=== PATIENT | male | born 1960 | race Caucasian/White ===

== ENCOUNTER → 2016-09-09 | Outpatient (REF) | payer MEDICARE ==
[~2016-09-09] MED LIST: /BISO10TA; /PANT40TA; /THIA10TA; /WARF5TA; ACET65TA; ACETYLCYSTEINE 10%; ALLE25CA; ALOP5TAB; AVAP300T; BISA10SU2; BISA5TA; COLA100C2; COUMADIN; FOLI1TAB; GLUC500T; HYDR25TA6; HYDROCODONE/ACETAMIN; INSULIN; LACT10SO8; MAALSUS; NEUR300C; OXYC20TA15; PERC5TAB8; PERC7.5T8; PROP40TA; THERGRAN; ZITH250T; ZOCO40TA
[2016-09-09 11:43] LABS: ALBUMIN 3.9 GM/DL (3.2-5.2); ANION GAP 10 MEQ/L (8-16); BLOOD UREA NITROGEN 11 MG/DL (7-18); CALCIUM LEVEL 9.1 MG/DL (8.5-10.1); CARBON DIOXIDE LEVEL 27 MEQ/L (21-32); CHLORIDE LEVEL 101 MEQ/L (98-107); CHOLESTEROL LEVEL 94 MG/DL (<200); CREATININE FOR GFR 1.06 MG/DL (0.70-1.30); GLOMERULAR FILTRATION RATE > 60.0 (>56); GLUCOSE, FASTING 220 MG/DL (70-105); PHOSPHORUS LEVEL 3.2 MG/DL (2.5-4.9); POTASSIUM SERUM 4.2 MEQ/L (3.5-5.1); SODIUM LEVEL 138 MEQ/L (136-145); TRIGLYCERIDES LEVEL 212 MG/DL (<150)
[2016-09-09 12:48] LABS: ANISOCYTOSIS 1+; BANDS 1 % (< 11); EOSINOPHILS 2 % (0-5); HYPOCHROMASIA 2+
[2016-09-09 15:32] LABS: MEAN CORPUSCULAR HGB CONC 28.9 g/dl (32.0-36.5); MEAN CORPUSCULAR VOLUME 79.5 fl (80.0-96.0); WHITE BLOOD COUNT 5.8 K/mm3 (4.0-10.0)
== END ==
LOC: M SFHCLERA 08:47
PROVIDERS: ATTEND Family Medicine
DX: D64.9 Anemia, unspecified (principal); E11.21 Type 2 diabetes mellitus with diabetic nephropathy; Z51.81 Encounter for therapeutic drug level monitoring

== ENCOUNTER → 2016-10-14 | Outpatient (CLI) | payer MEDICARE ==
--- NOTE | 2016-10-14 16:39 | REP ---
CHEST, TWO VIEWS: HISTORY: Cough. COMPARISON: 06/19/2014 An ill-defined parenchymal density approximately 2 cm in size is present in the right lower lobe. The left lung is clear. There is blunting of the right costophrenic angle due to a small pleural effusion. The heart is normal in size. The pulmonary vasculature is normal in appearance. Degenerative change is present in the thoracic spine. IMPRESSION: 1. There is a 2 cm ill-defined parenchymal density in the right lower lobe. CT of the chest is recommended for further evaluation. 2. Small right pleural effusion. Signed by Tigre Pickens MD 10/14/2016 04:42 P
== END ==
LOC: M LRY 15:14
PROVIDERS: ATTEND Family Medicine
DX: J40 Bronchitis, not specified as acute or chronic (principal); J90 Pleural effusion, not elsewhere classified; Z72.0 Tobacco use
CPT/HCPCS: 71020; 85610; G0463

== ENCOUNTER → 2016-10-20 | Outpatient (CLI) | payer MEDICARE ==
[~2016-10-20] MED LIST changes: +ISOVUE-370 76% 100ML VIAL (Q9967) As Ordered ONE
--- NOTE | 2016-10-21 10:01 | REP ---
CT CHEST WITH CONTRAST: 10/20/2016. Clinical history: Abnormal chest x-ray. Comparison: 10/14/2016, 06/19/2014 chest x-ray. Technique: Patient received a bolus of 75 ml of Isovue 370, scanning through the chest with both coronal and sagittal reconstructions. Findings: In the right lower lobe superior segment there is a pleural-based mass 2.7 x 2.6 x 2.2 cm. It has [id number] and there are multiple tiny nodular parenchymal densities adjacent to it. There is a small right pleural effusion. I do not see nodular infiltrate in the right middle lobe or upper lobe. There is some curvilinear fibroatelectatic change in the right lower lobe in the deep sulcus. The left lung shows no nodule, infiltrate, effusion, atelectasis or mass. There is no pleural thickening or calcified pleural plaque on the left or right side. Heart not enlarged. There is no pericardial thickening or effusion. The aorta is without aneurysm or dissection. It has a few calcifications in the arch and descending portion. There are subcentimeter nodes in the subcarinal, precarinal, right paratracheal and right hilar region. None of these are considered pathologic by CT size criteria. The main right and left pulmonary arteries are without filling defects. The bone windows show the sternum, manubrium, medial clavicles, humeral head portions visible, scapula, ribs and the spine without destructive lesion or evidence of metastatic disease. There are marginal osteophytes lower thoracic spine. The upper abdomen shows some splenomegaly with the transverse diameter of the spleen 17 cm. The left lobe of the liver is enlarged and the liver has lobulated margins throughout consistent with chronic liver disease. There may be hepatomegaly, but only a portion of the liver is included. No ascites. Adrenal glands without focal lesion. That visible small portion of upper poles of kidneys is intact. There is no hiatal hernia. That portion of the pancreas included was unremarkable. Upper abdominal aorta intact. Impression: 1. There is 2.7 x 2.6 x 2.2 cm pleural-based mass posteriorly in the superior segment of the right lower lobe with multiple tiny satellite nodules subcentimeter size adjacent and a small right effusion. I do not see other lung findings. There is no pathologic sized mediastinal or right hilar adenopathy. There is suspicious for a lung malignancy with possibility of a peripheral lung infarct felt somewhat less likely. 2. No acute or significant bone finding. 3. There is splenomegaly and evidence for chronic liver disease with enlarged left hepatic lobe with lobulated liver margins diffusely. 4. Suggest CT/PET evaluation and pulmonary consultation. Ultimately, biopsy of this lesion which is most suitable for transthoracic needle biopsy, is likely to be necessary. Signed by Willard Whipple MD 10/21/2016 02:56 P
== END ==
LOC: M RAD 16:58
PROVIDERS: ATTEND Family Medicine
DX: R91.8 Other nonspecific abnormal finding of lung field (principal); R16.1 Splenomegaly, not elsewhere classified
CPT/HCPCS: 71260; Q9967

== ENCOUNTER → 2016-11-17 | Outpatient (CLI) | payer MEDICARE ==
[~2016-11-17] MED LIST changes: -ISOVUE-370 76% 100ML VIAL (Q9967) As Ordered ONE; +LIDOCAINE 1% MDV 20ML VIAL As Ordered ONE
--- NOTE | 2016-11-17 10:23 | REP ---
LIMITED CT CHEST: Limited CT images of the chest are performed prior to a scheduled lung biopsy. Comparison made with prior study 10/20/2016. The previously noted mass like density in the left lower lobe has significantly improved. Currently measures are 15 x 9 mm, previously 2.7 x 2.6 cm. The biopsy is not performed, as presumably this represents resolving focal pneumonic consolidation. I would, however, recommend another followup CT of the chest in 1 month to ensure resolution. Signed by Cecil Gant MD 11/17/2016 04:54 P
== END ==
LOC: M RADPRO 08:48
PROVIDERS: ATTEND Internal Medicine Pulmonary Disease
DX: R91.8 Other nonspecific abnormal finding of lung field (principal); Z88.8 Allergy status to other drugs, medicaments and biological substances; Z79.84 Long term (current) use of oral hypoglycemic drugs; Z79.4 Long term (current) use of insulin; Z79.01 Long term (current) use of anticoagulants; Z79.899 Other long term (current) drug therapy; Z72.0 Tobacco use

== ENCOUNTER → 2017-02-11 | Outpatient (CLI) | payer MEDICARE, SELFPAY ==
[~2017-02-11] MED LIST changes: -LIDOCAINE 1% MDV 20ML VIAL As Ordered ONE
--- NOTE | 2017-02-11 11:21 | REP ---
CT CHEST WITHOUT CONTRAST: 02/11/2017 CLINICAL HISTORY: Followup for improving peripheral nodule superior segment right upper lobe. COMPARISON: CT chest 10/20/2016, limited images from cancelled CT guided needle biopsy 11/17/2016. TECHNIQUE: Noncontrast images through the chest were performed with coronal and sagittal reconstructions. FINDINGS: There is some minimal linear and curvilinear fibrotic change at the site of the 2.7 x 2.6 cm pleural-based lesion in the superior segment of the right lower lobe on the previous CT. This is all that remains of the original lesion with multiple tiny satellite nodules. I do not see pleural effusion in the deep sulcus of the right lower lobe. There is fibrotic change noted as well. Other minor areas of dependent atelectatic change is seen. There are no new nodules, masses, acute infiltrate or other significant findings. Cardiomediastinal silhouette and airway were unchanged. Pleural effusion. The aorta is without aneurysm and has a few calcifications in the descending portion. No pathologic sized mediastinal or hilar adenopathy, axillary and supraclavicular regions without mass or discrete finding. Bones with some degenerative changes in the spine and shoulders, but no destructive lesion or other acute finding, stable upper abdomen shows splenomegaly with a 16 cm vertical and transverse diameters of the spleen and a large left hepatic lobe with lobulated contour consistent with chronic liver disease. Liver is incompletely evaluated for size determination. That portion of gallbladder and pancreas included are intact. Adrenal glands intact. There is atrophy and scarring in the upper pole of the right kidney, the left upper pole intact. IMPRESSION: 1. Clearing of the inflammatory process in the superior segment right upper lobe with small amount of subpleural scarring now present and no residual nodules or mass. 2. Deep sulcus right lower lobe fibrotic change. No pleural effusion. No other new or acute findings. 3. Mediastinum, hilar findings are unchanged and unremarkable. 4. Chronic liver disease with enlarged left hepatic lobe and lobulated contours without discrete hepatic mass in that portion of liver included in the field of view. There is splenomegaly up to 16.7 cm diameter. No ascites. No other finding. Signed by Willard Whipple MD 02/11/2017 10:16 P
== END ==
LOC: M RAD 09:26
PROVIDERS: ATTEND Family Medicine
DX: R91.1 Solitary pulmonary nodule (principal); K76.89 Other specified diseases of liver; R16.1 Splenomegaly, not elsewhere classified

== ENCOUNTER → 2017-02-18 | Outpatient (REF) | payer MEDICARE ==
[2017-02-18 18:42] LABS: ALBUMIN 4.1 GM/DL (3.2-5.2); ALBUMIN/GLOBULIN RATIO 1.08 (1.00-1.93); ALKALINE PHOSPHATASE 49 U/L (45-117); ALT/SGPT 48 U/L (12-78); ANION GAP 10 MEQ/L (8-16); AST/SGOT 28 U/L (15-37); BILIRUBIN,TOTAL 0.5 MG/DL (0.2-1.0); BLOOD UREA NITROGEN 12 MG/DL (7-18); CALCIUM LEVEL 9.3 MG/DL (8.5-10.1); CARBON DIOXIDE LEVEL 27 MEQ/L (21-32); CHLORIDE LEVEL 101 MEQ/L (98-107); CREATININE FOR GFR 1.09 MG/DL (0.70-1.30); GLOMERULAR FILTRATION RATE > 60.0 (>56); GLUCOSE, FASTING 212 MG/DL (70-105); POTASSIUM SERUM 4.5 MEQ/L (3.5-5.1); SODIUM LEVEL 138 MEQ/L (136-145); TOTAL PROTEIN 7.9 GM/DL (6.4-8.2)
[2017-02-18 19:04] LABS: BASO % 0.4 % (0.0-1.0); EOS # 0.1 K/mm3 (0.0-0.50); EOS % 0.8 % (0.0-3.0); LARGE UNSTAINED CELL # 0.1 K/mm3 (0.0-0.4); LARGE UNSTAINED CELL % 0.9 % (0.0-4.0); LYMPH # 1.9 K/mm3 (1.5-4.5); LYMPH % 16.9 % (24.0-44.0); MEAN CORPUSCULAR HEMOGLOBIN 27.9 pg (27.0-33.0); MEAN CORPUSCULAR HGB CONC 32.2 g/dl (32.0-36.5); MEAN CORPUSCULAR VOLUME 86.5 fl (80.0-96.0); MONO # 0.5 K/mm3 (0.0-0.8); MONO % 5.1 % (0.0-5.0); NEUTROPHILS % 75.8 % (36.0-66.0); PLATELET COUNT, AUTOMATED 173 k/mm3 (150-450); RED CELL DISTRIBUTION WIDTH 15.5 % (11.5-14.5); WHITE BLOOD COUNT 10.5 K/mm3 (4.0-10.0)
== END ==
LOC: M SFHCLERA 12:25
PROVIDERS: ATTEND Dermatology
DX: L40.0 Psoriasis vulgaris (principal)

== ENCOUNTER → 2017-02-21 | Outpatient (REF) | payer MEDICARE ==
[2017-02-21 21:09] LABS: FERRITIN 9 NG/ML (26-388); PERCENT SATURATION 8.8 % (19.7-50.0); TOTAL IRON BINDING CAPACITY 532 UG/DL (250-450); TOTAL PROTEIN 7.6 GM/DL (6.4-8.2); VITAMIN B12 LEVEL 308 PG/ML (247-911)
[2017-02-21 21:51] LABS: REASON FOR REVIEW COMPREHENSIVE REVIEW
[2017-02-21 22:29] LABS: ERYTHROCYTE SEDIMENTATION RATE 11 mm/hr (0-20)
[2017-02-22 15:06] LABS: ALBUMIN % 55.3 % (55.8-66.1); GAMMA GLOBULIN % 15.5 % (11.1-18.8)
== END ==
LOC: M LAB REF 18:20
PROVIDERS: ATTEND Internal Medicine Medical Oncology
DX: D64.9 Anemia, unspecified (principal); D46.9 Myelodysplastic syndrome, unspecified; D69.6 Thrombocytopenia, unspecified

== ENCOUNTER → 2017-03-28 | Outpatient (REF) | payer MEDICARE ==
[2017-03-28 17:45] LABS: INR 1.92
== END ==
LOC: M SFHCLERA 13:31
PROVIDERS: ATTEND Family Medicine
DX: E11.21 Type 2 diabetes mellitus with diabetic nephropathy (principal); Z79.01 Long term (current) use of anticoagulants
CPT/HCPCS: 83036; 85610; G0463

== ENCOUNTER → 2017-08-04 | Outpatient (REF) | payer MEDICARE ==
[2017-08-04 17:38] LABS: INR 1.88; PROTHROMBIN TIME 22.2 SECONDS (12.4-14.5)
[2017-08-04 17:50] LABS: ESTIMATED AVERAGE GLUCOSE 197 MG/DL (60-110); HEMOGLOBIN A1c 8.5 %
== END ==
LOC: M SFHCLERA 15:05
DX: E11.21 Type 2 diabetes mellitus with diabetic nephropathy (principal); Z79.01 Long term (current) use of anticoagulants; Z23 Encounter for immunization
CPT/HCPCS: 83036

== ENCOUNTER → 2017-08-23 | Outpatient (REF) | payer MEDICARE ==
[2017-08-23 18:10] LABS: INR 2.24; PROTHROMBIN TIME 25.6 SECONDS (12.4-14.5)
== END ==
LOC: M SFHCLERA 12:03
DX: Z79.01 Long term (current) use of anticoagulants (principal)
CPT/HCPCS: 85610

== ENCOUNTER → 2017-10-17 | Outpatient (CLI) | payer MEDICARE | LOC: M SFHCLERA 15:03 | DX: J40 Bronchitis, not specified as acute or chronic (principal); Z51.81 Encounter for therapeutic drug level monitoring; Z79.01 Long term (current) use of anticoagulants | CPT/HCPCS: 71046; 85610 ==

== ENCOUNTER → 2017-11-21 | Outpatient (REF) | payer MEDICARE ==
[2017-11-21 18:07] LABS: INR 2.57; PROTHROMBIN TIME 28.6 SECONDS (12.4-14.5)
== END ==
LOC: M SFHCLERA 12:50
DX: Z51.81 Encounter for therapeutic drug level monitoring (principal); Z79.01 Long term (current) use of anticoagulants
CPT/HCPCS: 85610

== ENCOUNTER → 2018-02-13 | Outpatient (REF) | payer MEDICARE ==
[2018-02-13 17:30] LABS: INR 1.96; PROTHROMBIN TIME 22.7 SECONDS (12.1-14.4)
== END ==
LOC: M SFHCLERA 10:36
DX: Z51.81 Encounter for therapeutic drug level monitoring (principal); Z79.01 Long term (current) use of anticoagulants
CPT/HCPCS: 85610

== ENCOUNTER → 2018-02-27 | Outpatient (REF) | payer MEDICARE ==
[2018-02-27 11:52] LABS: INR 2.54; PROTHROMBIN TIME 27.9 SECONDS (12.1-14.4)
[2018-02-27 11:55] LABS: ESTIMATED AVERAGE GLUCOSE 212 MG/DL (60-110)
== END ==
LOC: M SFHCLERA 10:36
DX: Z51.81 Encounter for therapeutic drug level monitoring (principal); E11.21 Type 2 diabetes mellitus with diabetic nephropathy
CPT/HCPCS: 83036

== ENCOUNTER → 2018-06-16 | Outpatient (REF) | payer MEDICARE ==
[2018-06-16 17:05] LABS: INR 2.28; PROTHROMBIN TIME 25.6 SECONDS (12.1-14.4)
[2018-06-16 17:11] LABS: ANION GAP 11 MEQ/L (8-16); BLOOD UREA NITROGEN 11 MG/DL (7-18); CALCIUM LEVEL 8.1 MG/DL (8.5-10.1); CARBON DIOXIDE LEVEL 25 MEQ/L (21-32); CHLORIDE LEVEL 103 MEQ/L (98-107); CHOLESTEROL LEVEL 114 MG/DL (<200); CHOLESTEROL RISK RATIO 6.705 (<5); CREATININE FOR GFR 1.18 MG/DL (0.70-1.30); GLOMERULAR FILTRATION RATE > 60.0 (>56); GLUCOSE, FASTING 246 MG/DL (70-100); HDL CHOLESTEROL 17 MG/DL (>40); LDL CHOLESTEROL 39 MG/DL (<100); NON-HDL-C 97 MG/DL; POTASSIUM SERUM 4.6 MEQ/L (3.5-5.1); SODIUM LEVEL 139 MEQ/L (136-145); TRIGLYCERIDES LEVEL 290 MG/DL (<150)
[2018-06-16 18:00] LABS: MAU/CREAT RATIO 638.2 MCG/MG (0.0-30.0)
== END ==
LOC: M SFHCLERA 10:25
DX: Z51.81 Encounter for therapeutic drug level monitoring (principal); Z79.01 Long term (current) use of anticoagulants; E11.21 Type 2 diabetes mellitus with diabetic nephropathy
CPT/HCPCS: 80061

== ENCOUNTER → 2018-07-20 | Outpatient (REF) | payer MEDICARE ==
[2018-07-20 16:31] LABS: INR 2.28; PROTHROMBIN TIME 25.6 SECONDS (12.1-14.4)
[2018-07-20 16:45] LABS: HEMOGLOBIN A1c 9.2 %
== END ==
LOC: M SFHCLERA 11:54
PROVIDERS: ATTEND Family Medicine
DX: E11.21 Type 2 diabetes mellitus with diabetic nephropathy (principal); Z51.81 Encounter for therapeutic drug level monitoring
CPT/HCPCS: 83036; 85610; 93005; G0463

== ENCOUNTER → 2018-08-21 | Outpatient (CLI) | payer MEDICARE ==
--- NOTE | 2018-08-22 15:37 | PFTRPT ---
Height: 69.00 Inches Weight: 230.00 Lbs BSA: 2.19 Diagnosis: J44.9 DATE OF PROCEDURE: 08/21/2018 ORDERED BY: Dr. Ynes Romano Spirometry: Pre and post bronchodilator study of excellent technical quality. Forced vital capacity reduced. FEV1 is in proportion. Obstructive index is, therefore, normal. Flow Volume Loop: Expiratory limb of the flow volume loop suggests predominantly restrictive impairment. No significant bronchodilator response is identified. Lung Volumes: Total lung capacity reduced. Residual volume is borderline for air trapping. Diffusing Capacity: Diffusing capacity significantly reduced and does not completely correct for alveolar volume. Hemoglobin: No hemoglobin available for correction. Airway Mechanics: Airway resistance and conductance are normal. IMPRESSION: At least moderate restrictive ventilatory impairment with diffusing capacity impairment. Cannot rule out a degree of air trapping. Please correlate clinically. MTDD
== END ==
LOC: M CARPUL 10:05
PROVIDERS: ATTEND Family Medicine
DX: J44.9 Chronic obstructive pulmonary disease, unspecified (principal)

== ENCOUNTER → 2018-09-05 | Outpatient (REF) | payer MEDICARE ==
[~2018-09-05] MED LIST changes: +FENO54TA2 PO; +FERR325T3 PO; +FLON1SPR; +GABA-845 PO; +GLIM4TAB PO; +HUMU70IN SC; +LOSA100T50 PO; +METF850T4 PO; +METO200T28 PO; +NORC10TA21 PO; +OMEP20CA3 PO; +SIMV40TA2 PO; +WARF-23 PO
[2018-09-05 11:56] LABS: APPEARANCE, URINE CLEAR (CLEAR); BACTERIA, URINE AUTO NEGATIVE (NEGATIVE); BILIRUBIN, URINE AUTO NEGATIVE (NEGATIVE); BLOOD, URINE BLOOD NEGATIVE (NEGATIVE); COLOR, URINE STRAW (YELLOW); GLUCOSE, URINE (UA) AUTO 1+ mg/dL (NEGATIVE); KETONE, URINE AUTO NEGATIVE (NEGATIVE); LEUKOCYTE ESTERASE, URINE AUTO NEGATIVE (NEGATIVE); NITRITE, URINE AUTO NEGATIVE (NEGATIVE); PROTEIN, URINE AUTO 1+ mg/dL (NEGATIVE); RBC, URINE AUTO 0 /HPF (0-3); SPECIFIC GRAVITY URINE AUTO 1.009 (1.002-1.035); SQUAMOUS EPITHELIAL CELL UR AU 0 /HPF (0-6); UROBILINOGEN, URINE AUTO 0.2 mg/dL (0.0-2.0); WBC, URINE AUTO 3 /HPF (0-3)
[2018-09-06 19:36] LABS: PSA TOTAL 0.1 ng/mL (0.0-4.0)
== END ==
LOC: M SFHCLERA 09:24
PROVIDERS: ATTEND Family Medicine
DX: R35.1 Nocturia (principal)
CPT/HCPCS: 81001; 84154; 87086; G0463

== ENCOUNTER → 2018-09-05 | Outpatient (CLI) | payer OTHER ==
[~2018-09-05] MED LIST changes: -FERR325T3 PO
--- NOTE | 2018-09-05 10:18 | REP ---
LUMBAR SPINE, FIVE VIEWS: HISTORY: Chronic back pain. There is no acute fracture. The lumbar intervertebral discs are decreased in height consistent with disc degeneration. Osteophytes are present on L2-5. There is narrowing of the right L5-S1 facet joint. There are 5 mm of grade 1 spondylolisthesis of L5 on S1. IMPRESSION: Degenerative change as described above. Electronically Signed by Tigre Pickens MD 09/05/2018 10:20 A
== END ==
LOC: M LRY 09:39
PROVIDERS: ATTEND Physician Assistant Medical
DX: M51.36 Other intervertebral disc degeneration, lumbar region (principal)

== ENCOUNTER 2018-09-14 18:51 | Observation (INO) | payer MEDICARE ==
[~2018-09-14] VITALS: Ht 175.3 cm; Wt 111.4 kg
[2018-09-14] MEDS: HumuLIN (NovoLIN)70/30 INSULIN INJ PER UNIT SC SCH (00:35)
[~2018-09-14 18:51] MED LIST changes: -FENO54TA2 PO; -FLON1SPR; -GABA-845 PO; -GLIM4TAB PO; -HUMU70IN SC; -LOSA100T50 PO; -METF850T4 PO; -METO200T28 PO; -NORC10TA21 PO; -OMEP20CA3 PO; -SIMV40TA2 PO; -WARF-23 PO
[2018-09-14] MEDS ORDERED: IPRATROPIUM 0.5MG/ALBUTEROL 2.5MG INH SOL UD 3ML (DUONEB)(J7620) NEB ONE (19:45)
[2018-09-14] MEDS ORDERED: WARF-23 PO (20:01)
[2018-09-14] MEDS ORDERED: FLON1SPR (20:01)
[2018-09-14] MEDS ORDERED: METF850T4 PO (20:01)
[2018-09-14] MEDS ORDERED: NORC10TA21 PO (20:01)
[2018-09-14] MEDS ORDERED: GABA-845 PO (20:01)
[2018-09-14] MEDS ORDERED: SIMV40TA2 PO (20:01)
[2018-09-14] MEDS ORDERED: LOSA100T50 PO (20:01)
[2018-09-14] MEDS ORDERED: OMEP20CA3 PO (20:01)
[2018-09-14] MEDS ORDERED: FENO54TA2 PO (20:01)
[2018-09-14] MEDS ORDERED: HUMU70IN SC (20:01)
[2018-09-14] MEDS ORDERED: GLIM4TAB PO (20:01)
[2018-09-14] MEDS ORDERED: METO200T28 PO (20:01)
[2018-09-14 20:12] LABS: INR 2.43; PROTHROMBIN TIME 26.9 SECONDS (12.1-14.4)
[2018-09-14 20:13] LABS: PARTIAL THROMBOPLASTIN TIME 40.1 SECONDS (25.4-37.6)
[2018-09-14 20:23] LABS: ALBUMIN 3.3 GM/DL (3.2-5.2); BILIRUBIN,DIRECT 0.1 MG/DL (0.0-0.2); BILIRUBIN,TOTAL 0.4 MG/DL (0.2-1.0); TOTAL PROTEIN 6.7 GM/DL (6.4-8.2)
[2018-09-14] MEDS ORDERED: NORCO, ANEXSIA 5/325MG TABLET (HYDROcodone/ACETAMINOPHEN) PO ONE (21:00)
[2018-09-14] MEDS ORDERED: FLUTICASONE PROP 0.05% NASAL SPRAY 16 GM (FLONASE) PRN (21:00)
[2018-09-14 21:23] LABS: PERCENT SATURATION 2.6 % (19.7-50.0)
[2018-09-14 21:32] LABS: FOLATE 8.6 NG/ML (>5.4)
--- NOTE | 2018-09-14 21:36 | HPE ---
DATE OF ADMISSION: 09/14/2018 PRIMARY CARE PROVIDER: Dr. Tavera ATTENDING PHYSICIAN: Dr. Gina Chen CHIEF COMPLAINT: Generalized weakness and abnormal blood test. HISTORY OF PRESENT ILLNESS: The patient is a 58-year-old white male with several chronic medical conditions listed below who came to the emergency room (ER) for evaluation of above complaints. History is provided by himself. Per the patient, he had a history of stroke as well as possible deep venous thrombosis (DVT) and he was on Coumadin. Also he has chronic very severe pain in his left lower extremity and for that he is on chronic narcotics. He follows with a pain specialist in [place] at [facility]. He is planned for implantation of a stimulator to control his pain so he was referred to see his primary care provider (PCP) today to do a blood test pre-procedure. His PCP office called him this afternoon and asked him to come to the ER for followup evaluation due to abnormal blood tests. Otherwise, he stated he has some general weakness, but otherwise no other symptoms. In the ER, his blood test was done which demonstrated his hemoglobin and hematocrit was down to 6.1/25. He had a normal CBC done here in 2017. Since then, we do not have a blood test record in the computer system here in the hospital. Also in the ER, his stool was checked but inactive for the guaiac per ER attending. He is planned for a packed red blood cell (RBC) transfusion, meanwhile medicine service is called for admission. REVIEW OF SYSTEMS: Denies fever, no chills, no headache, blurred vision. No shortness of breath, no chest pain. No abdominal pain, no nausea, no vomiting, no hematemesis, no black stool. All other systems reviewed, but negative. PAST MEDICAL HISTORY: 1. Hypertension. 2. Type 2 diabetes. 3. Dyslipidemia. 4. History of stroke in 2001. 5. History of question of deep venous thrombosis (DVT) in 2008. 6. Psoriasis. 7. He is on chronic Coumadin treatment. PAST SURGICAL HISTORY: Left below knee amputation (BKA) in 2008, EGD and colonoscopy done by Dr. Richardson in 2016. ALLERGIES: Allergic to HEPARIN and NIACIN. MEDICATIONS: - Neurontin 400 mg five times a day - glimepiride 4 mg by mouth twice a day - insulin 70/30 65 units twice a day - losartan 100 mg by mouth daily - metformin 850 mg by mouth with meals - metoprolol 200 mg by mouth daily - omeprazole 20 mg by mouth daily - simvastatin 40 mg by mouth nightly - Coumadin 5 mg by mouth daily - [place] 10/325 twice a day as needed - fenofibrate 54 mg by mouth daily SOCIAL HISTORY: Active tobacco use, a pack a day for more than 20 years which is ongoing. No alcohol abuse. No illicit drug abuse. He is , his from esophageal cancer. He is FULL CODE. FAMILY HISTORY: Noncontributory. PHYSICAL EXAMINATION: VITAL SIGNS: Temperature 98.1, heart rate 97, respiratory rate 18, blood pressure 149/67, oxygen saturation 97% in room air. GENERAL: He is awake, alert, oriented times three. He is not in acute distress. HEENT: Atraumatic. Pupils equal, round, reactive to light. No jaundice. Extraocular muscles intact. Ears, nose, and throat normal. Mouth: Mucus moist. NECK: No jugular venous distention (JVD), no bruits. LUNGS: Clear, no wheezing, no crackles. HEART: S1, S2, regular, no murmur. ABDOMEN: Soft, bowel sounds positive, nontender. LOWER EXTREMITIES: No edema in bilateral lower extremities. Positive left BKA. SKIN: Positive rash for psoriasis. NEUROLOGIC: Nonfocal. PSYCHOLOGIC: No acute psychosis. DIAGNOSTIC AND LABORATORIES: Include the following: CBC and differential: WBC 8, hemoglobin and hematocrit 6.1/25, platelets 114. Sodium 139, potassium 4.5, chloride 107, bicarbonate 24, BUN 15, creatinine 1.06, glucose 89, INR was 2.4. IMPRESSION: 1. Symptomatic iron deficiency anemia. 2. Hypertension. 3. Type 2 diabetes. 4. Dyslipidemia. 5. History of stroke and deep venous thrombosis (DVT) on chronic Coumadin treatment. PLAN: Patient will be admitted to medical/surgical floor for observation. It seems like he has iron deficiency anemia but he had an EGD and colonoscopy done 3 years ago which was normal and the stool sent was negative for guaiac. He will get packed red blood cell (RBC) transfusion. I will check an iron profile. Will continue his home medications. Most likely he can followup with his primary care provider (PCP) and may refer to see primer powder blender wet as outpatient. I do not believe he needs an EGD or colonoscopy in this admission.
[2018-09-14] MEDS: GABAPENTIN 400 MG CAP PO SCH ×2 (22:08→22:11)
[2018-09-14] MEDS: GLIMEPIRIDE 2 MG TAB PO SCH (22:11)
[2018-09-14] MEDS: SIMVASTATIN 40 MG TAB PO SCH (22:11)
[2018-09-14] MEDS: WARFARIN SOD 5 MG TAB PO SCH (22:29)
[2018-09-14 23:20] VITALS: BP 156/76
[2018-09-15] VITALS (8 sets, daily range): BP systolic 120–168; BP diastolic 60–79
[2018-09-15 06:39] LABS: HEMATOCRIT 26.9 % (42.0-52.0); HEMOGLOBIN 7.3 g/dl (13.5-17.5); MEAN CORPUSCULAR HGB CONC 27.1 g/dl (32.0-36.5); MEAN CORPUSCULAR VOLUME 73.7 fl (80.0-96.0); RED BLOOD COUNT 3.65 10^6/uL (4.30-6.10); WHITE BLOOD COUNT 6.7 10^3/uL (4.0-10.0)
[2018-09-15 06:47] LABS: INR 2.2; PROTHROMBIN TIME 24.9 SECONDS (12.1-14.4)
[2018-09-15 06:58] LABS: PLATELET COUNT, AUTOMATED 92 10^3/uL (150-450)
[2018-09-15] MEDS: HumaLOG INSULIN (NovoLOG) PER UNIT SC SCH ×3 (07:30→17:07)
[2018-09-15] MEDS ORDERED: IRON SUCROSE 500 MG in NS 250 ML IV ONE (07:45)
[2018-09-15] MEDS ORDERED: GLUCAGON FOR INJ 1 MG VIAL (J1610) SC PRN (08:00)
[2018-09-15] MEDS ORDERED: metFORMIN 850 MG TAB PO SCH (08:00)
[2018-09-15] MEDS ORDERED: GLUCOSE 4 GM CHEW TABLET PO PRN (08:00)
[2018-09-15] MEDS ORDERED: DEXTROSE 50% 50 ML SYRINGE IV PRN (08:00)
--- NOTE | 2018-09-15 08:14 | REP ---
Portable chest, single AP upright view, 08:07 p.m.: Comparison is 10/17/2017. Lung jha are clear. Cardiac size appears enlarged although this could be artifactual from portable positioning. The faizan, mediastinum, and bony thorax are unremarkable. Impression: Cardiomegaly as described, otherwise negative portable chest. Electronically Signed by Cecil Diaz MD 09/15/2018 08:05 A
[2018-09-15] MEDS: CYANOCOBALAMIN 1,000 MCG/ML VIAL (J3420) IM SCH (09:00)
[2018-09-15] MEDS: HumuLIN (NovoLIN)70/30 INSULIN INJ PER UNIT SC SCH ×2 (09:00→20:49)
[2018-09-15] MEDS ORDERED: IRON SUCROSE 500 MG in NS 250 ML OVER 4 HRS IV ONE (09:00)
[2018-09-15] MEDS: GABAPENTIN 400 MG CAP PO SCH ×4 (11:56→20:48)
[2018-09-15] MEDS: OMEPRAZOLE 20 MG CAP PO SCH (11:56)
[2018-09-15] MEDS: METOPROLOL SUCC (TopROL XL) 100MG *XL* TAB PO SCH (11:56)
[2018-09-15] MEDS: LOSARTAN 50 MG TAB PO SCH (11:57)
[2018-09-15] MEDS: GLIMEPIRIDE 2 MG TAB PO SCH ×2 (11:57→20:48)
[2018-09-15] MEDS ORDERED: FUROSEMIDE 40 MG/4 ML VIAL (J1940) IV ONE (12:00)
[2018-09-15] MEDS: FENOFIBRATE 48 MG TAB (TRICOR) PO SCH (12:01)
[2018-09-15] MEDS: NORCO, ANEXSIA 5/325MG TABLET (HYDROcodone/ACETAMINOPHEN) PO PRN ×2 (12:02→20:50)
[2018-09-15] MEDS: NICOTINE 21MG/24HR 1 EA TRANSDERMAL TD SCH (12:20)
[2018-09-15] MEDS: ALBUTEROL SULFATE 2.5 MG/0.5 ML INH NEB SOLN NEB SCH ×2 (14:18→20:22)
[2018-09-15] MEDS: WARFARIN SOD 5 MG TAB PO SCH (17:07)
[2018-09-15] MEDS: SIMVASTATIN 40 MG TAB PO SCH (20:48)
[2018-09-15] MEDS ORDERED: HumaLOG INSULIN (NovoLOG) PER UNIT SC SCH (21:00)
[2018-09-16] MEDS: GABAPENTIN 400 MG CAP PO SCH ×2 (05:41→08:35)
[2018-09-16] MEDS: NORCO, ANEXSIA 5/325MG TABLET (HYDROcodone/ACETAMINOPHEN) PO PRN (05:42)
[2018-09-16 06:00] VITALS: BP 143/63
[2018-09-16] MEDS ORDERED: FUROSEMIDE 40 MG/4 ML VIAL (J1940) IV ONE (06:00)
[2018-09-16] MEDS: HumaLOG INSULIN (NovoLOG) PER UNIT SC SCH (07:30)
[2018-09-16] MEDS: ALBUTEROL SULFATE 2.5 MG/0.5 ML INH NEB SOLN NEB SCH (08:00)
[2018-09-16] MEDS: GLIMEPIRIDE 2 MG TAB PO SCH (08:35)
[2018-09-16] MEDS: FENOFIBRATE 48 MG TAB (TRICOR) PO SCH (08:35)
[2018-09-16] MEDS: CYANOCOBALAMIN 1,000 MCG/ML VIAL (J3420) IM SCH (08:35)
[2018-09-16] MEDS: OMEPRAZOLE 20 MG CAP PO SCH (08:35)
[2018-09-16] MEDS: LOSARTAN 50 MG TAB PO SCH (08:35)
[2018-09-16 08:36] VITALS: BP 143/63
[2018-09-16 08:36] LABS: HEMATOCRIT 33.2 % (42.0-52.0); MEAN CORPUSCULAR HEMOGLOBIN 20.8 pg (27.0-33.0); MEAN CORPUSCULAR HGB CONC 28.3 g/dl (32.0-36.5); MEAN CORPUSCULAR VOLUME 73.3 fl (80.0-96.0); RED BLOOD COUNT 4.53 10^6/uL (4.30-6.10); WHITE BLOOD COUNT 8.9 10^3/uL (4.0-10.0)
[2018-09-16] MEDS: HumuLIN (NovoLIN)70/30 INSULIN INJ PER UNIT SC SCH (08:36)
[2018-09-16] MEDS: METOPROLOL SUCC (TopROL XL) 100MG *XL* TAB PO SCH (08:36)
[2018-09-16] MEDS: NICOTINE 21MG/24HR 1 EA TRANSDERMAL TD SCH (08:36)
[2018-09-16 08:38] LABS: HEMOGLOBIN 9.4 g/dl (13.5-17.5); PLATELET COUNT, AUTOMATED 86 10^3/uL (150-450)
[2018-09-16 08:53] LABS: BLOOD UREA NITROGEN 10 MG/DL (7-18); CALCIUM LEVEL 9.1 MG/DL (8.5-10.1); CARBON DIOXIDE LEVEL 27 MEQ/L (21-32); CHLORIDE LEVEL 102 MEQ/L (98-107); GLOMERULAR FILTRATION RATE > 60.0 (>56); GLUCOSE, FASTING 105 MG/DL (70-100); POTASSIUM SERUM 3.9 MEQ/L (3.5-5.1); SODIUM LEVEL 139 MEQ/L (136-145)
[2018-09-16] MEDS ORDERED: FERR325T3 PO (09:19)
--- NOTE | 2018-09-16 10:23 | DSES ---
DATE OF ADMISSION: 09/14/2018 DATE OF DISCHARGE: 09/16/2018 (pending) PRINCIPAL DIAGNOSIS: Severe anemia secondary to iron deficiency. HISTORY: Alin Daigle was admitted for severe anemia. He had been in his primary care providers office on 09/14/2018, was found to be anemic, was referred to the emergency room. Details were sufficient for admission. HOSPITAL COURSE: Patient admitted to a medical bed. He was transfused 4 units of packed red blood cells. Unfortunately they did not have any labs ordered for this morning so I do not know what his hemoglobin is. I assume it is improved. He is having no active bleeding. Stool is negative for occult blood in the emergency room. Lab studies have confirmed severe iron deficiency with about the lowest reticulocyte hemoglobin equivalent that I have seen. TIBC is high. Ferritin is low. It is all consistent with anemia of chronic disease. He has had upper and lower endoscopy. He had EGD and colonoscopy 03/10/2016. His small bowel biopsy was negative for celiac disease. His esophageal biopsy showed mild to moderate chronic inflammation but no intestinal metaplasia/Sanchez's. He had tubular adenoma removed. His urine now is negative for blood. He has had no epistaxis. I presume this was chronic GI blood loss. SIGNIFICANT LABS: As noted, he does not have any lab work ordered for this morning. Yesterday his hemoglobin was 7.3 after getting transfusions. 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 Myelodysplasia appeared less likely. It was sent to [facility] for markers, second opinion, etc.. They did not find any evidence of myeloproliferative problem, lymphoma, etc.. DISPOSITION: Will order morning labs. If his hemoglobin is improved as expected, he would like to go home. The rest of the workup can be done as an outpatient. I suggest he has a repeat upper and lower endoscopy and possibly even capsule endoscopy. He has a history of significant thromboembolic disease and is not actively bleeding so I am not holding his warfarin. He will be discharged home on the same medicines he was taking prior to admission. - fenofibrate 54 mg daily - fluticasone - gabapentin 400 mg five times daily - glimepiride 4 mg twice daily - 70/30 insulin 65 units twice daily - Losartan 100 mg daily - metformin 850 mg three times daily with meals - Toprol XL 200 mg daily - omeprazole 20 mg daily - simvastatin 40 mg daily - warfarin 5 mg daily - [place] as needed He has a number of pending labs. They can be followed up as an outpatient including haptoglobin, methylmalonic acid, homocysteine. Repeat TTG for celiac. Activity as tolerated. Diet: Continue to be no concentrated sweets and no added salt. Followup with Dr. Tavera at the [facility] office next week. Again this is all pending results of today's labs being called to me.
[2018-09-17 00:07] LABS: HOMOCYST(E)INE SERUM 15.9 umol/L (0.0-15.0)
== END 2018-09-16 10:30 | disposition home or self-care (01) ==
LOC: M ED 18:51 → M ED INP 20:49 → M MS5PR 23:20
PROVIDERS: ADMIT Hospitalist; ATTEND Internal Medicine Nephrology
DX: D50.0 Iron deficiency anemia secondary to blood loss (chronic) (principal); E11.9 Type 2 diabetes mellitus without complications; I10 Essential (primary) hypertension; E78.5 Hyperlipidemia, unspecified; L40.8 Other psoriasis; Z79.4 Long term (current) use of insulin; Z89.512 Acquired absence of left leg below knee; F17.210 Nicotine dependence, cigarettes, uncomplicated; Z79.84 Long term (current) use of oral hypoglycemic drugs; Z79.01 Long term (current) use of anticoagulants; Z86.73 Personal history of transient ischemic attack (TIA), and cerebral infarction without residual deficits; Z86.718 Personal history of other venous thrombosis and embolism
CPT/HCPCS: 36415; 36430; 71045; 80048; 80076; 82607; 82728; 82746; 83010; 83036; 83090; 83516; 83550; 83615; 83880; 83921; 85025; 85027; 85046; 85049; 85055; 85610; 85730; 86850; 86900; 86901; 86920; 94640; 96372; 96374; 96376; 99285; G0378; G0463; J1756; J1940; J3420; P9016

== ENCOUNTER → 2018-09-14 | Outpatient (CLI) | payer MEDICARE ==
[2018-09-14 17:11] LABS: BASO % 0.5 % (0.0-1.0); EOS # 0.1 10^3/uL (0.0-0.50); EOS % 1.6 % (0.0-3.0); LYMPH # 1.3 10^3/uL (1.5-4.5); LYMPH % 15.1 % (24.0-44.0); MEAN CORPUSCULAR HEMOGLOBIN 17.8 pg (27.0-33.0); MEAN CORPUSCULAR HGB CONC 24.3 g/dl (32.0-36.5); MEAN CORPUSCULAR VOLUME 73.2 fl (80.0-96.0); MONO # 0.6 10^3/uL (0.0-0.8); MONO % 7.2 % (0.0-5.0); NEUTROPHILS # 6.2 10^3/uL (1.8-7.7); NEUTROPHILS % 74.6 % (36.0-66.0); PLATELET COUNT, AUTOMATED 114 10^3/uL (150-450); RED BLOOD COUNT 3.43 10^6/uL (4.30-6.10); WHITE BLOOD COUNT 8.3 10^3/uL (4.0-10.0)
[2018-09-14 17:28] LABS: HEMOGLOBIN 6.1 g/dl (13.5-17.5)
[2018-09-14 17:29] LABS: HEMATOCRIT 25.1 % (42.0-52.0)
[2018-09-14 17:51] LABS: BLOOD UREA NITROGEN 15 MG/DL (7-18); CALCIUM LEVEL 8.4 MG/DL (8.5-10.1); CARBON DIOXIDE LEVEL 24 MEQ/L (21-32); CHLORIDE LEVEL 107 MEQ/L (98-107); CREATININE FOR GFR 1.06 MG/DL (0.70-1.30); GLOMERULAR FILTRATION RATE > 60.0 (>56); GLUCOSE, FASTING 89 MG/DL (70-100); POTASSIUM SERUM 4.5 MEQ/L (3.5-5.1); SODIUM LEVEL 139 MEQ/L (136-145)
== END ==
LOC: M LRY 10:52
PROVIDERS: ATTEND Physical Medicine & Rehabilitation
DX: G54.6 Phantom limb syndrome with pain (principal)

== ENCOUNTER → 2018-09-14 | Outpatient (REF) | payer MEDICARE ==
[2018-09-14 17:23] LABS: ALBUMIN 3.5 GM/DL (3.2-5.2); BILIRUBIN,DIRECT 0.2 MG/DL (0.0-0.2); BILIRUBIN,TOTAL 0.4 MG/DL (0.2-1.0); TOTAL PROTEIN 7.2 GM/DL (6.4-8.2)
[2018-09-14 18:21] LABS: HEMOGLOBIN A1c 5.5 %
== END ==
LOC: M SFHCLERA 10:22
PROVIDERS: ATTEND Family Medicine
DX: E11.21 Type 2 diabetes mellitus with diabetic nephropathy (principal); R06.02 Shortness of breath

== ENCOUNTER → 2018-09-21 | Outpatient (REF) | payer MEDICARE ==
[~2018-09-21] MED LIST changes: -/BISO10TA; -/PANT40TA; -/WARF5TA; +COUM1TAB17; +FENO54TA2 PO; +FERR325T3 PO; +FLON1SPR; +GABA-845 PO; +GLIM4TAB PO; +HUMU70IN SC; +LOSA100T50 PO; +METF850T4 PO; +METO200T28 PO; +NORC10TA21 PO; +OMEP20CA3 PO; +PROT1TAB2; +SIMV40TA2 PO; +WARF-23 PO; +ZEBE1TAB
[2018-09-21 12:44] LABS: INR 2.12; PROTHROMBIN TIME 24.1 SECONDS (12.1-14.4)
== END ==
LOC: M SFHCLERA 10:10
PROVIDERS: ATTEND Family Medicine
DX: D64.9 Anemia, unspecified (principal); K76.0 Fatty (change of) liver, not elsewhere classified; Z51.81 Encounter for therapeutic drug level monitoring
CPT/HCPCS: 82105; 85610; 86256; G0463

== ENCOUNTER → 2018-10-05 | Outpatient (CLI) | payer MEDICARE ==
[~2018-10-05] MED LIST changes: +/BISO10TA; +/PANT40TA; +/WARF5TA; -COUM1TAB17; -PROT1TAB2; -ZEBE1TAB
--- NOTE | 2018-10-05 15:54 | REP ---
Clinical: Chronic cough. Technique: Axial noncontrast images from the thoracic inlet to the upper abdomen with coronal and sagittal re-formations. Comparison: 02/11/2017. Findings: Moderate chronic scattered fibroatelectatic changes and mild pleuroparenchymal changes remain essentially stable when compared to 02/11/2017. However, there appears to be a 2.1 x 1.6 cm soft tissue lesion in the medial right lower lobe (axial image 63; sagittal image 54) which represents a new lesion as compared to prior examination. Mild mediastinal and hilar lymph nodes remain essentially stable. Tracheobronchial tree is patent. Mediastinum demonstrates stable thoracic aorta, pulmonary vasculature and heart/pericardium with mild atherosclerotic changes noted. No pericardial effusion. No significant focal osseous abnormality identified. Impression: New 2.1 cm soft tissue lesion in the medial right lower lobe. Follow-up investigation may include contrast enhanced chest CT and/or PET-CT. Pulmonology consultation is recommended. Electronically Signed by Feliz Vitale MD 10/05/2018 03:46 P
== END ==
LOC: M RAD 15:18
PROVIDERS: ATTEND Family Medicine
DX: D50.9 Iron deficiency anemia, unspecified (principal); R91.8 Other nonspecific abnormal finding of lung field; R05 Cough

== ENCOUNTER → 2018-10-10 | Outpatient (REF) | payer MEDICARE ==
[~2018-10-10] MED LIST changes: -/BISO10TA; -/PANT40TA; -/WARF5TA; +COUM1TAB17; +PROT1TAB2; +ZEBE1TAB
[2018-10-16 14:52] LABS: ANCA-ATYPICAL <1:20 titer (Neg:<1:20); ANTI DOUBLE STRAND-DNA AB <1 IU/mL (0-9); ANTINUCLEAR ANTIBODIES DIRECT Negative (Negative); CYTOPLASMIC NEUTROP AB ANCA-C <1:20 titer (Neg:<1:20); PERINUCLEAR AB ANCA-P <1:20 titer (Neg:<1:20); RNP ANTIBODIES 0.4 AI (0.0-0.9); SJOGREN'S ANTI SS-A <0.2 AI (0.0-0.9); SJOGREN'S ANTI SS-B <0.2 AI (0.0-0.9); SMITH ANTIBODIES <0.2 AI (0.0-0.9)
[2018-10-17 00:06] LABS: A1A FOR PHENOTYPE 102 mg/dL (90-200); ALPHA-1-ANTITRYPSIN PHENOTYPE MZ (.); ASPERGILLUS FLAVUS ABY Negative (Neg:<1:1); ASPERGILLUS FUMIGATUS ABY Negative (Neg:<1:1); ASPERGILLUS NIGER ABY Negative (Neg:<1:1); BLASTOMYCES ANTIBODY LEVEL Negative (Neg:<1:1); CRYPTOCOCCUS ANTIGEN SER Negative (Negative); HISTOPLASMOSIS ANTIBODY Negative (Neg:<1:1)
== END ==
LOC: M LAB REF 15:23
PROVIDERS: ATTEND Internal Medicine Pulmonary Disease
DX: G47.33 Obstructive sleep apnea (adult) (pediatric) (principal); R91.8 Other nonspecific abnormal finding of lung field

== ENCOUNTER → 2018-10-12 | Outpatient (REF) | payer MEDICARE ==
[~2018-10-12] MED LIST changes: -NORC10TA21 PO; +NORC1TAB5 PO
[2018-10-12 17:24] LABS: BASO % 0.5 % (0.0-1.0); EOS # 0.1 10^3/uL (0.0-0.50); EOS % 1.5 % (0.0-3.0); HEMATOCRIT 39.4 % (42.0-52.0); HEMOGLOBIN 11.7 g/dl (13.5-17.5); LYMPH # 1.2 10^3/uL (1.5-4.5); LYMPH % 16.1 % (24.0-44.0); MEAN CORPUSCULAR HGB CONC 29.7 g/dl (32.0-36.5); MEAN CORPUSCULAR VOLUME 84.2 fl (80.0-96.0); MONO # 0.5 10^3/uL (0.0-0.8); MONO % 6.8 % (0.0-5.0); NEUTROPHILS # 5.5 10^3/uL (1.8-7.7); NEUTROPHILS % 74.8 % (36.0-66.0); PLATELET COUNT, AUTOMATED 133 10^3/uL (150-450); RED BLOOD COUNT 4.68 10^6/uL (4.30-6.10); WHITE BLOOD COUNT 7.4 10^3/uL (4.0-10.0)
== END ==
LOC: M SFHCLERA 11:29
PROVIDERS: ATTEND Family Medicine
DX: D64.9 Anemia, unspecified (principal)
CPT/HCPCS: 85025; G0463

== ENCOUNTER → 2018-11-21 | Outpatient (REF) | payer MEDICARE ==
[2018-11-21 17:59] LABS: ALBUMIN 3.9 GM/DL (3.2-5.2); ALT/SGPT 55 U/L (12-78); BILIRUBIN,TOTAL 0.4 MG/DL (0.2-1.0); BLOOD UREA NITROGEN 14 MG/DL (7-18); CALCIUM LEVEL 9.2 MG/DL (8.5-10.1); CARBON DIOXIDE LEVEL 29 MEQ/L (21-32); CHLORIDE LEVEL 103 MEQ/L (98-107); CREATININE FOR GFR 1.12 MG/DL (0.70-1.30); GLOMERULAR FILTRATION RATE > 60.0 (>56); GLUCOSE, FASTING 155 MG/DL (70-100); POTASSIUM SERUM 4.4 MEQ/L (3.5-5.1); SODIUM LEVEL 138 MEQ/L (136-145)
[2018-11-21 18:44] LABS: HEMOGLOBIN A1c 8.1 %
== END ==
LOC: M SFHCLERA 13:23
PROVIDERS: ATTEND Family Medicine
DX: E11.21 Type 2 diabetes mellitus with diabetic nephropathy (principal)

== ENCOUNTER → 2018-12-07 | Outpatient (REF) | payer MEDICARE ==
[2018-12-07 17:31] LABS: INR 3.37; PROTHROMBIN TIME 34.9 SECONDS (12.1-14.4)
[2018-12-07 17:54] LABS: ALBUMIN 3.9 GM/DL (3.2-5.2); ALT/SGPT 62 U/L (12-78); BILIRUBIN,TOTAL 0.5 MG/DL (0.2-1.0); BLOOD UREA NITROGEN 12 MG/DL (7-18); CALCIUM LEVEL 9.2 MG/DL (8.5-10.1); CARBON DIOXIDE LEVEL 23 MEQ/L (21-32); CHLORIDE LEVEL 99 MEQ/L (98-107); CREATININE FOR GFR 1.27 MG/DL (0.70-1.30); GLOMERULAR FILTRATION RATE > 60.0 (>56); GLUCOSE, FASTING 415 MG/DL (70-100); POTASSIUM SERUM 4.5 MEQ/L (3.5-5.1); SODIUM LEVEL 135 MEQ/L (136-145); TOTAL PROTEIN 7.8 GM/DL (6.4-8.2)
== END ==
LOC: M SFHCLERA 10:57
PROVIDERS: ATTEND Family Medicine
DX: R91.1 Solitary pulmonary nodule (principal); E11.21 Type 2 diabetes mellitus with diabetic nephropathy; Z79.01 Long term (current) use of anticoagulants
CPT/HCPCS: 80053; 85610; 86140; 86200; G0463

== ENCOUNTER → 2019-02-01 | Outpatient (REF) | payer MEDICARE ==
[~2019-02-01] MED LIST changes: -GLIM4TAB PO; +GLIM4TAB5 PO; +OMEP1CAP73 PO; -OMEP20CA3 PO; +OTEZ1TAB3 PO; -SIMV40TA2 PO; +SIMV40TA20 PO
[2019-02-01 18:19] LABS: INR 3.31; PROTHROMBIN TIME 33.6 SECONDS (11.8-14.0)
[2019-02-01 18:28] LABS: FREE T4 0.83 NG/DL (0.76-1.46); THYROID STIMULATING HORMONE 1.21 uIU/ML (0.358-3.740)
== END ==
LOC: M SFHCLERA 11:15
PROVIDERS: ATTEND Family Medicine
DX: R53.82 Chronic fatigue, unspecified (principal); Z51.81 Encounter for therapeutic drug level monitoring; Z79.01 Long term (current) use of anticoagulants
CPT/HCPCS: 84439; 84443; 85610; G0463

== ENCOUNTER → 2019-02-13 | Outpatient (CLI) | payer MEDICARE ==
[~2019-02-13] MED LIST changes: +GLIM4TAB PO; -GLIM4TAB5 PO; -OMEP1CAP73 PO; +OMEP20CA4 PO; +SIMV40TA2 PO; -SIMV40TA20 PO
--- NOTE | 2019-02-15 15:10 | REP ---
HISTORY: Lung nodule. COMPARISON: Prior CT 10/05/2018 showed a 2.1 cm sized nodule in the right lower lobe. The prior CT was reviewed. After the intravenous administration of 9.75 mCi of FDG-18 triplane whole body PET/CT was performed from the skull base to the mid thigh. There is no abnormal hypermetabolic activity seen in the neck, chest, abdomen, or pelvis. IMPRESSION: The nodule seen in the right lung is not hypermetabolic. Negative CT/PET. Electronically Signed by Harjit Porter DO 02/15/2019 05:01 P
== END ==
LOC: M PLARAD 14:23
PROVIDERS: ATTEND Family Medicine
DX: R91.1 Solitary pulmonary nodule (principal)
CPT/HCPCS: 78815; A9552

== ENCOUNTER → 2019-03-14 | Outpatient (REF) | payer MEDICARE ==
[2019-03-14 17:05] LABS: INR 2.59; PROTHROMBIN TIME 27.6 SECONDS (11.8-14.0)
== END ==
LOC: M SFHCLERA 11:51
PROVIDERS: ATTEND Family Medicine
DX: Z51.81 Encounter for therapeutic drug level monitoring (principal); Z79.899 Other long term (current) drug therapy

== ENCOUNTER → 2019-05-01 | Outpatient (REF) | payer MEDICARE ==
[~2019-05-01] MED LIST changes: -GLIM4TAB PO; +GLIM4TAB3 PO
[2019-05-01 12:39] LABS: BASO % 0.6 % (0.0-1.0); EOS # 0.1 10^3/uL (0.0-0.5); EOS % 2.2 % (0.0-3.0); HEMATOCRIT 41.3 % (42.0-52.0); LYMPH # 0.9 10^3/uL (1.5-5.0); LYMPH % 18.5 % (24.0-44.0); MEAN CORPUSCULAR HEMOGLOBIN 29.1 pg (27.0-33.0); MEAN CORPUSCULAR HGB CONC 31.5 g/dl (32.0-36.5); MEAN CORPUSCULAR VOLUME 92.4 fl (80.0-96.0); MONO # 0.3 10^3/uL (0.0-0.8); MONO % 6.4 % (0.0-5.0); NEUTROPHILS # 3.6 10^3/uL (1.5-8.5); NEUTROPHILS % 71.7 % (36.0-66.0); RED BLOOD COUNT 4.47 10^6/uL (4.30-6.10)
[2019-05-01 12:46] LABS: PERCENT SATURATION 17.6 % (19.7-50.0)
[2019-05-01 13:02] LABS: PLATELET COUNT, AUTOMATED 93 10^3/uL (150-450)
== END ==
LOC: M LAB REF 12:03
PROVIDERS: ATTEND Internal Medicine Medical Oncology
DX: D50.9 Iron deficiency anemia, unspecified (principal)

== ENCOUNTER → 2019-05-01 | Outpatient (REF) | payer MEDICARE ==
[2019-05-01 11:41] LABS: CHOLESTEROL RISK RATIO 4.291 (<5)
[2019-05-01 11:50] LABS: FOLATE 6.2 NG/ML
[2019-05-01 11:57] LABS: HEMOGLOBIN A1c 9.4 %
== END ==
LOC: M SFHCLERA 09:29
PROVIDERS: ATTEND Family Medicine
DX: E11.21 Type 2 diabetes mellitus with diabetic nephropathy (principal); D50.9 Iron deficiency anemia, unspecified
CPT/HCPCS: 80061; 82607; 82728; 82746; 83036; 83550; 85025; 85049; 85055; G0463

== ENCOUNTER → 2019-06-18 | Outpatient (CLI) | payer MEDICARE ==
[~2019-06-18] MED LIST changes: +OMEP-172 PO; -OMEP20CA4 PO; -SIMV40TA2 PO; +SIMV40TA20 PO
[2019-06-18 16:33] LABS: HEMOGLOBIN A1c 8.3 %
== END ==
LOC: M CARPUL 11:38
PROVIDERS: ATTEND Family Medicine
DX: R91.1 Solitary pulmonary nodule (principal); G90.512 Complex regional pain syndrome I of left upper limb; D50.9 Iron deficiency anemia, unspecified

== ENCOUNTER → 2019-06-22 | Outpatient (REF) | payer MEDICARE ==
[2019-06-22 16:37] LABS: INR 2.77; PROTHROMBIN TIME 29.1 SECONDS (11.8-14.0)
== END ==
LOC: M SFHCLERA 11:15
PROVIDERS: ATTEND Family Medicine
DX: Z79.01 Long term (current) use of anticoagulants (principal)
CPT/HCPCS: 85610; G0463

== ENCOUNTER → 2019-06-29 | Outpatient (CLI) | payer MEDICARE ==
--- NOTE | 2019-06-29 12:34 | REP ---
CHEST, TWO VIEWS: Two views of the chest are performed and compared to several prior studies dating back to 10/17/2017. There is mild bibasilar interstitial prominence which is stable. No new infiltrate is seen. Heart is not significantly enlarged. Mediastinal silhouette is unchanged. There are mild degenerative changes of the spine. IMPRESSION: No acute infiltrate. Electronically Signed by Cecil Gant MD 06/29/2019 04:52 P
== END ==
LOC: M LRY 11:55
PROVIDERS: ATTEND Family Medicine
DX: R05 Cough (principal)
CPT/HCPCS: 71046; 94640; G0463

== ENCOUNTER → 2019-07-20 | Outpatient (CLI) | payer MEDICARE ==
[~2019-07-20] MED LIST changes: -GLIM4TAB3 PO; +GLIM4TAB5 PO; -OMEP-172 PO; +OMEP1CAP73 PO
== END ==
LOC: M LRY 11:52
PROVIDERS: ATTEND Nurse Practitioner Family
DX: L40.0 Psoriasis vulgaris (principal); Z51.81 Encounter for therapeutic drug level monitoring; Z79.899 Other long term (current) drug therapy
CPT/HCPCS: 36415; 86480; G0463

== ENCOUNTER → 2019-08-09 | Outpatient (REF) | payer MEDICARE ==
[2019-08-09 12:32] LABS: BLOOD UREA NITROGEN 14 MG/DL (7-18); CALCIUM LEVEL 9.3 MG/DL (8.5-10.1); CARBON DIOXIDE LEVEL 26 MEQ/L (21-32); CHLORIDE LEVEL 101 MEQ/L (98-107); CREATININE FOR GFR 1.15 MG/DL (0.70-1.30); GLOMERULAR FILTRATION RATE > 60.0 (>56); GLUCOSE, FASTING 367 MG/DL (70-100); POTASSIUM SERUM 4.5 MEQ/L (3.5-5.1); SODIUM LEVEL 135 MEQ/L (136-145)
== END ==
LOC: M SFHCLERA 09:41
PROVIDERS: ATTEND Family Medicine
DX: I10 Essential (primary) hypertension (principal)

== ENCOUNTER → 2019-08-24 | Outpatient (REF) | payer MEDICARE ==
[2019-08-24 18:02] LABS: INR 2.7; PROTHROMBIN TIME 28.6 SECONDS (11.8-14.0)
== END ==
LOC: M SFHCLERA 16:05
PROVIDERS: ATTEND Family Medicine
DX: Z79.01 Long term (current) use of anticoagulants (principal)

== ENCOUNTER → 2019-09-10 | Outpatient (REF) | payer MEDICARE ==
[2019-09-10 13:34] LABS: HEMOGLOBIN A1c 8.7 %
== END ==
LOC: M SFHCLERA 08:19
PROVIDERS: ATTEND Family Medicine
DX: E11.21 Type 2 diabetes mellitus with diabetic nephropathy (principal)

== ENCOUNTER → 2019-10-16 | Outpatient (REF) | payer MEDICARE ==
[2019-10-16 11:22] LABS: BASO % 0.5 % (0.0-1.0); EOS # 0.1 10^3/uL (0.0-0.5); EOS % 2.2 % (0.0-3.0); HEMATOCRIT 41.7 % (42.0-52.0); HEMOGLOBIN 13.4 g/dl (13.5-17.5); LYMPH # 1.2 10^3/uL (1.5-5.0); LYMPH % 28.1 % (24.0-44.0); MEAN CORPUSCULAR HEMOGLOBIN 29.1 pg (27.0-33.0); MEAN CORPUSCULAR HGB CONC 32.1 g/dl (32.0-36.5); MEAN CORPUSCULAR VOLUME 90.7 fl (80.0-96.0); MONO # 0.3 10^3/uL (0.0-0.8); MONO % 7.3 % (0.0-5.0); NEUTROPHILS # 2.6 10^3/uL (1.5-8.5); NEUTROPHILS % 61.7 % (36.0-66.0); WHITE BLOOD COUNT 4.1 10^3/uL (4.0-10.0)
[2019-10-16 11:24] LABS: PLATELET COUNT, AUTOMATED 89 10^3/uL (150-450)
[2019-10-16 11:32] LABS: INR 3.53; PROTHROMBIN TIME 35.4 SECONDS (11.8-14.0)
== END ==
LOC: M SFHCLERA 10:07
PROVIDERS: ATTEND Family Medicine
DX: E11.21 Type 2 diabetes mellitus with diabetic nephropathy (principal); Z51.81 Encounter for therapeutic drug level monitoring; Z79.01 Long term (current) use of anticoagulants
CPT/HCPCS: 83036; 85025; 85049; 85055; 85610; G0463

== ENCOUNTER → 2019-11-29 | Outpatient (REF) | payer MEDICARE ==
[~2019-11-29] MED LIST changes: +ARTIDRO OP; +PRED20TA PO; +VALT1TAB PO
[2019-11-29 12:28] LABS: INR 3.09; PROTHROMBIN TIME 31.8 SECONDS (11.8-14.0)
== END ==
LOC: M PLALAB 11:19
PROVIDERS: ATTEND Family Medicine
DX: Z51.81 Encounter for therapeutic drug level monitoring (principal)

== ENCOUNTER 2019-12-04 12:28 | Emergency (ER) | payer MEDICARE ==
[~2019-12-04] VITALS: Ht 175.3 cm; Wt 116.4 kg
[~2019-12-04 12:28] MED LIST changes: -ARTIDRO OP; -PRED20TA PO; -VALT1TAB PO
[2019-12-04] MEDS ORDERED: FERR325T3 PO (12:55)
[2019-12-04 13:24] LABS: BASO % 0.4 % (0.0-1.0); EOS # 0.1 10^3/uL (0.0-0.5); EOS % 1.7 % (0.0-3.0); HEMATOCRIT 39.7 % (42.0-52.0); HEMOGLOBIN 12.7 g/dl (13.5-17.5); LYMPH # 1.1 10^3/uL (1.5-5.0); LYMPH % 20.9 % (24.0-44.0); MEAN CORPUSCULAR HEMOGLOBIN 29.4 pg (27.0-33.0); MEAN CORPUSCULAR VOLUME 91.9 fl (80.0-96.0); MONO # 0.4 10^3/uL (0.0-0.8); MONO % 7.4 % (0.0-5.0); NEUTROPHILS # 3.6 10^3/uL (1.5-8.5); NEUTROPHILS % 69.4 % (36.0-66.0); PLATELET COUNT, AUTOMATED 100 10^3/uL (150-450); RED BLOOD COUNT 4.32 10^6/uL (4.30-6.10); WHITE BLOOD COUNT 5.2 10^3/uL (4.0-10.0)
[2019-12-04 13:37] LABS: INR 2.52; PARTIAL THROMBOPLASTIN TIME 37.3 SECONDS (25.0-38.4)
[2019-12-04 13:57] LABS: CK-MB VALUE MASS < 1.0 NG/ML (<3.6); CPK CREATINE PHOSPHOKINASE 101 U/L (39-308); MB/CK RELATIVE INDEX 0.99 (< OR =4); TROPONIN I < 0.02 NG/ML (< 0.10)
--- NOTE | 2019-12-04 16:25 | REP ---
CT BRAIN WITHOUT CONTRAST: HISTORY: Rule out stroke. No comparison brain CT. CT FINDINGS: There is an old encephalomalacia pattern in the right anterior inferior temporal lobe consistent with an old infarction. There is an old infarct pattern in the basal ganglia on the right. There is old encephalomalacia in the right parietal lobe consistent with a prior infarction. There is no evidence of intracranial hemorrhage or acute infarction. Diffuse atrophy is seen. Vascular calcification is noted. Visualized paranasal sinuses are clear. No intraorbital abnormality is seen. IMPRESSION: Vascular calcification diffuse atrophy. Old infarcts in the distribution of the right middle cerebral artery territory involving right temporal lobe, right basal ganglia, and right parietal lobe. No acute infarct or hemorrhage seen. Electronically Signed by Max Montes De Oca MD 12/04/2019 06:00 P
[2019-12-04] MEDS ORDERED: VALT1TAB PO (16:41)
[2019-12-04] MEDS ORDERED: ARTIDRO OP (16:42)
[2019-12-04] MEDS ORDERED: PRED20TA PO (16:42)
--- NOTE | 2019-12-04 16:53 | REP ---
PORTABLE CHEST X-RAY: SINGLE VIEW. HISTORY: CVA. FINDINGS: Comparison study June 29, 2019. Today's exam demonstrates EKG electrodes. The lungs are well inflated and clear. The pleural angles are sharp. Heart is not enlarged. Pulmonary vasculature is not increased. IMPRESSION: No active disease. Electronically Signed by Max Montes De Oca MD 12/04/2019 06:01 P
[2019-12-04] MEDS: valACYclovir HCL 500 MG TAB PO ONE (17:35)
[2019-12-04] MEDS: predniSONE 20 MG TAB PO ONE (17:35)
[2019-12-04 17:42] VITALS: BP 132/62
--- NOTE | 2019-12-04 18:54 | ECGEPIP ---
[facility] - ED Test Date: 2019-12-04 Pat Name: EMELY RIVERA Department: Room: - Gender: Male Neonatal Intensive Care Nurse: GIANNI : 1960 Requested By: Kylah Smith Order Number: [id number] Reading MD: Reji Shelley Measurements Intervals [place] Rate: 73 P: 19 MD: 190 QRS: 45 QRSD: 94 T: 24 QT: 376 QTc: 417 Interpretive Statements SINUS RHYTHM NSTTW ABNORMALITIES NO PRIORS FOR COMPARISON Electronically Signed on 12-04-2019 18:54:39 EDT by Reji Shelley
--- NOTE | 2019-12-05 00:32 | REP ---
MRI BRAIN WITHOUT CONTRAST: HISTORY: Left facial palsy. Comparison head CT study is from earlier this date. TECHNIQUE: Axial and sagittal imaging planes are utilized for T1- and T2-weighted scans. Sequences include spin-echo, fast spin echo, FLAIR, and diffusion-weighted sequences. MRI FINDINGS: No bony calvarial lesion is seen. Craniocervical junction and upper cervical cord are normal in appearance. There is no MR evidence of paranasal sinus disease. No intraorbital abnormality is seen. There is generalized volume loss. There are areas of encephalomalacia in the right temporal lobe, the right parietal lobe, and in the region of the external capsule, basal ganglia on the right. These are consistent with old areas of infarction. There is a lacunar infarct, which also appears old, in the head of the caudate nucleus on the right. Mild small vessel changes are seen. Diffusion-weighted sequence shows no evidence of restricted diffusion to suggest an acute infarction. There is no evidence of intracranial hemorrhage. IMPRESSION: Several areas of old infarction in the right middle cerebral artery territory. Diffuse atrophy. No acute infarct is seen. No evidence of mass or hemorrhage. Electronically Signed by Max Montes De Oca MD 12/05/2019 08:18 A
[2019-12-05 17:06] LABS: Lyme Disease IgG/IgM Antibodie <0.91 ISR (0.00-0.90); Lyme Disease IgM Ab Quantitati <0.80 index (0.00-0.79)
== END 2019-12-04 17:44 | disposition home or self-care (01) ==
LOC: M ED 12:28
DX: G51.0 Bell's palsy (principal); E11.65 Type 2 diabetes mellitus with hyperglycemia; E78.9 Disorder of lipoprotein metabolism, unspecified; I10 Essential (primary) hypertension; L40.9 Psoriasis, unspecified; G47.33 Obstructive sleep apnea (adult) (pediatric); Z86.73 Personal history of transient ischemic attack (TIA), and cerebral infarction without residual deficits; Z88.8 Allergy status to other drugs, medicaments and biological substances; Z79.899 Other long term (current) drug therapy; Z79.4 Long term (current) use of insulin; Z79.01 Long term (current) use of anticoagulants

== ENCOUNTER → 2020-01-01 | Outpatient (REF) | payer MEDICARE ==
[~2020-01-01] MED LIST changes: +ARTIDRO OP; +PRED20TA PO; +VALT1TAB PO
[2020-01-01 16:46] LABS: INR 3.25; PROTHROMBIN TIME 33.1 SECONDS (11.8-14.0)
== END ==
LOC: M SFHCLERA 11:25
PROVIDERS: ATTEND Family Medicine
DX: Z79.01 Long term (current) use of anticoagulants (principal)

== ENCOUNTER → 2020-02-07 | Outpatient (REF) | payer MEDICARE ==
[2020-03-04 22:47] LABS: BASO % 0.4 % (0.0-1.0); EOS # 0.1 10^3/uL (0.0-0.5); EOS % 2.6 % (0.0-3.0); HEMATOCRIT 40.5 % (42.0-52.0); HEMOGLOBIN 12.8 g/dl (13.5-17.5); INR 3.16; LYMPH # 0.9 10^3/uL (1.5-5.0); LYMPH % 20.2 % (24.0-44.0); MEAN CORPUSCULAR HEMOGLOBIN 29.8 pg (27.0-33.0); MEAN CORPUSCULAR HGB CONC 31.6 g/dl (32.0-36.5); MEAN CORPUSCULAR VOLUME 94.2 fl (80.0-96.0); MONO # 0.4 10^3/uL (0.0-0.8); MONO % 9.6 % (0.0-5.0); NEUTROPHILS % 66.8 % (36.0-66.0); PLATELET COUNT, AUTOMATED 108 10^3/uL (150-450); PROTHROMBIN TIME 33.2 SECONDS (11.8-14.0); WHITE BLOOD COUNT 4.6 10^3/uL (4.0-10.0)
[2020-03-16 08:13] LABS: ALBUMIN 3.9 GM/DL (3.2-5.2); ALT/SGPT 77 U/L (12-78); BILIRUBIN,TOTAL 0.9 MG/DL (0.2-1.0); BLOOD UREA NITROGEN 16 MG/DL (7-18); CALCIUM LEVEL 8.8 MG/DL (8.5-10.1); CARBON DIOXIDE LEVEL 27 MEQ/L (21-32); CHLORIDE LEVEL 103 MEQ/L (98-107); CREATININE FOR GFR 1.22 MG/DL (0.70-1.30); GLOMERULAR FILTRATION RATE > 60.0 (>56); GLUCOSE, FASTING 253 MG/DL (70-100); POTASSIUM SERUM 4.2 MEQ/L (3.5-5.1); SODIUM LEVEL 136 MEQ/L (136-145); TOTAL PROTEIN 7.5 GM/DL (6.4-8.2)
== END ==
LOC: M SFHCLERA 10:14
PROVIDERS: ATTEND Family Medicine
DX: Z79.01 Long term (current) use of anticoagulants (principal); R21 Rash and other nonspecific skin eruption

== ENCOUNTER → 2020-02-25 | Outpatient (CLI) | payer MEDICARE | LOC: M LABSMTC 12:00 | PROVIDERS: ATTEND Family Medicine | DX: Z20.828 Contact with and (suspected) exposure to other viral communicable diseases (principal) | CPT/HCPCS: C9803; U0003 ==

== ENCOUNTER → 2020-02-29 | Outpatient (REF) | payer MEDICARE ==
[2020-02-29 19:26] LABS: INR 2.47; PROTHROMBIN TIME 27.3 SECONDS (11.8-14.0)
== END ==
LOC: M SFHCLERA 17:25
PROVIDERS: ATTEND Family Medicine
DX: Z79.01 Long term (current) use of anticoagulants (principal)

== ENCOUNTER → 2020-02-29 | Outpatient (REF) | payer MEDICARE ==
[2020-02-29 19:16] LABS: HEMATOCRIT 43.1 % (42.0-52.0); HEMOGLOBIN 13.7 g/dl (13.5-17.5); MEAN CORPUSCULAR HEMOGLOBIN 29.5 pg (27.0-33.0); MEAN CORPUSCULAR HGB CONC 31.8 g/dl (32.0-36.5); MEAN CORPUSCULAR VOLUME 92.9 fl (80.0-96.0); PLATELET COUNT, AUTOMATED 111 10^3/uL (150-450); RED BLOOD COUNT 4.64 10^6/uL (4.30-6.10); WHITE BLOOD COUNT 4.6 10^3/uL (4.0-10.0)
[2020-02-29 19:24] LABS: ALBUMIN 4.1 GM/DL (3.2-5.2); ALT/SGPT 70 U/L (12-78); BILIRUBIN,TOTAL 0.8 MG/DL (0.2-1.0); BLOOD UREA NITROGEN 17 MG/DL (7-18); CARBON DIOXIDE LEVEL 25 MEQ/L (21-32); CHLORIDE LEVEL 103 MEQ/L (98-107); CREATININE FOR GFR 1.17 MG/DL (0.70-1.30); GLOMERULAR FILTRATION RATE > 60.0 (>56); GLUCOSE, FASTING 192 MG/DL (70-100); POTASSIUM SERUM 4.3 MEQ/L (3.5-5.1); SODIUM LEVEL 137 MEQ/L (136-145); TOTAL PROTEIN 7.9 GM/DL (6.4-8.2)
== END ==
LOC: M LAB REF 17:27
PROVIDERS: ATTEND Nurse Practitioner
DX: L40.0 Psoriasis vulgaris (principal); Z51.81 Encounter for therapeutic drug level monitoring; Z79.899 Other long term (current) drug therapy

== ENCOUNTER → 2020-04-15 | Outpatient (CLI) | payer MEDICARE ==
[2020-04-15 14:03] LABS: CREATININE, URINE 14.3 MG/DL; MALB URINE SIEMENS 89.7 MG/L; MAU/CREAT RATIO 627.2 MCG/MG (0.0-30.0)
[2020-04-15 14:16] LABS: CHOLESTEROL RISK RATIO 4.206 (<5)
[2020-04-15 14:22] LABS: HEMOGLOBIN A1c 7.4 %
== END ==
LOC: M LAB 08:37
PROVIDERS: ATTEND Family Medicine
DX: E11.21 Type 2 diabetes mellitus with diabetic nephropathy (principal)

== ENCOUNTER → 2020-06-10 | Outpatient (CLI) | payer MEDICARE ==
[2020-06-10 10:35] LABS: INR 2.81; PROTHROMBIN TIME 30.2 SECONDS (12.5-14.3)
== END ==
LOC: M LAB 09:37
PROVIDERS: ATTEND Family Medicine
DX: Z79.899 Other long term (current) drug therapy (principal); Z79.01 Long term (current) use of anticoagulants

== ENCOUNTER → 2020-07-29 | Outpatient (REF) | payer MEDICARE | LOC: M SFHCLERA 11:10 | PROVIDERS: ATTEND Family Medicine | DX: R39.15 Urgency of urination (principal) | CPT/HCPCS: 81002; 87088; 87186; G0463 ==

== ENCOUNTER → 2020-07-31 | Outpatient (CLI) | payer MEDICARE ==
[2020-07-31 16:35] LABS: INR 4.58; PROTHROMBIN TIME 44.4 SECONDS (12.5-14.3)
[2020-07-31 16:50] LABS: BLOOD UREA NITROGEN 13 MG/DL (7-18); CALCIUM LEVEL 9.6 MG/DL (8.5-10.1); CARBON DIOXIDE LEVEL 28 MEQ/L (21-32); CHLORIDE LEVEL 104 MEQ/L (98-107); CREATININE FOR GFR 1.24 MG/DL (0.70-1.30); GLOMERULAR FILTRATION RATE > 60.0 (>56); GLUCOSE, FASTING 133 MG/DL (70-100); POTASSIUM SERUM 4.2 MEQ/L (3.5-5.1); SODIUM LEVEL 140 MEQ/L (136-145)
== END ==
LOC: M WUC 11:12
PROVIDERS: ATTEND Family Medicine
DX: R39.15 Urgency of urination (principal); Z79.01 Long term (current) use of anticoagulants
CPT/HCPCS: 36415; 80048; 85610; G0103

== ENCOUNTER → 2020-08-25 | Outpatient (REF) | payer OTHER ==
[2020-08-25 18:36] LABS: BLOOD UREA NITROGEN 11 MG/DL (7-18); CALCIUM LEVEL 9.3 MG/DL (8.5-10.1); CARBON DIOXIDE LEVEL 25 MEQ/L (21-32); CHLORIDE LEVEL 106 MEQ/L (98-107); CREATININE FOR GFR 0.95 MG/DL (0.70-1.30); GLOMERULAR FILTRATION RATE > 60.0 (>56); GLUCOSE, FASTING 82 MG/DL (70-100); POTASSIUM SERUM 4.2 MEQ/L (3.5-5.1); SODIUM LEVEL 140 MEQ/L (136-145)
[2020-08-25 18:45] LABS: BASO % 0.5 % (0.0-1.0); EOS # 0.1 10^3/uL (0.0-0.5); EOS % 2.2 % (0.0-3.0); HEMATOCRIT 45.4 % (42.0-52.0); LYMPH # 1.1 10^3/uL (1.5-5.0); LYMPH % 17.9 % (24.0-44.0); MEAN CORPUSCULAR HEMOGLOBIN 27.7 pg (27.0-33.0); MEAN CORPUSCULAR HGB CONC 30.8 g/dl (32.0-36.5); MEAN CORPUSCULAR VOLUME 89.9 fl (80.0-96.0); MONO # 0.5 10^3/uL (0.0-0.8); MONO % 8.2 % (0.0-8.0); NEUTROPHILS # 4.5 10^3/uL (1.5-8.5); NEUTROPHILS % 70.7 % (36.0-66.0); PLATELET COUNT, AUTOMATED 137 10^3/uL (150-450); RED BLOOD COUNT 5.05 10^6/uL (4.30-6.10); WHITE BLOOD COUNT 6.3 10^3/uL (4.0-10.0)
== END ==
LOC: M LABWUC 15:50
PROVIDERS: ATTEND Neurological Surgery
DX: Z01.818 Encounter for other preprocedural examination (principal); G90.512 Complex regional pain syndrome I of left upper limb

== ENCOUNTER → 2020-08-27 | Outpatient (CLI) | payer OTHER | LOC: M LABSMTC 10:51 | PROVIDERS: ATTEND Neurological Surgery | DX: Z20.822 Contact with and (suspected) exposure to COVID-19 (principal) ==

== ENCOUNTER → 2020-09-03 | Outpatient (CLI) | payer OTHER | LOC: M LABSMTC 12:03 | PROVIDERS: ATTEND Neurological Surgery | DX: Z01.818 Encounter for other preprocedural examination (principal); M79.606 Pain in leg, unspecified ==

== ENCOUNTER → 2020-09-09 | Outpatient (CLI) | payer OTHER | LOC: M LABSMTC 11:49 | PROVIDERS: ATTEND Neurological Surgery | DX: Z11.52 Encounter for screening for COVID-19 (principal) ==

== ENCOUNTER → 2020-10-09 | Outpatient (CLI) | payer MEDICARE ==
[2020-10-09 13:42] LABS: INR 3.32; PROTHROMBIN TIME 34.5 SECONDS (12.5-14.3)
== END ==
LOC: M WUC 10:45
PROVIDERS: ATTEND Family Medicine
DX: Z79.01 Long term (current) use of anticoagulants (principal)

== ENCOUNTER → 2020-10-09 | Outpatient (CLI) | payer MEDICARE ==
[2020-10-09 14:43] LABS: HEPATITIS B SURFACE ANTIBODY NEGATIVE (POSITIVE); HEPATITIS B SURFACE ANTIGEN NEGATIVE (NEGATIVE); HIV 1&2 SCREEN CENTAUR NEGATIVE (NEGATIVE)
[2020-10-16 00:06] LABS: HEPATITIS B CORE ANTIBODY IGG Negative (Negative)
== END ==
LOC: M WUC 10:41
PROVIDERS: ATTEND Dermatology
DX: L40.9 Psoriasis, unspecified (principal); Z79.01 Long term (current) use of anticoagulants

== ENCOUNTER → 2020-10-20 | Outpatient (CLI) | payer MEDICARE ==
[2020-10-20 19:57] LABS: INR 3.01; PROTHROMBIN TIME 31.9 SECONDS (12.5-14.3)
== END ==
LOC: M WUC 15:28
PROVIDERS: ATTEND Family Medicine
DX: Z51.81 Encounter for therapeutic drug level monitoring (principal); Z79.01 Long term (current) use of anticoagulants

== ENCOUNTER → 2020-10-30 | Outpatient (CLI) | payer MEDICARE ==
[2020-10-30 16:44] LABS: INR 2.73; PROTHROMBIN TIME 29.6 SECONDS (12.5-14.3)
== END ==
LOC: M WUC 13:15
PROVIDERS: ATTEND Family Medicine
DX: Z51.81 Encounter for therapeutic drug level monitoring (principal); Z79.01 Long term (current) use of anticoagulants

== ENCOUNTER → 2020-12-02 | Outpatient (CLI) | payer MEDICARE ==
[~2020-12-02] MED LIST changes: +GABA-283 PO; -GABA-845 PO
[2020-12-02 16:46] LABS: BASO % 0.4 % (0.0-1.0); EOS # 0.1 10^3/uL (0.0-0.5); EOS % 1.2 % (0.0-3.0); HEMATOCRIT 44.2 % (42.0-52.0); HEMOGLOBIN 14.2 g/dl (13.5-17.5); LYMPH # 1.1 10^3/uL (1.5-5.0); LYMPH % 15.4 % (24.0-44.0); MEAN CORPUSCULAR HEMOGLOBIN 28.6 pg (27.0-33.0); MEAN CORPUSCULAR HGB CONC 32.1 g/dl (32.0-36.5); MEAN CORPUSCULAR VOLUME 89.1 fl (80.0-96.0); MONO # 0.6 10^3/uL (0.0-0.8); MONO % 7.8 % (2.0-8.0); NEUTROPHILS # 5.5 10^3/uL (1.5-8.5); NEUTROPHILS % 74.8 % (36.0-66.0); PLATELET COUNT, AUTOMATED 131 10^3/uL (150-450); RED BLOOD COUNT 4.96 10^6/uL (4.30-6.10); WHITE BLOOD COUNT 7.3 10^3/uL (4.0-10.0)
[2020-12-02 16:55] LABS: INR 3.56; PROTHROMBIN TIME 36.4 SECONDS (12.5-14.3)
[2020-12-02 17:17] LABS: ALBUMIN 3.8 GM/DL (3.2-5.2); ALT/SGPT 41 U/L (12-78); BILIRUBIN,TOTAL 0.8 MG/DL (0.2-1.0); BLOOD UREA NITROGEN 10 MG/DL (7-18); CALCIUM LEVEL 9.7 MG/DL (8.5-10.1); CARBON DIOXIDE LEVEL 26 MEQ/L (21-32); CHLORIDE LEVEL 107 MEQ/L (98-107); CREATININE FOR GFR 1.15 MG/DL (0.70-1.30); GLOMERULAR FILTRATION RATE > 60.0 (>56); GLUCOSE, FASTING 142 MG/DL (70-100); POTASSIUM SERUM 4.4 MEQ/L (3.5-5.1); SODIUM LEVEL 141 MEQ/L (136-145); TOTAL PROTEIN 7.6 GM/DL (6.4-8.2)
[2020-12-02 17:46] LABS: HEMOGLOBIN A1c 5.6 %
== END ==
LOC: M WUC 13:45
PROVIDERS: ATTEND Family Medicine
DX: E11.21 Type 2 diabetes mellitus with diabetic nephropathy (principal); Z79.01 Long term (current) use of anticoagulants

== ENCOUNTER → 2020-12-24 | Outpatient (CLI) | payer MEDICARE ==
[2020-12-24 19:33] LABS: INR 1.36; PROTHROMBIN TIME 17.1 SECONDS (12.5-14.3)
== END ==
LOC: M LAB 18:46
PROVIDERS: ATTEND Family Medicine
DX: Z51.81 Encounter for therapeutic drug level monitoring (principal); Z79.01 Long term (current) use of anticoagulants

== ENCOUNTER → 2021-02-02 | Outpatient (REF) | payer MEDICARE ==
[2021-02-02 16:37] LABS: INR 2.79; PROTHROMBIN TIME 30.1 SECONDS (12.5-14.3)
== END ==
LOC: M LAB REF 15:40
PROVIDERS: ATTEND Dermatology
DX: Z79.01 Long term (current) use of anticoagulants (principal)

== ENCOUNTER → 2021-02-23 | Outpatient (CLI) | payer MEDICARE ==
[2021-02-23 16:51] LABS: INR 2.35; PROTHROMBIN TIME 26.1 SECONDS (12.7-14.5)
== END ==
LOC: M WUC 12:10
PROVIDERS: ATTEND Student in an Organized Health Care Education/Training Program
DX: Z51.81 Encounter for therapeutic drug level monitoring (principal); Z79.01 Long term (current) use of anticoagulants

== ENCOUNTER → 2021-02-24 | Outpatient (REF) | payer MEDICARE | LOC: M LAB REF 20:07 | PROVIDERS: ATTEND Student in an Organized Health Care Education/Training Program | DX: J06.9 Acute upper respiratory infection, unspecified (principal) | CPT/HCPCS: 87426; G0463; U0003 ==

== ENCOUNTER → 2021-04-15 | Outpatient (CLI) | payer MEDICARE ==
[2021-04-15 12:58] LABS: INR 3.14; PROTHROMBIN TIME 32.6 SECONDS (12.7-14.5)
== END ==
LOC: M WUC 09:29
PROVIDERS: ATTEND Student in an Organized Health Care Education/Training Program
DX: Z51.81 Encounter for therapeutic drug level monitoring (principal)

== ENCOUNTER → 2021-05-01 | Outpatient (CLI) | payer MEDICARE ==
[2021-05-01 12:34] LABS: INR 3.55; PROTHROMBIN TIME 35.8 SECONDS (12.7-14.5)
== END ==
LOC: M WUC 10:56
PROVIDERS: ATTEND Student in an Organized Health Care Education/Training Program
DX: Z51.81 Encounter for therapeutic drug level monitoring (principal); Z79.01 Long term (current) use of anticoagulants

== ENCOUNTER → 2021-05-21 | Outpatient (CLI) | payer MEDICARE ==
[2021-05-21 13:13] LABS: INR 1.75; PROTHROMBIN TIME 20.9 SECONDS (12.7-14.5)
== END ==
LOC: M WUC 10:12
PROVIDERS: ATTEND Student in an Organized Health Care Education/Training Program
DX: Z51.81 Encounter for therapeutic drug level monitoring (principal); Z79.01 Long term (current) use of anticoagulants

== ENCOUNTER → 2021-05-27 | Outpatient (CLI) | payer MEDICARE ==
[2021-05-27 16:29] LABS: INR 2.24; PROTHROMBIN TIME 25.2 SECONDS (12.7-14.5)
== END ==
LOC: M WUC 11:00
PROVIDERS: ATTEND Student in an Organized Health Care Education/Training Program
DX: Z51.81 Encounter for therapeutic drug level monitoring (principal); Z79.01 Long term (current) use of anticoagulants

== ENCOUNTER → 2021-06-12 | Outpatient (CLI) | payer MEDICARE ==
[2021-06-12 16:09] LABS: INR 2.72; PROTHROMBIN TIME 29.2 SECONDS (12.7-14.5)
== END ==
LOC: M WUC 11:28
PROVIDERS: ATTEND Student in an Organized Health Care Education/Training Program
DX: Z51.81 Encounter for therapeutic drug level monitoring (principal); Z79.01 Long term (current) use of anticoagulants

== ENCOUNTER → 2021-07-08 | Outpatient (CLI) | payer MEDICARE ==
[2021-07-08 15:36] LABS: INR 2.48; PROTHROMBIN TIME 27.2 SECONDS (12.7-14.5)
== END ==
LOC: M WUC 13:07
PROVIDERS: ATTEND Student in an Organized Health Care Education/Training Program
DX: Z79.01 Long term (current) use of anticoagulants (principal)

== ENCOUNTER → 2021-09-07 | Outpatient (CLI) | payer MEDICARE ==
[~2021-09-07] MED LIST changes: +LOSA100T45 PO; -LOSA100T50 PO
[2021-09-07 17:40] LABS: INR 2.4; PROTHROMBIN TIME 26.5 SECONDS (12.7-14.5)
== END ==
LOC: M WUC 13:16
PROVIDERS: ATTEND Student in an Organized Health Care Education/Training Program
DX: Z51.81 Encounter for therapeutic drug level monitoring (principal); Z79.01 Long term (current) use of anticoagulants

== ENCOUNTER → 2021-10-02 | Outpatient (CLI) | payer MEDICARE ==
[2021-10-02 20:19] LABS: BASO % 0.4 % (0.0-1.0); EOS # 0.1 10^3/uL (0.0-0.5); EOS % 1.5 % (0.0-3.0); HEMATOCRIT 44.5 % (42.0-52.0); HEMOGLOBIN 14.1 g/dl (13.5-17.5); LYMPH # 1.1 10^3/uL (1.5-5.0); LYMPH % 15.5 % (24.0-44.0); MEAN CORPUSCULAR HGB CONC 31.7 g/dl (32.0-36.5); MEAN CORPUSCULAR VOLUME 91.4 fl (80.0-96.0); MONO # 0.6 10^3/uL (0.0-0.8); MONO % 8.3 % (2.0-8.0); NEUTROPHILS % 73.9 % (36.0-66.0); PLATELET COUNT, AUTOMATED 109 10^3/uL (150-450); RED BLOOD COUNT 4.87 10^6/uL (4.30-6.10); WHITE BLOOD COUNT 6.8 10^3/uL (4.0-10.0)
[2021-10-02 20:29] LABS: INR 1.76; PROTHROMBIN TIME 20.9 SECONDS (12.7-14.5)
[2021-10-02 20:42] LABS: ALBUMIN 4.2 GM/DL (3.2-5.2); ALT/SGPT 42 U/L (12-78); BILIRUBIN,TOTAL 0.8 MG/DL (0.2-1.0); BLOOD UREA NITROGEN 11 MG/DL (7-18); CALCIUM LEVEL 9.8 MG/DL (8.8-10.2); CARBON DIOXIDE LEVEL 28 MEQ/L (21-32); CHLORIDE LEVEL 106 MEQ/L (98-107); GLOMERULAR FILTRATION RATE > 60.0 (>49); GLUCOSE, FASTING 221 MG/DL (70-100); POTASSIUM SERUM 4.5 MEQ/L (3.5-5.1); SODIUM LEVEL 138 MEQ/L (136-145); TOTAL PROTEIN 7.9 GM/DL (6.4-8.2)
== END ==
LOC: M WUC 15:34
PROVIDERS: ATTEND Family Medicine
DX: Z79.01 Long term (current) use of anticoagulants (principal); K52.9 Noninfective gastroenteritis and colitis, unspecified

== ENCOUNTER 2021-10-16 11:42 | Inpatient (IN) | payer MEDICARE ==
[2021-10-16] VITALS (8 sets, daily range): BP systolic 137–184; BP diastolic 59–85
[~2021-10-16] VITALS: Ht 175.3 cm; Wt 114.6 kg
[2021-10-16] MEDS ORDERED: dexameTHASONE 4 MG/ML 1ML VIAL (J1100 PER 1MG) IV ONE (12:20)
[2021-10-16 12:34] LABS: BASO % 0.2 % (0.0-1.0); HEMATOCRIT 39.9 % (42.0-52.0); HEMOGLOBIN 13.3 g/dl (13.5-17.5); LYMPH # 0.6 10^3/uL (1.5-5.0); LYMPH % 6.9 % (24.0-44.0); MEAN CORPUSCULAR HEMOGLOBIN 29.9 pg (27.0-33.0); MEAN CORPUSCULAR HGB CONC 33.3 g/dl (32.0-36.5); MEAN CORPUSCULAR VOLUME 89.7 fl (80.0-96.0); MONO # 0.6 10^3/uL (0.0-0.8); MONO % 6.1 % (2.0-8.0); NEUTROPHILS # 7.9 10^3/uL (1.5-8.5); NEUTROPHILS % 86.1 % (36.0-66.0); RED BLOOD COUNT 4.45 10^6/uL (4.30-6.10); WHITE BLOOD COUNT 9.2 10^3/uL (4.0-10.0)
[2021-10-16 12:38] LABS: ABG BASE EXCESS -2.9 (-2.0-2.0); ABG O2 SATURATION 98.4 % (95.0-99.0); ABG PARTIAL PRESSURE CO2 50.4 mmHg (35.0-45.0); ABG STANDARD HCO3 22.1 MEQ/L (22.0-26.0); ABG TOTAL CO2 25.6 MEQ/L (23.0-31.0); ABG pH (ARTERIAL) 7.296 UNITS (7.350-7.450)
[2021-10-16 12:43] LABS: INR 2.54; PROTHROMBIN TIME 27.7 SECONDS (12.7-14.5)
[2021-10-16 13:01] LABS: PLATELET COUNT, AUTOMATED 91 10^3/uL (150-450)
[2021-10-16] MEDS ORDERED: LevoFLOXacin IV 750 MG in IV 1 EA IV ONE (13:05)
[2021-10-16] MEDS ORDERED: NS 3,410 ML in IV 1 EA IV ONE (13:10)
[2021-10-16 13:14] LABS: ALBUMIN 3.4 GM/DL (3.2-5.2); ALT/SGPT 69 U/L (12-78); BILIRUBIN,DIRECT 0.3 MG/DL (0.0-0.2); BILIRUBIN,TOTAL 0.7 MG/DL (0.2-1.0); BLOOD UREA NITROGEN 26 MG/DL (7-18); CALCIUM LEVEL 8.6 MG/DL (8.8-10.2); CARBON DIOXIDE LEVEL 24 MEQ/L (21-32); CHLORIDE LEVEL 94 MEQ/L (98-107); CREATININE FOR GFR 1.14 MG/DL (0.70-1.30); GLOMERULAR FILTRATION RATE > 60.0 (>49); GLUCOSE, FASTING 188 MG/DL (70-100); NT-PRO BNP 3820 PG/ML (<125); POTASSIUM SERUM 4.2 MEQ/L (3.5-5.1); SODIUM LEVEL 130 MEQ/L (136-145); THYROID STIMULATING HORMONE 0.561 uIU/ML (0.358-3.740); TOTAL PROTEIN 7.3 GM/DL (6.4-8.2)
[2021-10-16] MEDS ORDERED: DEXTROSE 50% 50 ML SYRINGE IV PRN (16:00)
[2021-10-16] MEDS ORDERED: GLUCOSE 4GM CHEW TABLET PO PRN (16:00)
[2021-10-16] MEDS ORDERED: GLUCAGON INJ 1MG VIAL SC PRN (16:00)
[2021-10-16] MEDS ORDERED: LEVALBUTEROL 1.25 MG/0.5 ML CONCENTRATE NEB INH PRN (16:00)
[2021-10-16 16:25] LABS: ABG BASE EXCESS 0.2 (-2.0-2.0); ABG HCO3 26.2 MEQ/L (22.0-26.0); ABG PARTIAL PRESSURE CO2 47.8 mmHg (35.0-45.0); ABG PARTIAL PRESSURE O2 110.3 mmHg (75.0-100.0); ABG STANDARD HCO3 24.7 MEQ/L (22.0-26.0); ABG TOTAL CO2 27.7 MEQ/L (23.0-31.0); ABG pH (ARTERIAL) 7.357 UNITS (7.350-7.450)
[2021-10-16] MEDS: NS 1,000 ML IV SCH (17:24)
[2021-10-16] MEDS: methylPREDNISolone 125MG 2ML VIAL IV SCH (17:24)
[2021-10-16] MEDS: HumaLOG INSULIN (NovoLOG) PER UNIT SC SCH ×2 (17:24→20:26)
[2021-10-16] MEDS ORDERED: WARF4TAB52 PO (17:41)
[2021-10-16] MEDS ORDERED: SPIR-10 PO (17:41)
[2021-10-16] MEDS ORDERED: AMLO1TAB24 PO (17:41)
[2021-10-16] MEDS ORDERED: WARF-20 PO (17:41)
[2021-10-16] MEDS ORDERED: HYDR-4517 PO (17:41)
[2021-10-16] MEDS ORDERED: DIFI200T PO (17:41)
[2021-10-16 17:42] LABS: CK-MB VALUE MASS 7.8 NG/ML (<3.6); MB/CK RELATIVE INDEX 1.01 (< OR =4)
[2021-10-16] MEDS ORDERED: TOUJ300I2 SC (17:42)
[2021-10-16] MEDS ORDERED: HOME MED LIST COMPLETE! XX SCH (17:45)
[2021-10-16] MEDS ORDERED: OSELTAMIVIR PHOSPHATE 75 MG CAP (TAMIFLU) PO ONE (18:00)
[2021-10-16] MEDS: LEVALBUTEROL 1.25 MG/0.5 ML CONCENTRATE NEB INH SCH (19:58)
[2021-10-16] MEDS: GABAPENTIN 400MG CAP PO SCH (20:44)
[2021-10-16] MEDS: SIMVASTATIN 40 MG TAB PO SCH (20:44)
[2021-10-16] MEDS: NORCO, ANEXSIA 5/325MG TABLET (HYDROcodone/ACETAMINOPHEN) PO PRN (20:45)
[2021-10-16] MEDS: cefTRIAXone SOD 1 GM in D5W MINI-BAG PLUS 50 ML IV SCH (20:45)
[2021-10-16] MEDS: WARFARIN SOD 4MG TAB PO SCH (21:04)
[2021-10-16] MEDS: AZITHROMYCIN INJ 500 MG, VIAL MATE ADAPTER 1 EACH in NS 250 ML IV SCH (21:46)
[2021-10-17] VITALS (12 sets, daily range): BP systolic 126–190; BP diastolic 61–86
[2021-10-17] MEDS: methylPREDNISolone 125MG 2ML VIAL IV SCH ×3 (00:07→16:18)
[2021-10-17] MEDS: LEVALBUTEROL 1.25 MG/0.5 ML CONCENTRATE NEB INH SCH ×4 (01:13→19:54)
[2021-10-17] MEDS: NS 1,000 ML IV SCH (02:25)
[2021-10-17 05:34] LABS: HEMATOCRIT 36.9 % (42.0-52.0); MEAN CORPUSCULAR HGB CONC 32.5 g/dl (32.0-36.5); MEAN CORPUSCULAR VOLUME 89.1 fl (80.0-96.0); RED BLOOD COUNT 4.14 10^6/uL (4.30-6.10); WHITE BLOOD COUNT 5.5 10^3/uL (4.0-10.0)
[2021-10-17 05:39] LABS: PLATELET COUNT, AUTOMATED 75 10^3/uL (150-450)
[2021-10-17 05:48] LABS: INR 2.7
[2021-10-17 05:49] LABS: PARTIAL THROMBOPLASTIN TIME 59.4 SECONDS (25.9-37.0)
[2021-10-17 05:53] LABS: ALBUMIN 2.9 GM/DL (3.2-5.2); ALT/SGPT 66 U/L (12-78); BILIRUBIN,TOTAL 0.6 MG/DL (0.2-1.0); BLOOD UREA NITROGEN 25 MG/DL (7-18); CALCIUM LEVEL 8.2 MG/DL (8.8-10.2); CARBON DIOXIDE LEVEL 30 MEQ/L (21-32); CHLORIDE LEVEL 98 MEQ/L (98-107); CREATININE FOR GFR 0.86 MG/DL (0.70-1.30); GLOMERULAR FILTRATION RATE > 60.0 (>49); GLUCOSE, FASTING 239 MG/DL (70-100); POTASSIUM SERUM 4.8 MEQ/L (3.5-5.1); SODIUM LEVEL 133 MEQ/L (136-145); TOTAL PROTEIN 7.1 GM/DL (6.4-8.2)
[2021-10-17] MEDS: NORCO, ANEXSIA 5/325MG TABLET (HYDROcodone/ACETAMINOPHEN) PO PRN (06:41)
[2021-10-17] MEDS: HumaLOG INSULIN (NovoLOG) PER UNIT SC SCH ×4 (07:55→21:00)
[2021-10-17] MEDS: OMEPRAZOLE 20MG CAP PO SCH (08:16)
[2021-10-17] MEDS: GABAPENTIN 400MG CAP PO SCH ×3 (08:16→21:45)
[2021-10-17] MEDS: LOSARTAN 50MG TABLET PO SCH (08:17)
[2021-10-17] MEDS: SPIRONOLACTONE 25 MG TAB PO SCH (08:17)
[2021-10-17] MEDS: amLODIPine 5 MG TAB PO SCH (08:18)
[2021-10-17] MEDS: METOPROLOL SUCC (TopROL XL) 100MG *XL* TAB PO SCH (08:18)
[2021-10-17] MEDS: OSELTAMIVIR PHOSPHATE 75 MG CAP (TAMIFLU) PO SCH ×2 (08:18→21:45)
[2021-10-17] MEDS: FERROUS SULFATE 325MG TAB PO SCH (08:18)
[2021-10-17] MEDS: FIDAXOMICIN 200 MG TAB (DIFICID) PO SCH ×2 (08:22→21:46)
[2021-10-17] MEDS ORDERED: LEVEMIR (INSULIN DETEMIR) 1 UNITS/0.01ML SC SCH (09:00)
[2021-10-17] MEDS: FUROSEMIDE 40MG/4ML VIAL (J1940) IV SCH ×2 (12:26→17:33)
[2021-10-17] MEDS: WARFARIN SOD 4MG TAB PO SCH (16:18)
[2021-10-17] MEDS: cefTRIAXone SOD 1 GM in D5W MINI-BAG PLUS 50 ML IV SCH (21:42)
[2021-10-17] MEDS: LEVEMIR (INSULIN DETEMIR) 1 UNITS/0.01ML SC SCH (21:44)
[2021-10-17] MEDS: AZITHROMYCIN INJ 500 MG, VIAL MATE ADAPTER 1 EACH in NS 250 ML IV SCH (21:44)
[2021-10-17] MEDS: guaiFENesin ER 600 MG TAB PO SCH (21:45)
[2021-10-17] MEDS: SIMVASTATIN 40 MG TAB PO SCH (21:45)
[2021-10-18] VITALS (23 sets, daily range): BP systolic 139–186; BP diastolic 62–84; O2SAT 96
[2021-10-18] MEDS: methylPREDNISolone 125MG 2ML VIAL IV SCH ×3 (00:24→16:55)
[2021-10-18] MEDS: LEVALBUTEROL 1.25 MG/0.5 ML CONCENTRATE NEB INH SCH ×4 (01:02→20:02)
[2021-10-18 05:03] LABS: HEMATOCRIT 38.1 % (42.0-52.0); HEMOGLOBIN 12.3 g/dl (13.5-17.5); MEAN CORPUSCULAR HEMOGLOBIN 28.7 pg (27.0-33.0); MEAN CORPUSCULAR HGB CONC 32.3 g/dl (32.0-36.5); RED BLOOD COUNT 4.28 10^6/uL (4.30-6.10); WHITE BLOOD COUNT 5.9 10^3/uL (4.0-10.0)
[2021-10-18 05:05] LABS: PLATELET COUNT, AUTOMATED 95 10^3/uL (150-450)
[2021-10-18 05:13] LABS: INR 3.58
[2021-10-18 05:14] LABS: PARTIAL THROMBOPLASTIN TIME 54.7 SECONDS (25.9-37.0)
[2021-10-18 05:24] LABS: ALT/SGPT 63 U/L (12-78); BILIRUBIN,TOTAL 0.7 MG/DL (0.2-1.0); BLOOD UREA NITROGEN 33 MG/DL (7-18); CALCIUM LEVEL 8.4 MG/DL (8.8-10.2); CARBON DIOXIDE LEVEL 33 MEQ/L (21-32); CHLORIDE LEVEL 98 MEQ/L (98-107); GLOMERULAR FILTRATION RATE > 60.0 (>49); GLUCOSE, FASTING 179 MG/DL (70-100); POTASSIUM SERUM 4.3 MEQ/L (3.5-5.1); SODIUM LEVEL 137 MEQ/L (136-145); TOTAL PROTEIN 7.4 GM/DL (6.4-8.2)
[2021-10-18] MEDS: FUROSEMIDE 40MG/4ML VIAL (J1940) IV SCH ×3 (05:55→20:26)
[2021-10-18] MEDS ORDERED: hydrALAZINE 20MG/ML 1ML VIAL (J0360 PER 20MG) IV PRN (07:40)
[2021-10-18] MEDS: HumaLOG INSULIN (NovoLOG) PER UNIT SC SCH ×4 (08:14→21:18)
[2021-10-18] MEDS: OMEPRAZOLE 20MG CAP PO SCH (08:15)
[2021-10-18] MEDS: LOSARTAN 50MG TABLET PO SCH (08:15)
[2021-10-18] MEDS: LEVEMIR (INSULIN DETEMIR) 1 UNITS/0.01ML SC SCH ×2 (08:15→20:28)
[2021-10-18] MEDS: OSELTAMIVIR PHOSPHATE 75 MG CAP (TAMIFLU) PO SCH ×2 (08:15→20:27)
[2021-10-18] MEDS: FERROUS SULFATE 325MG TAB PO SCH (08:16)
[2021-10-18] MEDS: amLODIPine 5 MG TAB PO SCH (08:16)
[2021-10-18] MEDS: guaiFENesin ER 600 MG TAB PO SCH ×2 (08:16→20:27)
[2021-10-18] MEDS: GABAPENTIN 400MG CAP PO SCH ×3 (08:16→20:27)
[2021-10-18] MEDS: FIDAXOMICIN 200 MG TAB (DIFICID) PO SCH ×2 (08:17→20:25)
[2021-10-18] MEDS: SPIRONOLACTONE 25 MG TAB PO SCH (08:17)
[2021-10-18] MEDS: METOPROLOL SUCC (TopROL XL) 100MG *XL* TAB PO SCH (08:17)
[2021-10-18] MEDS: LACTOBACILLUS ACIDOPHILUS CAP (BACID) PO SCH ×3 (11:12→18:04)
[2021-10-18] MEDS ORDERED: WARFARIN SOD 1MG TAB PO SCH (17:00)
[2021-10-18 18:01] LABS: INR 2.72; PROTHROMBIN TIME 29.2 SECONDS (12.7-14.5)
[2021-10-18] MEDS: SIMVASTATIN 40 MG TAB PO SCH (20:27)
[2021-10-18] MEDS: cefTRIAXone SOD 1 GM in D5W MINI-BAG PLUS 50 ML IV SCH (20:28)
[2021-10-18] MEDS: AZITHROMYCIN INJ 500 MG, VIAL MATE ADAPTER 1 EACH in NS 250 ML IV SCH (21:18)
[2021-10-19] VITALS (7 sets, daily range): BP systolic 121–148; BP diastolic 60–69
[2021-10-19] MEDS: methylPREDNISolone 125MG 2ML VIAL IV SCH ×3 (00:24→16:19)
[2021-10-19] MEDS: LEVALBUTEROL 1.25 MG/0.5 ML CONCENTRATE NEB INH SCH ×4 (01:39→20:25)
[2021-10-19] MEDS: FUROSEMIDE 40MG/4ML VIAL (J1940) IV SCH ×3 (04:34→21:37)
[2021-10-19 05:26] LABS: HEMATOCRIT 37.8 % (42.0-52.0); HEMOGLOBIN 12.3 g/dl (13.5-17.5); MEAN CORPUSCULAR HEMOGLOBIN 28.9 pg (27.0-33.0); MEAN CORPUSCULAR HGB CONC 32.5 g/dl (32.0-36.5); MEAN CORPUSCULAR VOLUME 88.7 fl (80.0-96.0); RED BLOOD COUNT 4.26 10^6/uL (4.30-6.10); WHITE BLOOD COUNT 3.8 10^3/uL (4.0-10.0)
[2021-10-19 05:28] LABS: PLATELET COUNT, AUTOMATED 99 10^3/uL (150-450)
[2021-10-19 05:36] LABS: INR 3.08; PARTIAL THROMBOPLASTIN TIME 39.9 SECONDS (25.9-37.0); PROTHROMBIN TIME 32.1 SECONDS (12.7-14.5)
[2021-10-19 05:46] LABS: ALBUMIN 3.1 GM/DL (3.2-5.2); ALT/SGPT 68 U/L (12-78); BILIRUBIN,TOTAL 0.8 MG/DL (0.2-1.0); BLOOD UREA NITROGEN 29 MG/DL (7-18); CALCIUM LEVEL 8.6 MG/DL (8.8-10.2); CARBON DIOXIDE LEVEL 35 MEQ/L (21-32); CHLORIDE LEVEL 99 MEQ/L (98-107); CREATININE FOR GFR 1.11 MG/DL (0.70-1.30); GLOMERULAR FILTRATION RATE > 60.0 (>49); GLUCOSE, FASTING 197 MG/DL (70-100); POTASSIUM SERUM 3.5 MEQ/L (3.5-5.1); SODIUM LEVEL 140 MEQ/L (136-145); TOTAL PROTEIN 7.6 GM/DL (6.4-8.2)
[2021-10-19] MEDS ORDERED: POTASSIUM CHLORIDE 10MEQ SR TABLET PO ONE (07:45)
[2021-10-19] MEDS: HumaLOG INSULIN (NovoLOG) PER UNIT SC SCH ×4 (08:13→21:00)
[2021-10-19] MEDS: LACTOBACILLUS ACIDOPHILUS CAP (BACID) PO SCH ×2 (08:14→17:43)
[2021-10-19] MEDS: SPIRONOLACTONE 25 MG TAB PO SCH (08:14)
[2021-10-19] MEDS: LOSARTAN 50MG TABLET PO SCH (08:15)
[2021-10-19] MEDS: FERROUS SULFATE 325MG TAB PO SCH (08:16)
[2021-10-19] MEDS: FIDAXOMICIN 200 MG TAB (DIFICID) PO SCH ×2 (08:16→21:35)
[2021-10-19] MEDS: guaiFENesin ER 600 MG TAB PO SCH ×2 (08:17→21:35)
[2021-10-19] MEDS: GABAPENTIN 400MG CAP PO SCH ×3 (08:18→21:35)
[2021-10-19] MEDS: amLODIPine 5 MG TAB PO SCH (08:20)
[2021-10-19] MEDS: OMEPRAZOLE 20MG CAP PO SCH (08:20)
[2021-10-19] MEDS: OSELTAMIVIR PHOSPHATE 75 MG CAP (TAMIFLU) PO SCH ×2 (08:21→21:35)
[2021-10-19] MEDS: METOPROLOL SUCC (TopROL XL) 100MG *XL* TAB PO SCH (08:23)
[2021-10-19] MEDS: LEVEMIR (INSULIN DETEMIR) 1 UNITS/0.01ML SC SCH ×2 (08:24→21:37)
[2021-10-19] MEDS ORDERED: PHYTONADIONE 5 MG TAB PO ONE ×2 (09:05→19:55)
[2021-10-19] MEDS ORDERED: PHYTONADIONE 1.25 MG 1/4 TAB PO ONE (10:00)
[2021-10-19] MEDS ORDERED: PHYTONADIONE 2.5 MG **1/2 TAB PO ONE (11:00)
[2021-10-19 14:10] LABS: MYCOPLASMA PNEUMONIAE IgG 446 U/mL (0-99); MYCOPLASMA PNEUMONIAE IgM <770 U/mL (0-769)
[2021-10-19 16:25] LABS: INR 2.86; PROTHROMBIN TIME 30.3 SECONDS (12.7-14.5)
[2021-10-19 18:38] LABS: HEMATOCRIT 37.5 % (42.0-52.0); HEMOGLOBIN 12.3 g/dl (13.5-17.5); MEAN CORPUSCULAR HEMOGLOBIN 29.6 pg (27.0-33.0); MEAN CORPUSCULAR HGB CONC 32.8 g/dl (32.0-36.5); MEAN CORPUSCULAR VOLUME 90.4 fl (80.0-96.0); PLATELET COUNT, AUTOMATED 102 10^3/uL (150-450); RED BLOOD COUNT 4.15 10^6/uL (4.30-6.10); WHITE BLOOD COUNT 5.2 10^3/uL (4.0-10.0)
[2021-10-19] MEDS: SIMVASTATIN 40 MG TAB PO SCH (21:35)
[2021-10-19] MEDS: cefTRIAXone SOD 1 GM in D5W MINI-BAG PLUS 50 ML IV SCH (21:37)
[2021-10-19] MEDS: AZITHROMYCIN INJ 500 MG, VIAL MATE ADAPTER 1 EACH in NS 250 ML IV SCH (21:37)
[2021-10-20] VITALS (13 sets, daily range): BP systolic 118–132; BP diastolic 57–78; O2SAT 91–98
[2021-10-20] MEDS: methylPREDNISolone 125MG 2ML VIAL IV SCH ×3 (01:53→18:41)
[2021-10-20] MEDS: LEVALBUTEROL 1.25 MG/0.5 ML CONCENTRATE NEB INH SCH ×4 (02:00→19:16)
[2021-10-20] MEDS: FUROSEMIDE 40MG/4ML VIAL (J1940) IV SCH ×3 (04:45→21:35)
[2021-10-20 06:20] LABS: HEMATOCRIT 38.5 % (42.0-52.0); HEMOGLOBIN 12.7 g/dl (13.5-17.5); MEAN CORPUSCULAR HEMOGLOBIN 29.7 pg (27.0-33.0); PLATELET COUNT, AUTOMATED 105 10^3/uL (150-450); RED BLOOD COUNT 4.28 10^6/uL (4.30-6.10); WHITE BLOOD COUNT 5.1 10^3/uL (4.0-10.0)
[2021-10-20 06:29] LABS: INR 2.43; PARTIAL THROMBOPLASTIN TIME 32.6 SECONDS (25.9-37.0); PROTHROMBIN TIME 26.8 SECONDS (12.7-14.5)
[2021-10-20 06:44] LABS: ALBUMIN 3.1 GM/DL (3.2-5.2); ALT/SGPT 88 U/L (12-78); BILIRUBIN,TOTAL 0.9 MG/DL (0.2-1.0); BLOOD UREA NITROGEN 28 MG/DL (7-18); CALCIUM LEVEL 8.4 MG/DL (8.8-10.2); CARBON DIOXIDE LEVEL 37 MEQ/L (21-32); CHLORIDE LEVEL 99 MEQ/L (98-107); GLOMERULAR FILTRATION RATE > 60.0 (>49); GLUCOSE, FASTING 139 MG/DL (70-100); POTASSIUM SERUM 3.6 MEQ/L (3.5-5.1); SODIUM LEVEL 139 MEQ/L (136-145)
[2021-10-20] MEDS ORDERED: PHYTONADIONE 2.5 MG **1/2 TAB PO ONE (09:00)
[2021-10-20] MEDS: LEVEMIR (INSULIN DETEMIR) 1 UNITS/0.01ML SC SCH ×2 (10:47→21:33)
[2021-10-20] MEDS: HumaLOG INSULIN (NovoLOG) PER UNIT SC SCH ×4 (10:47→21:33)
[2021-10-20] MEDS: LOSARTAN 50MG TABLET PO SCH (10:49)
[2021-10-20] MEDS: FERROUS SULFATE 325MG TAB PO SCH (10:49)
[2021-10-20] MEDS: OMEPRAZOLE 20MG CAP PO SCH (10:49)
[2021-10-20] MEDS: guaiFENesin ER 600 MG TAB PO SCH ×2 (10:49→21:35)
[2021-10-20] MEDS: FIDAXOMICIN 200 MG TAB (DIFICID) PO SCH ×2 (10:49→21:34)
[2021-10-20] MEDS: GABAPENTIN 400MG CAP PO SCH ×3 (10:49→21:34)
[2021-10-20] MEDS: SPIRONOLACTONE 25 MG TAB PO SCH (10:49)
[2021-10-20] MEDS: amLODIPine 5 MG TAB PO SCH (10:50)
[2021-10-20] MEDS: OSELTAMIVIR PHOSPHATE 75 MG CAP (TAMIFLU) PO SCH ×2 (10:50→21:34)
[2021-10-20] MEDS: METOPROLOL SUCC (TopROL XL) 100MG *XL* TAB PO SCH (10:54)
[2021-10-20] MEDS: LACTOBACILLUS ACIDOPHILUS CAP (BACID) PO SCH ×2 (11:13→18:42)
[2021-10-20 16:08] LABS: BODY FLUID CULTURE Not indicated. (.); LEGIONELLA ANTIGEN URINE Negative (Negative); ORGANISM ID Not indicated. (.); SPECIMEN SOURCE Urine (.); URINE STREP PNEUMONIAE ANTIGEN Negative (Negative)
[2021-10-20 19:04] LABS: HEMATOCRIT 38.9 % (42.0-52.0); HEMOGLOBIN 12.6 g/dl (13.5-17.5); MEAN CORPUSCULAR HEMOGLOBIN 29.1 pg (27.0-33.0); MEAN CORPUSCULAR HGB CONC 32.4 g/dl (32.0-36.5); MEAN CORPUSCULAR VOLUME 89.8 fl (80.0-96.0); PLATELET COUNT, AUTOMATED 117 10^3/uL (150-450); RED BLOOD COUNT 4.33 10^6/uL (4.30-6.10); WHITE BLOOD COUNT 6.1 10^3/uL (4.0-10.0)
[2021-10-20] MEDS: cefTRIAXone SOD 1 GM in D5W MINI-BAG PLUS 50 ML IV SCH (21:33)
[2021-10-20] MEDS: SIMVASTATIN 40 MG TAB PO SCH (21:34)
[2021-10-20] MEDS: NORCO, ANEXSIA 5/325MG TABLET (HYDROcodone/ACETAMINOPHEN) PO PRN (21:34)
[2021-10-20] MEDS: AZITHROMYCIN INJ 500 MG, VIAL MATE ADAPTER 1 EACH in NS 250 ML IV SCH (22:57)
[2021-10-21 01:09] VITALS: BP 125/55
[2021-10-21] MEDS: methylPREDNISolone 125MG 2ML VIAL IV SCH ×2 (01:11→08:42)
[2021-10-21] MEDS: LEVALBUTEROL 1.25 MG/0.5 ML CONCENTRATE NEB INH SCH ×3 (01:39→14:00)
[2021-10-21 04:16] VITALS: BP 130/78
[2021-10-21] MEDS: FUROSEMIDE 40MG/4ML VIAL (J1940) IV SCH ×2 (05:27→13:28)
[2021-10-21 05:30] LABS: HEMATOCRIT 38.1 % (42.0-52.0); HEMOGLOBIN 12.5 g/dl (13.5-17.5); MEAN CORPUSCULAR HEMOGLOBIN 29.1 pg (27.0-33.0); MEAN CORPUSCULAR HGB CONC 32.8 g/dl (32.0-36.5); MEAN CORPUSCULAR VOLUME 88.8 fl (80.0-96.0); PLATELET COUNT, AUTOMATED 105 10^3/uL (150-450); RED BLOOD COUNT 4.29 10^6/uL (4.30-6.10); WHITE BLOOD COUNT 4.6 10^3/uL (4.0-10.0)
[2021-10-21 08:21] LABS: ALT/SGPT 110 U/L (12-78); BILIRUBIN,TOTAL 0.8 MG/DL (0.2-1.0); BLOOD UREA NITROGEN 24 MG/DL (7-18); CALCIUM LEVEL 8.3 MG/DL (8.8-10.2); CARBON DIOXIDE LEVEL 34 MEQ/L (21-32); CHLORIDE LEVEL 101 MEQ/L (98-107); GLOMERULAR FILTRATION RATE > 60.0 (>49); GLUCOSE, FASTING 193 MG/DL (70-100); MAGNESIUM LEVEL 2.4 MG/DL (1.8-2.4); POTASSIUM SERUM 3.9 MEQ/L (3.5-5.1); SODIUM LEVEL 140 MEQ/L (136-145); TOTAL PROTEIN 6.6 GM/DL (6.4-8.2)
[2021-10-21 08:24] VITALS: BP 136/62
[2021-10-21] MEDS: GABAPENTIN 400MG CAP PO SCH (08:40)
[2021-10-21] MEDS: amLODIPine 5 MG TAB PO SCH (08:40)
[2021-10-21] MEDS: FERROUS SULFATE 325MG TAB PO SCH (08:40)
[2021-10-21] MEDS: HumaLOG INSULIN (NovoLOG) PER UNIT SC SCH ×2 (08:40→13:28)
[2021-10-21] MEDS: OMEPRAZOLE 20MG CAP PO SCH (08:40)
[2021-10-21] MEDS: guaiFENesin ER 600 MG TAB PO SCH (08:41)
[2021-10-21] MEDS: LACTOBACILLUS ACIDOPHILUS CAP (BACID) PO SCH (08:41)
[2021-10-21] MEDS: FIDAXOMICIN 200 MG TAB (DIFICID) PO SCH (08:41)
[2021-10-21] MEDS: LOSARTAN 50MG TABLET PO SCH (08:41)
[2021-10-21] MEDS: LEVEMIR (INSULIN DETEMIR) 1 UNITS/0.01ML SC SCH (08:42)
[2021-10-21 10:22] LABS: INR 1.88
[2021-10-21] MEDS: SPIRONOLACTONE 25 MG TAB PO SCH (11:03)
[2021-10-21] MEDS: METOPROLOL SUCC (TopROL XL) 100MG *XL* TAB PO SCH (11:03)
[2021-10-21 12:12] VITALS: BP 128/70
[2021-10-21] MEDS ORDERED: PRED10TA2 PO (12:43)
[2021-10-21] MEDS ORDERED: WARF4TAB52 PO (12:43)
[2021-10-21] MEDS ORDERED: PROAAER10 INH (12:43)
[2021-10-21] MEDS ORDERED: TOUJ300I2 SC (12:43)
[2021-10-21] MEDS ORDERED: LASI40TA9 PO (13:09)
[2021-10-21] MEDS ORDERED: FIDA200TA PO (14:17)
[2021-10-22 15:10] LABS: CHLAMYDIA PNEUMONIAE IgM <1:10 (Neg:<1:10)
== END 2021-10-21 15:02 | disposition home or self-care (01) | DRG 871 ==
LOC: M ED 11:42 → M ED INP 15:57 → ENRESERV 17:39 → M ICU 19:06 → M 4MAIN 10-19 16:05 → M PCU 10-19 16:32
PROVIDERS: ADMIT Internal Medicine; ATTEND Family Medicine
PROC: 30233K1 Transfusion of Nonautologous Frozen Plasma into Peripheral Vein, Percutaneous Approach (ICD-10-PCS; principal; 2021-10-18)
DX: A41.9 Sepsis, unspecified organism (principal); J12.9 Viral pneumonia, unspecified; J96.02 Acute respiratory failure with hypercapnia; J96.01 Acute respiratory failure with hypoxia; J15.9 Unspecified bacterial pneumonia; I85.11 Secondary esophageal varices with bleeding; J44.1 Chronic obstructive pulmonary disease with (acute) exacerbation; R18.8 Other ascites; E87.1 Hypo-osmolality and hyponatremia; K76.6 Portal hypertension; K92.2 Gastrointestinal hemorrhage, unspecified; A04.72 Enterocolitis due to Clostridium difficile, not specified as recurrent; E87.2 Acidosis; E66.2 Morbid (severe) obesity with alveolar hypoventilation; I11.0 Hypertensive heart disease with heart failure; E11.9 Type 2 diabetes mellitus without complications; D69.6 Thrombocytopenia, unspecified; I50.9 Heart failure, unspecified; K74.60 Unspecified cirrhosis of liver; Z79.899 Other long term (current) drug therapy; Z79.4 Long term (current) use of insulin; Z88.8 Allergy status to other drugs, medicaments and biological substances; D50.9 Iron deficiency anemia, unspecified; Z86.73 Personal history of transient ischemic attack (TIA), and cerebral infarction without residual deficits; Z79.01 Long term (current) use of anticoagulants; K21.9 Gastro-esophageal reflux disease without esophagitis; E78.5 Hyperlipidemia, unspecified; L40.8 Other psoriasis; Z87.891 Personal history of nicotine dependence; Z89.612 Acquired absence of left leg above knee; I27.20 Pulmonary hypertension, unspecified; I36.0 Nonrheumatic tricuspid (valve) stenosis; Z68.36 Body mass index [BMI] 36.0-36.9, adult

== ENCOUNTER 2021-11-04 13:22 | Inpatient (IN) | payer MEDICARE ==
[~2021-11-04] VITALS: Ht 175.3 cm; Wt 119.8 kg
[~2021-11-04 13:22] MED LIST changes: +AMLO1TAB24 PO; +DIFI200T PO; +FIDA200TA PO; +HYDR-4517 PO; +LASI40TA9 PO; +PRED10TA2 PO; +PROAAER10 INH; +SPIR-10 PO; +TOUJ300I2 SC; +WARF-20 PO; +WARF4TAB52 PO
[2021-11-04] MEDS ORDERED: DEXTROSE 50% 50 ML SYRINGE IV STA ×2 (13:55→15:44)
[2021-11-04 15:19] LABS: HEMATOCRIT 38.4 % (42.0-52.0); HEMOGLOBIN 12.2 g/dl (13.5-17.5); LYMPH # 0.4 10^3/uL (1.5-5.0); LYMPH % 6.3 % (24.0-44.0); MEAN CORPUSCULAR HEMOGLOBIN 29.7 pg (27.0-33.0); MEAN CORPUSCULAR HGB CONC 31.8 g/dl (32.0-36.5); MEAN CORPUSCULAR VOLUME 93.4 fl (80.0-96.0); MONO # 0.3 10^3/uL (0.0-0.8); MONO % 5.2 % (2.0-8.0); NEUTROPHILS # 5.3 10^3/uL (1.5-8.5); NEUTROPHILS % 88.2 % (36.0-66.0); PLATELET COUNT, AUTOMATED 53 10^3/uL (150-450); RED BLOOD COUNT 4.11 10^6/uL (4.30-6.10)
[2021-11-04 15:48] LABS: OSMOLALITY SERUM 292 MOSM/KG (275-295)
[2021-11-04 15:49] LABS: MB/CK RELATIVE INDEX 3.12 (< OR =4)
[2021-11-04 15:58] LABS: ALT/SGPT 61 U/L (12-78); BILIRUBIN,DIRECT 0.3 MG/DL (0.0-0.2); BILIRUBIN,TOTAL 0.6 MG/DL (0.2-1.0); BLOOD UREA NITROGEN 22 MG/DL (7-18); CALCIUM LEVEL 8.4 MG/DL (8.8-10.2); CARBON DIOXIDE LEVEL 34 MEQ/L (21-32); CHLORIDE LEVEL 106 MEQ/L (98-107); CREATININE FOR GFR 1.07 MG/DL (0.70-1.30); ETHYL ALCOHOL (ETHANOL) < 0.003 % (0.000-0.010); GLOMERULAR FILTRATION RATE > 60.0 (>49); GLUCOSE, FASTING 40 MG/DL (70-100); POTASSIUM SERUM 4.8 MEQ/L (3.5-5.1); SODIUM LEVEL 140 MEQ/L (136-145); TOTAL PROTEIN 6.5 GM/DL (6.4-8.2)
[2021-11-04] MEDS: D10W 1,000 ML IV SCH ×2 (16:08→18:25)
[2021-11-04 16:18] LABS: VENOUS BASE EXCESS 1.2 (-2.0-2.0); VENOUS HCO3 28.4 MEQ/L (23.0-27.0); VENOUS O2 SATURATION 93.3 % (60.0-80.0); VENOUS PARTIAL PRESSURE CO2 55.7 mmHg (38.0-50.0); VENOUS PARTIAL PRESSURE O2 67.2 mmHg (30.0-50.0); VENOUS PH 7.325 UNITS (7.330-7.430); VENOUS STANDARD HCO3 25.5 MEQ/L; VENOUS TOTAL CO2 30.1 MEQ/L (24.0-28.0)
[2021-11-04 16:46] LABS: AMPHETAMINES LEVEL URINE NEGATIVE (NEGATIVE); BARBITURATES URINE NEGATIVE (NEGATIVE); BENZODIAZEPINES URINE NEGATIVE (NEGATIVE); CANNABINOIDS URINE NEGATIVE (NEGATIVE); COCAINE METABOLITE URINE NEGATIVE (NEGATIVE); METHADONE URINE NEGATIVE (NEGATIVE); OPIATES URINE POSITIVE (NEGATIVE); PHENCYCLIDINE URINE NEGATIVE (NEGATIVE)
[2021-11-04] MEDS: DEXTROSE 50% 50 ML SYRINGE IV PRN (19:50)
[2021-11-04 21:53] LABS: PROTHROMBIN TIME 51.3 SECONDS (12.7-14.5)
[2021-11-04 21:54] LABS: PARTIAL THROMBOPLASTIN TIME 59.5 SECONDS (25.9-37.0)
[2021-11-04 21:56] LABS: INR 5.69
[2021-11-04] MEDS ORDERED: PHYTONADIONE 5 MG TAB PO ONE (22:15)
[2021-11-04] MEDS ORDERED: FERR1TAB8 PO (22:48)
[2021-11-04] MEDS ORDERED: TOPR200T PO (22:48)
[2021-11-04] MEDS ORDERED: TOUJ1.2I SC (22:48)
[2021-11-04] MEDS ORDERED: WARF4TAB52 PO (22:48)
[2021-11-04] MEDS ORDERED: FURO40TA2 PO (22:48)
[2021-11-04] MEDS ORDERED: ALBU8.5H INH (22:48)
[2021-11-04 22:50] VITALS: BP 149/70
[2021-11-04] MEDS ORDERED: OMEP-173 PO (22:52)
[2021-11-04] MEDS ORDERED: TREM100I SC (22:52)
[2021-11-04] MEDS ORDERED: HOME MED LIST COMPLETE! XX SCH (22:55)
[2021-11-05] VITALS (7 sets, daily range): BP systolic 138–180; BP diastolic 60–82
[2021-11-05] MEDS: D10W 1,000 ML IV SCH ×2 (00:29→08:36)
[2021-11-05] MEDS: DEXTROSE 50% 50 ML SYRINGE IV PRN ×2 (00:43→12:23)
[2021-11-05 04:57] LABS: ABG BASE EXCESS 2.2 (-2.0-2.0); ABG HCO3 26.6 MEQ/L (22.0-26.0); ABG O2 SATURATION 94.6 % (95.0-99.0); ABG PARTIAL PRESSURE CO2 40.5 mmHg (35.0-45.0); ABG PARTIAL PRESSURE O2 65.6 mmHg (75.0-100.0); ABG STANDARD HCO3 26.4 MEQ/L (22.0-26.0); ABG TOTAL CO2 27.8 MEQ/L (23.0-31.0); ABG pH (ARTERIAL) 7.435 UNITS (7.350-7.450)
[2021-11-05 05:28] LABS: BASO % 0.2 % (0.0-1.0); EOS # 0.1 10^3/uL (0.0-0.5); EOS % 1.1 % (0.0-3.0); HEMATOCRIT 34.3 % (42.0-52.0); HEMOGLOBIN 10.9 g/dl (13.5-17.5); LYMPH # 0.7 10^3/uL (1.5-5.0); LYMPH % 16.3 % (24.0-44.0); MEAN CORPUSCULAR HEMOGLOBIN 28.8 pg (27.0-33.0); MEAN CORPUSCULAR HGB CONC 31.8 g/dl (32.0-36.5); MEAN CORPUSCULAR VOLUME 90.5 fl (80.0-96.0); MONO # 0.4 10^3/uL (0.0-0.8); MONO % 8.6 % (2.0-8.0); NEUTROPHILS # 3.3 10^3/uL (1.5-8.5); NEUTROPHILS % 73.6 % (36.0-66.0); RED BLOOD COUNT 3.79 10^6/uL (4.30-6.10); WHITE BLOOD COUNT 4.5 10^3/uL (4.0-10.0)
[2021-11-05 05:35] LABS: PLATELET COUNT, AUTOMATED 54 10^3/uL (150-450)
[2021-11-05 05:45] LABS: BLOOD UREA NITROGEN 16 MG/DL (7-18); CALCIUM LEVEL 8.1 MG/DL (8.8-10.2); CARBON DIOXIDE LEVEL 31 MEQ/L (21-32); CHLORIDE LEVEL 106 MEQ/L (98-107); CREATININE FOR GFR 1.01 MG/DL (0.70-1.30); GLOMERULAR FILTRATION RATE > 60.0 (>49); GLUCOSE, FASTING 86 MG/DL (70-100); POTASSIUM SERUM 4.6 MEQ/L (3.5-5.1); SODIUM LEVEL 139 MEQ/L (136-145)
[2021-11-05 05:49] LABS: ALBUMIN 2.7 GM/DL (3.2-5.2); BILIRUBIN,DIRECT 0.2 MG/DL (0.0-0.2); BILIRUBIN,TOTAL 0.6 MG/DL (0.2-1.0)
[2021-11-05 09:51] LABS: INR 3.86; PARTIAL THROMBOPLASTIN TIME 45.6 SECONDS (25.9-37.0); PROTHROMBIN TIME 38.1 SECONDS (12.7-14.5)
[2021-11-05] MEDS: GABAPENTIN 300 MG CAP PO SCH ×3 (11:33→20:38)
[2021-11-05] MEDS: OMEPRAZOLE 20MG CAP PO SCH (11:33)
[2021-11-05] MEDS: amLODIPine 5 MG TAB PO SCH (11:33)
[2021-11-05] MEDS: SPIRONOLACTONE 25 MG TAB PO SCH (11:34)
[2021-11-05] MEDS ORDERED: PHYTONADIONE INJection 5 MG in NS 50 ML IV ONE (13:00)
[2021-11-05] MEDS: FUROSEMIDE 40MG/4ML VIAL (J1940) IV SCH (16:16)
[2021-11-05 20:16] LABS: INR 2.29; PROTHROMBIN TIME 25.6 SECONDS (12.7-14.5)
[2021-11-05 20:17] LABS: PARTIAL THROMBOPLASTIN TIME 37.1 SECONDS (25.9-37.0)
[2021-11-05 20:26] LABS: BLOOD UREA NITROGEN 13 MG/DL (7-18); CALCIUM LEVEL 8.6 MG/DL (8.8-10.2); CARBON DIOXIDE LEVEL 30 MEQ/L (21-32); CHLORIDE LEVEL 105 MEQ/L (98-107); GLOMERULAR FILTRATION RATE > 60.0 (>49); GLUCOSE, FASTING 191 MG/DL (70-100); POTASSIUM SERUM 4.5 MEQ/L (3.5-5.1); SODIUM LEVEL 139 MEQ/L (136-145)
[2021-11-05] MEDS: SIMVASTATIN 40 MG TAB PO SCH (20:38)
[2021-11-06 00:21] VITALS: BP 147/70
[2021-11-06 04:30] VITALS: BP 144/67
[2021-11-06 07:13] LABS: INR 1.64; PROTHROMBIN TIME 19.8 SECONDS (12.7-14.5)
[2021-11-06 07:14] LABS: PARTIAL THROMBOPLASTIN TIME 28.7 SECONDS (25.9-37.0)
[2021-11-06 07:18] LABS: BLOOD UREA NITROGEN 11 MG/DL (7-18); CREATININE FOR GFR 1.01 MG/DL (0.70-1.30); GLUCOSE, FASTING 119 MG/DL (70-100)
[2021-11-06 07:19] LABS: CALCIUM LEVEL 8.3 MG/DL (8.8-10.2); CARBON DIOXIDE LEVEL 30 MEQ/L (21-32); CHLORIDE LEVEL 105 MEQ/L (98-107); GLOMERULAR FILTRATION RATE > 60.0 (>49); POTASSIUM SERUM 4.1 MEQ/L (3.5-5.1); SODIUM LEVEL 142 MEQ/L (136-145)
[2021-11-06 07:22] VITALS: BP 146/70
[2021-11-06] MEDS: GABAPENTIN 300 MG CAP PO SCH ×3 (08:29→20:01)
[2021-11-06] MEDS: SPIRONOLACTONE 25 MG TAB PO SCH (08:29)
[2021-11-06] MEDS: FUROSEMIDE 40MG/4ML VIAL (J1940) IV SCH (08:29)
[2021-11-06] MEDS: OMEPRAZOLE 20MG CAP PO SCH (08:29)
[2021-11-06] MEDS: amLODIPine 5 MG TAB PO SCH (08:30)
[2021-11-06 10:24] LABS: APPEARANCE, BODY FLUID HAZY (CLEAR); ASCITES FL COLOR YELLOW (COLORLESS); SOURCE, BODY FLUID ASCITES
[2021-11-06 10:47] LABS: BASO % 0.6 % (0.0-1.0); EOS # 0.1 10^3/uL (0.0-0.5); EOS % 1.7 % (0.0-3.0); HEMATOCRIT 35.4 % (42.0-52.0); HEMOGLOBIN 11.4 g/dl (13.5-17.5); LYMPH # 0.6 10^3/uL (1.5-5.0); LYMPH % 16.1 % (24.0-44.0); MEAN CORPUSCULAR HEMOGLOBIN 29.2 pg (27.0-33.0); MEAN CORPUSCULAR HGB CONC 32.2 g/dl (32.0-36.5); MEAN CORPUSCULAR VOLUME 90.5 fl (80.0-96.0); MONO # 0.3 10^3/uL (0.0-0.8); MONO % 9.8 % (2.0-8.0); NEUTROPHILS # 2.5 10^3/uL (1.5-8.5); NEUTROPHILS % 71.5 % (36.0-66.0); PLATELET COUNT, AUTOMATED 46 10^3/uL (150-450); RED BLOOD COUNT 3.91 10^6/uL (4.30-6.10); WHITE BLOOD COUNT 3.5 10^3/uL (4.0-10.0)
[2021-11-06 10:55] LABS: SOURCE, BODY FLUID ALBUMIN ASCITES
[2021-11-06 11:04] LABS: SOURCE, BODY FLUID GLUCOSE ASCITES; SOURCE, BODY FLUID TOT PROTEIN ASCITES; TOTAL PROTEIN, BODY FLUID 1.2 G/DL (NOT ESTABLISHED)
[2021-11-06 11:29] LABS: SPEC. GRAVITY BODY FLUIDS 1.011 (NOT ESTABLISHED)
[2021-11-06] MEDS: FUROSEMIDE 40 MG TAB PO SCH (16:06)
[2021-11-06 16:13] VITALS: BP 162/73
[2021-11-06 20:00] VITALS: BP 171/76
[2021-11-06] MEDS: SIMVASTATIN 40 MG TAB PO SCH (20:01)
[2021-11-07 04:00] VITALS: BP 133/60
[2021-11-07 07:55] LABS: BASO % 0.3 % (0.0-1.0); EOS # 0.1 10^3/uL (0.0-0.5); EOS % 2.4 % (0.0-3.0); HEMATOCRIT 33.9 % (42.0-52.0); HEMOGLOBIN 10.8 g/dl (13.5-17.5); LYMPH # 0.4 10^3/uL (1.5-5.0); LYMPH % 14.2 % (24.0-44.0); MEAN CORPUSCULAR HEMOGLOBIN 29.3 pg (27.0-33.0); MEAN CORPUSCULAR HGB CONC 31.9 g/dl (32.0-36.5); MEAN CORPUSCULAR VOLUME 92.1 fl (80.0-96.0); MONO # 0.3 10^3/uL (0.0-0.8); MONO % 9.4 % (2.0-8.0); NEUTROPHILS # 2.1 10^3/uL (1.5-8.5); NEUTROPHILS % 73.4 % (36.0-66.0); RED BLOOD COUNT 3.68 10^6/uL (4.30-6.10); WHITE BLOOD COUNT 2.9 10^3/uL (4.0-10.0)
[2021-11-07 07:56] LABS: PLATELET COUNT, AUTOMATED 50 10^3/uL (150-450)
[2021-11-07 07:59] VITALS: BP 158/74
[2021-11-07 08:04] LABS: INR 1.43; PROTHROMBIN TIME 17.9 SECONDS (12.7-14.5)
[2021-11-07 08:05] LABS: PARTIAL THROMBOPLASTIN TIME 32.5 SECONDS (25.9-37.0)
[2021-11-07] MEDS: FUROSEMIDE 40 MG TAB PO SCH (08:11)
[2021-11-07] MEDS: GABAPENTIN 300 MG CAP PO SCH (08:12)
[2021-11-07] MEDS: SPIRONOLACTONE 25 MG TAB PO SCH (08:12)
[2021-11-07] MEDS: OMEPRAZOLE 20MG CAP PO SCH (08:12)
[2021-11-07 08:13] LABS: BLOOD UREA NITROGEN 10 MG/DL (7-18); CALCIUM LEVEL 8.4 MG/DL (8.8-10.2); CARBON DIOXIDE LEVEL 29 MEQ/L (21-32); CHLORIDE LEVEL 105 MEQ/L (98-107); CREATININE FOR GFR 0.95 MG/DL (0.70-1.30); GLOMERULAR FILTRATION RATE > 60.0 (>49); GLUCOSE, FASTING 169 MG/DL (70-100); POTASSIUM SERUM 3.9 MEQ/L (3.5-5.1); SODIUM LEVEL 139 MEQ/L (136-145)
[2021-11-07] MEDS: amLODIPine 5 MG TAB PO SCH (08:13)
[2021-11-07] MEDS ORDERED: LEVEMIR (INSULIN DETEMIR) 1 UNITS/0.01ML SC SCH (09:00)
[2021-11-07] MEDS ORDERED: METOPROLOL SUCC (TopROL XL) 100MG *XL* TAB PO SCH (09:00)
[2021-11-07] MEDS ORDERED: FONDAPARINUX SODIUM 2.5 MG/0.5 ML SYR (J1652 PER 0.5MG) SC SCH (09:00)
[2021-11-07 10:04] VITALS: BP 137/62
[2021-11-07 12:00] VITALS: BP 155/68
[2021-11-07] MEDS ORDERED: LOSARTAN 50MG TABLET PO SCH (12:00)
[2021-11-07 12:13] VITALS: BP 155/68
[2021-11-07] MEDS ORDERED: SPIR-10 PO (13:39)
[2021-11-07] MEDS ORDERED: FURO40TA2 PO (13:39)
[2021-11-07] MEDS ORDERED: TOUJ1.2I SC (13:39)
[2021-11-07] MEDS ORDERED: BLOOKIT21 XX (13:44)
[2021-11-07] MEDS ORDERED: JANT3TAB PO (13:44)
[2021-11-07] MEDS ORDERED: ALCOPAD25 TOP (13:44)
[2021-11-07] MEDS ORDERED: PEN1MIS22 SC (13:44)
[2021-11-07] MEDS ORDERED: GLUC1TES2 XX (13:44)
[2021-11-07] MEDS ORDERED: LANC30MI XX (13:44)
[2021-11-07] MEDS ORDERED: WARFARIN SOD 3MG TAB PO SCH (17:00)
[2021-11-07] MEDS ORDERED: WARFARIN SOD 4MG TAB PO ONE (17:00)
[2021-11-07] MEDS ORDERED: APIXABAN 5 MG TAB (ELIQUIS) PO SCH ×2 (21:00)
[2021-11-08] MEDS ORDERED: LOSARTAN 50MG TABLET PO SCH (09:00)
[2021-11-09 10:06] LABS: DRVV SCREEN 46.9 SEC
[2021-11-09 10:07] LABS: PTT LUPUS TYPE ANTICOAG SCREEN 1.2 (0-1.2)
[2021-11-09 10:12] LABS: DRVV CONFIRM 44.7 SEC; LUPUS CONFIRM RATIO 1.2
== END 2021-11-07 15:50 | disposition home or self-care (01) | DRG 637 ==
LOC: M ED 13:22 → EDBD 13:22 → M ED INP 13:23 → ENRESERV 21:00 → M PCU 22:30 → OBSVTOIN 22:46
PROVIDERS: ADMIT Internal Medicine Nephrology; ATTEND Internal Medicine Nephrology
PROC: 0W9D3ZZ Drainage of Pericardial Cavity, Percutaneous Approach (ICD-10-PCS; principal; 2021-11-06 09:00)
DX: E11.649 Type 2 diabetes mellitus with hypoglycemia without coma (principal); G93.41 Metabolic encephalopathy; R18.8 Other ascites; J96.11 Chronic respiratory failure with hypoxia; I85.00 Esophageal varices without bleeding; E66.2 Morbid (severe) obesity with alveolar hypoventilation; J96.12 Chronic respiratory failure with hypercapnia; I50.32 Chronic diastolic (congestive) heart failure; K76.6 Portal hypertension; K74.60 Unspecified cirrhosis of liver; I86.8 Varicose veins of other specified sites; I86.4 Gastric varices; D69.6 Thrombocytopenia, unspecified; J44.9 Chronic obstructive pulmonary disease, unspecified; J98.4 Other disorders of lung; Z86.73 Personal history of transient ischemic attack (TIA), and cerebral infarction without residual deficits; Z89.512 Acquired absence of left leg below knee; I11.0 Hypertensive heart disease with heart failure; E78.5 Hyperlipidemia, unspecified; L40.9 Psoriasis, unspecified; H02.409 Unspecified ptosis of unspecified eyelid; D50.9 Iron deficiency anemia, unspecified; K21.9 Gastro-esophageal reflux disease without esophagitis; F17.200 Nicotine dependence, unspecified, uncomplicated; N26.1 Atrophy of kidney (terminal); I27.20 Pulmonary hypertension, unspecified; Z86.16 Personal history of COVID-19; Z90.49 Acquired absence of other specified parts of digestive tract; K75.81 Nonalcoholic steatohepatitis (NASH); E88.01 Alpha-1-antitrypsin deficiency

== ENCOUNTER → 2021-11-17 | Outpatient (CLI) | payer MEDICARE ==
[~2021-11-17] MED LIST changes: +ALBU8.5H INH; +ALCOPAD25 TOP; +BLOOKIT21 XX; +FERR1TAB8 PO; +FURO40TA2 PO; +GLUC1TES2 XX; +JANT3TAB PO; +LANC30MI XX; +OMEP-173 PO; +PEN1MIS22 SC; +TOPR200T PO; +TOUJ1.2I SC; +TREM100I SC
[2021-11-17 14:34] LABS: BASO % 0.3 % (0.0-1.0); EOS # 0.1 10^3/uL (0.0-0.5); EOS % 1.4 % (0.0-3.0); HEMATOCRIT 40.3 % (42.0-52.0); HEMOGLOBIN 12.5 g/dl (13.5-17.5); LYMPH % 18.1 % (24.0-44.0); MEAN CORPUSCULAR HEMOGLOBIN 28.4 pg (27.0-33.0); MEAN CORPUSCULAR VOLUME 91.6 fl (80.0-96.0); MONO # 0.7 10^3/uL (0.0-0.8); MONO % 12.2 % (2.0-8.0); NEUTROPHILS # 3.9 10^3/uL (1.5-8.5); NEUTROPHILS % 67.1 % (36.0-66.0); PLATELET COUNT, AUTOMATED 170 10^3/uL (150-450); WHITE BLOOD COUNT 5.8 10^3/uL (4.0-10.0)
[2021-11-17 14:41] LABS: ALBUMIN 3.1 GM/DL (3.2-5.2); ALT/SGPT 28 U/L (12-78); BILIRUBIN,TOTAL 0.6 MG/DL (0.2-1.0); BLOOD UREA NITROGEN 9 MG/DL (7-18); CARBON DIOXIDE LEVEL 29 MEQ/L (21-32); CHLORIDE LEVEL 103 MEQ/L (98-107); CHOLESTEROL LEVEL 122 MG/DL (<200); CHOLESTEROL RISK RATIO 4.066 (<5); CREATININE FOR GFR 1.11 MG/DL (0.70-1.30); GLOMERULAR FILTRATION RATE > 60.0 (>49); GLUCOSE, FASTING 166 MG/DL (70-100); HDL CHOLESTEROL 30 MG/DL (>40); LDL CHOLESTEROL 55 MG/DL (<100); NON-HDL-C 92 MG/DL; POTASSIUM SERUM 4.1 MEQ/L (3.5-5.1); SODIUM LEVEL 142 MEQ/L (136-145); TOTAL PROTEIN 6.9 GM/DL (6.4-8.2); TRIGLYCERIDES LEVEL 185 MG/DL (<150)
[2021-11-17 14:44] LABS: INR 2.4; PROTHROMBIN TIME 26.5 SECONDS (12.7-14.5)
[2021-11-17 15:16] LABS: HEMOGLOBIN A1c 6.9 %
== END ==
LOC: M WUC 12:10
PROVIDERS: ATTEND Family Medicine
DX: E11.9 Type 2 diabetes mellitus without complications (principal); Z79.01 Long term (current) use of anticoagulants; I10 Essential (primary) hypertension; D69.6 Thrombocytopenia, unspecified

== ENCOUNTER → 2021-12-14 | Outpatient (CLI) | payer MEDICARE ==
[~2021-12-14] MED LIST changes: +AMLO10TA PO; +COMBAER6 INH; +MELA10CA2 PO
[2021-12-14 16:53] LABS: INR 3.53; PROTHROMBIN TIME 35.6 SECONDS (12.7-14.5)
== END ==
LOC: M WUC 13:44
PROVIDERS: ATTEND Student in an Organized Health Care Education/Training Program
DX: Z51.81 Encounter for therapeutic drug level monitoring (principal); Z79.01 Long term (current) use of anticoagulants

== ENCOUNTER → 2021-12-14 | Outpatient (CLI) | payer MEDICARE ==
[2021-12-14 16:13] LABS: BASO % 0.5 % (0.0-1.0); EOS # 0.1 10^3/uL (0.0-0.5); EOS % 1.5 % (0.0-3.0); HEMATOCRIT 41.3 % (42.0-52.0); HEMOGLOBIN 12.9 g/dl (13.5-17.5); LYMPH # 0.9 10^3/uL (1.5-5.0); LYMPH % 15.1 % (24.0-44.0); MEAN CORPUSCULAR HEMOGLOBIN 28.5 pg (27.0-33.0); MEAN CORPUSCULAR HGB CONC 31.2 g/dl (32.0-36.5); MEAN CORPUSCULAR VOLUME 91.4 fl (80.0-96.0); MONO # 0.5 10^3/uL (0.0-0.8); MONO % 7.6 % (2.0-8.0); NEUTROPHILS # 4.5 10^3/uL (1.5-8.5); PLATELET COUNT, AUTOMATED 141 10^3/uL (150-450); RED BLOOD COUNT 4.52 10^6/uL (4.30-6.10)
[2021-12-14 16:44] LABS: ALBUMIN 3.2 GM/DL (3.2-5.2); ALT/SGPT 20 U/L (12-78); BILIRUBIN,TOTAL 0.8 MG/DL (0.2-1.0); BLOOD UREA NITROGEN 10 MG/DL (7-18); CALCIUM LEVEL 9.6 MG/DL (8.8-10.2); CARBON DIOXIDE LEVEL 29 MEQ/L (21-32); CHLORIDE LEVEL 102 MEQ/L (98-107); CREATININE FOR GFR 1.26 MG/DL (0.70-1.30); GLOMERULAR FILTRATION RATE > 60.0 (>49); GLUCOSE, FASTING 211 MG/DL (70-100); IRON (FE) 61 UG/DL (65-175); PERCENT SATURATION 14.8 % (19.7-50.0); POTASSIUM SERUM 3.8 MEQ/L (3.5-5.1); SODIUM LEVEL 141 MEQ/L (136-145); TOTAL IRON BINDING CAPACITY 413 UG/DL (250-450); TOTAL PROTEIN 7.2 GM/DL (6.4-8.2)
[2021-12-14 17:05] LABS: HEPATITIS B SURFACE ANTIGEN NEGATIVE (NEGATIVE)
[2021-12-14 17:31] LABS: HEPATITIS C VIRUS ABY INDEX 0.2 INDEX (<0.8)
[2021-12-14 17:32] LABS: HEPATITIS B CORE ANTIBODY IGM NEGATIVE (NEGATIVE)
[2021-12-17 17:07] LABS: ANCA-ATYPICAL <1:20 titer (Neg:<1:20); ANTI-MITOCHONDRIAL ANTIBODY <20.0 Units (0.0-20.0); ANTINUCLEAR ANTIBODIES DIRECT Negative (Negative); CYTOPLASMIC NEUTROP AB ANCA-C <1:20 titer (Neg:<1:20); LIVER-KIDNEY MICROSOMAL ABY <20.1 Units (0.0-20.0); PERINUCLEAR AB ANCA-P <1:20 titer (Neg:<1:20)
== END ==
LOC: M WUC 13:49
PROVIDERS: ATTEND Internal Medicine Gastroenterology
DX: K74.60 Unspecified cirrhosis of liver (principal); Z51.81 Encounter for therapeutic drug level monitoring; Z79.01 Long term (current) use of anticoagulants

== ENCOUNTER → 2021-12-17 | Outpatient (CLI) | payer MEDICARE | LOC: M RAD 11:04 | PROVIDERS: ATTEND Student in an Organized Health Care Education/Training Program | DX: I73.9 Peripheral vascular disease, unspecified (principal) ==

== ENCOUNTER → 2021-12-27 | Outpatient (CLI) | payer MEDICARE | LOC: M LABSMTC 12:23 | PROVIDERS: ATTEND Anesthesiology | DX: Z01.812 Encounter for preprocedural laboratory examination (principal); Z20.822 Contact with and (suspected) exposure to COVID-19 ==

== ENCOUNTER → 2021-12-28 | Outpatient (REF) | payer MEDICARE ==
[2021-12-28 16:34] LABS: INR 3.36; PROTHROMBIN TIME 34.3 SECONDS (12.7-14.5)
== END ==
LOC: M WUC 14:58
PROVIDERS: ATTEND Student in an Organized Health Care Education/Training Program
DX: Z79.899 Other long term (current) drug therapy (principal)

== ENCOUNTER 2022-01-01 07:06 | Day surgery (SDC) | payer MEDICARE ==
[~2022-01-01] VITALS: Ht 175.3 cm; Wt 111.1 kg
[~2022-01-01 07:06] MED LIST changes: +NS 1,000 ML IV ONE
[2022-01-01] MEDS ORDERED: propofoL 500 MG/50 ML VIAL As Ordered ONE (07:17)
[2022-01-01] MEDS ORDERED: fentaNYL 100 MCG/2 ML INJECTION As Ordered ONE (09:52)
[2022-01-01] MEDS ORDERED: propofoL 200 MG/20 ML VIAL As Ordered ONE ×2 (10:10→10:29)
[2022-01-01 11:15] VITALS: BP 149/81
== END 2022-01-01 11:54 | disposition home or self-care (01) ==
LOC: M OPP 07:06
PROVIDERS: ATTEND Internal Medicine Gastroenterology
DX: D49.0 Neoplasm of unspecified behavior of digestive system (principal); D12.5 Benign neoplasm of sigmoid colon; K64.8 Other hemorrhoids; K92.1 Melena; K76.6 Portal hypertension; K31.89 Other diseases of stomach and duodenum; I85.10 Secondary esophageal varices without bleeding; K74.60 Unspecified cirrhosis of liver; R12 Heartburn; Z79.1 Long term (current) use of non-steroidal anti-inflammatories (NSAID); Z79.2 Long term (current) use of antibiotics; Z79.51 Long term (current) use of inhaled steroids; Z79.891 Long term (current) use of opiate analgesic; Z79.899 Other long term (current) drug therapy; Z88.8 Allergy status to other drugs, medicaments and biological substances; Z86.718 Personal history of other venous thrombosis and embolism; Z86.73 Personal history of transient ischemic attack (TIA), and cerebral infarction without residual deficits; Z96.82 Presence of neurostimulator; F17.210 Nicotine dependence, cigarettes, uncomplicated
CPT/HCPCS: 43239; 45380; 45385; 88305; J3010

== ENCOUNTER → 2022-01-13 | Outpatient (CLI) | payer MEDICARE ==
[~2022-01-13] MED LIST changes: -NS 1,000 ML IV ONE
[2022-01-13 16:44] LABS: INR 2.3; PROTHROMBIN TIME 25.7 SECONDS (12.7-14.5)
[2022-01-13 16:50] LABS: BLOOD UREA NITROGEN 14 MG/DL (7-18); CALCIUM LEVEL 9.4 MG/DL (8.8-10.2); CARBON DIOXIDE LEVEL 27 MEQ/L (21-32); CHLORIDE LEVEL 105 MEQ/L (98-107); CREATININE FOR GFR 1.11 MG/DL (0.70-1.30); GLOMERULAR FILTRATION RATE > 60.0 (>49); GLUCOSE, FASTING 104 MG/DL (70-100); POTASSIUM SERUM 3.9 MEQ/L (3.5-5.1); SODIUM LEVEL 141 MEQ/L (136-145)
== END ==
LOC: M WUC 13:24
PROVIDERS: ATTEND Student in an Organized Health Care Education/Training Program
DX: Z51.81 Encounter for therapeutic drug level monitoring (principal); K74.60 Unspecified cirrhosis of liver; Z79.01 Long term (current) use of anticoagulants

== ENCOUNTER → 2022-01-13 | Outpatient (CLI) | payer MEDICARE ==
[2022-01-13 16:53] LABS: BLOOD UREA NITROGEN 13 MG/DL (7-18); GLOMERULAR FILTRATION RATE > 60.0 (>49)
== END ==
LOC: M WUC 13:21
PROVIDERS: ATTEND Internal Medicine Gastroenterology
DX: C21.1 Malignant neoplasm of anal canal (principal); D37.2 Neoplasm of uncertain behavior of small intestine; K74.60 Unspecified cirrhosis of liver; Z79.01 Long term (current) use of anticoagulants

== ENCOUNTER → 2022-01-22 | Outpatient (CLI) | payer MEDICARE ==
[~2022-01-22] MED LIST changes: +GLUCAGON INJ 1MG VIAL As Ordered ONE; +ISOVUE-370 76% 100ML VIAL As Ordered ONE; +NEULUMEX 0.1% SUSPENSION 450ML BOTTLE (FORMERLY VOLUMEN) As Ordered ONE; +TOUJ1.2I SQ
== END ==
LOC: M RAD 09:53
PROVIDERS: ATTEND Internal Medicine Gastroenterology
DX: C21.1 Malignant neoplasm of anal canal (principal); D37.2 Neoplasm of uncertain behavior of small intestine; R16.2 Hepatomegaly with splenomegaly, not elsewhere classified; R59.0 Localized enlarged lymph nodes; N28.89 Other specified disorders of kidney and ureter; K86.89 Other specified diseases of pancreas; N28.1 Cyst of kidney, acquired
CPT/HCPCS: 74177; J1610; Q9967

== ENCOUNTER → 2022-01-26 | Outpatient (CLI) | payer MEDICARE ==
[~2022-01-26] MED LIST changes: +FERR325T81 PO; -GLUCAGON INJ 1MG VIAL As Ordered ONE; -ISOVUE-370 76% 100ML VIAL As Ordered ONE; -NEULUMEX 0.1% SUSPENSION 450ML BOTTLE (FORMERLY VOLUMEN) As Ordered ONE; +STEL90IN SC
== END ==
LOC: M ONCR 13:07
PROVIDERS: ATTEND General Practice
DX: C21.0 Malignant neoplasm of anus, unspecified (principal); K74.60 Unspecified cirrhosis of liver; F17.210 Nicotine dependence, cigarettes, uncomplicated; Z88.8 Allergy status to other drugs, medicaments and biological substances; Z79.01 Long term (current) use of anticoagulants; Z79.4 Long term (current) use of insulin; Z79.891 Long term (current) use of opiate analgesic; Z79.899 Other long term (current) drug therapy

== ENCOUNTER → 2022-01-28 | Outpatient (CLI) | payer MEDICARE ==
[~2022-01-28] MED LIST changes: +OXYC-517 PO
[2022-01-28 20:40] LABS: INR 2.26; PROTHROMBIN TIME 25.4 SECONDS (12.7-14.5)
[2022-01-28 20:41] LABS: PARTIAL THROMBOPLASTIN TIME 41.9 SECONDS (25.9-37.0)
[2022-01-28 20:55] LABS: ALBUMIN 3.3 GM/DL (3.2-5.2); ALT/SGPT 30 U/L (12-78); BILIRUBIN,TOTAL 0.7 MG/DL (0.2-1.0); BLOOD UREA NITROGEN 12 MG/DL (7-18); CALCIUM LEVEL 9.9 MG/DL (8.8-10.2); CARBON DIOXIDE LEVEL 26 MEQ/L (21-32); CHLORIDE LEVEL 104 MEQ/L (98-107); CREATININE FOR GFR 1.27 MG/DL (0.70-1.30); GLOMERULAR FILTRATION RATE > 60.0 (>49); GLUCOSE, FASTING 106 MG/DL (70-100); IRON (FE) 49 UG/DL (65-175); POTASSIUM SERUM 4.2 MEQ/L (3.5-5.1); SODIUM LEVEL 140 MEQ/L (136-145)
== END ==
LOC: M WUC 15:06
PROVIDERS: ATTEND Internal Medicine Medical Oncology
DX: C21.0 Malignant neoplasm of anus, unspecified (principal); Z51.81 Encounter for therapeutic drug level monitoring; Z79.01 Long term (current) use of anticoagulants

== ENCOUNTER → 2022-01-28 | Outpatient (CLI) | payer MEDICARE ==
[2022-01-28 20:30] LABS: BASO % 0.3 % (0.0-1.0); EOS # 0.1 10^3/uL (0.0-0.5); EOS % 0.7 % (0.0-3.0); HEMATOCRIT 42.3 % (42.0-52.0); HEMOGLOBIN 13.3 g/dl (13.5-17.5); LYMPH % 13.7 % (24.0-44.0); MEAN CORPUSCULAR HEMOGLOBIN 28.5 pg (27.0-33.0); MEAN CORPUSCULAR HGB CONC 31.4 g/dl (32.0-36.5); MEAN CORPUSCULAR VOLUME 90.6 fl (80.0-96.0); MONO # 0.6 10^3/uL (0.0-0.8); MONO % 9.2 % (2.0-8.0); NEUTROPHILS # 5.2 10^3/uL (1.5-8.5); NEUTROPHILS % 75.4 % (36.0-66.0); PLATELET COUNT, AUTOMATED 160 10^3/uL (150-450); RED BLOOD COUNT 4.67 10^6/uL (4.30-6.10); WHITE BLOOD COUNT 6.9 10^3/uL (4.0-10.0)
[2022-01-28 20:57] LABS: ALBUMIN 3.4 GM/DL (3.2-5.2); BILIRUBIN,TOTAL 0.7 MG/DL (0.2-1.0); CALCIUM LEVEL 9.9 MG/DL (8.8-10.2); CREATININE FOR GFR 1.3 MG/DL (0.70-1.30); GLOMERULAR FILTRATION RATE 59.9 (>49); POTASSIUM SERUM 4.1 MEQ/L (3.5-5.1)
[2022-01-28 23:32] LABS: CLOSTRIDIUM DIFFICILE PCR POSITIVE (NEGATIVE)
[2022-01-29 12:29] LABS: CA19-9 TUMOR MARKER,CARBOHYDRA 11.3 U/ML (<35.0)
[2022-02-04 03:07] LABS: ALPHA 1 ANTITRYPSIN 134 mg/dL (101-187); PANCREATIC ELASTASE STOOL >500 (>200)
== END ==
LOC: M WUC 15:03
PROVIDERS: ATTEND Internal Medicine Gastroenterology
DX: K74.60 Unspecified cirrhosis of liver (principal); D41.01 Neoplasm of uncertain behavior of right kidney; R19.7 Diarrhea, unspecified

== ENCOUNTER → 2022-01-28 | Outpatient (CLI) | payer MEDICARE ==
[2022-01-28 20:41] LABS: INR 2.29; PROTHROMBIN TIME 25.6 SECONDS (12.7-14.5)
== END ==
LOC: M WUC 15:09
PROVIDERS: ATTEND Student in an Organized Health Care Education/Training Program
DX: Z51.81 Encounter for therapeutic drug level monitoring (principal); Z79.01 Long term (current) use of anticoagulants

== ENCOUNTER → 2022-02-07 | Outpatient (CLI) | payer MEDICARE | LOC: M LABSMTC 11:56 | PROVIDERS: ATTEND Anesthesiology | DX: Z01.812 Encounter for preprocedural laboratory examination (principal); Z20.822 Contact with and (suspected) exposure to COVID-19 ==

== ENCOUNTER → 2022-02-08 | Outpatient (CLI) | payer MEDICARE ==
[2022-02-08 11:00] VITALS: BP 106/56
[2022-02-08 12:00] LABS: APPEARANCE, BODY FLUID HAZY (CLEAR); ASCITES FL COLOR YELLOW (COLORLESS); SOURCE, BODY FLUID ASCITES
[2022-02-08 12:37] LABS: SOURCE, BODY FLUID TOT PROTEIN ASCITES; TOTAL PROTEIN, BODY FLUID 2.4 G/DL (NOT ESTABLISHED)
== END ==
LOC: M IRPRO 10:00
PROVIDERS: ATTEND Specialist
DX: R18.8 Other ascites (principal)

== ENCOUNTER → 2022-02-18 | Outpatient (CLI) | payer MEDICARE | LOC: M PLARAD 09:50 | PROVIDERS: ATTEND General Practice | DX: C21.0 Malignant neoplasm of anus, unspecified (principal); Z53.9 Procedure and treatment not carried out, unspecified reason ==

== ENCOUNTER → 2022-03-01 | Outpatient (CLI) | payer MEDICARE | LOC: M PLARAD 08:23 | PROVIDERS: ATTEND General Practice | DX: C21.0 Malignant neoplasm of anus, unspecified (principal); R18.8 Other ascites; R91.8 Other nonspecific abnormal finding of lung field; R93.7 Abnormal findings on diagnostic imaging of other parts of musculoskeletal system | CPT/HCPCS: 78815; A9552 ==

== ENCOUNTER 2022-03-09 07:18 | Outpatient (RCR) | payer MEDICARE ==
[2022-03-09] MEDS ORDERED: LIDO1CRE2 TOP (15:10)
[2022-03-11] MEDS ORDERED: CARV25TA (15:40)
[2022-03-11] MEDS ORDERED: LOVE1INJ SC (19:16)
== END 2022-03-10 ==
LOC: M ONCR 07:18
PROVIDERS: ATTEND General Practice
DX: C21.0 Malignant neoplasm of anus, unspecified (principal)

== ENCOUNTER → 2022-03-11 | Outpatient (CLI) | payer MEDICARE ==
[~2022-03-11] MED LIST changes: +CARV25TA; +LIDO1CRE2 TOP; +LOVE1INJ SC
[2022-03-11 13:13] VITALS: BP 132/62
[2022-03-11 13:19] VITALS: BP 132/64
[2022-03-11 13:30] VITALS: BP 132/63
[2022-03-11 13:37] VITALS: BP 134/67
== END ==
LOC: M IRPRO 11:59
PROVIDERS: ATTEND Internal Medicine Gastroenterology
DX: R18.8 Other ascites (principal); K74.60 Unspecified cirrhosis of liver
CPT/HCPCS: 49083; 96365; P9047

== ENCOUNTER → 2022-03-17 | Outpatient (CLI) | payer MEDICARE | LOC: M LABSMTC 11:44 | PROVIDERS: ATTEND Anesthesiology | DX: Z01.812 Encounter for preprocedural laboratory examination (principal); Z11.52 Encounter for screening for COVID-19 ==

== ENCOUNTER → 2022-03-19 | Outpatient (CLI) | payer MEDICARE ==
[~2022-03-19] MED LIST changes: +LIDOCAINE 1% MDV 20ML VIAL As Ordered ONE; +MIDAZOLAM INJ 2MG/2ML VIAL (J2250 PER 1MG) As Ordered ONE; +NS 1,000 ML IV SCH; +VANCOMYCIN HCL 1,000 MG, VIAL MATE ADAPTER 1 EACH in NS 250 ML IV ONE; +fentaNYL 100 MCG/2 ML INJECTION As Ordered ONE
[2022-03-19 09:38] VITALS: BP 139/67
[2022-03-19 10:47] LABS: INR 1.55
[2022-03-19 10:48] LABS: PARTIAL THROMBOPLASTIN TIME 35.3 SECONDS (25.9-37.0)
== END ==
LOC: M IRPRO 09:26
PROVIDERS: ATTEND Internal Medicine Medical Oncology
DX: C21.0 Malignant neoplasm of anus, unspecified (principal); Z79.01 Long term (current) use of anticoagulants

== ENCOUNTER → 2022-03-23 | Outpatient (CLI) | payer MEDICARE ==
[~2022-03-23] MED LIST changes: +LIDO4CRE4 TOP; -MIDAZOLAM INJ 2MG/2ML VIAL (J2250 PER 1MG) As Ordered ONE; -NS 1,000 ML IV SCH; +ONDA-84 PO; +PROC10TA5 PO; -VANCOMYCIN HCL 1,000 MG, VIAL MATE ADAPTER 1 EACH in NS 250 ML IV ONE; -fentaNYL 100 MCG/2 ML INJECTION As Ordered ONE
[2022-03-23 12:24] VITALS: BP 113/66
== END ==
LOC: M IRPRO 11:27
PROVIDERS: ATTEND Internal Medicine Gastroenterology
DX: R18.8 Other ascites (principal); K74.60 Unspecified cirrhosis of liver
CPT/HCPCS: 49083; 76937; C1751; C1769; P9047; Q9967

== ENCOUNTER → 2022-03-23 | Outpatient (CLI) | payer MEDICARE ==
[~2022-03-23] MED LIST changes: +ISOVUE-300 61% 50ML VIAL As Ordered ONE
[2022-03-23 14:05] VITALS: BP 120/68
== END ==
LOC: M IRPRO 11:21
PROVIDERS: ATTEND Specialist
DX: C18.9 Malignant neoplasm of colon, unspecified (principal)

== ENCOUNTER → 2022-04-09 | Outpatient (RCR) | payer MEDICARE ==
[~2022-04-09] MED LIST changes: -ISOVUE-300 61% 50ML VIAL As Ordered ONE; +LIDO1PAD TOP; -LIDOCAINE 1% MDV 20ML VIAL As Ordered ONE
== END ==
LOC: M ONCR 03-11 15:07
PROVIDERS: ATTEND General Practice
DX: C34.32 Malignant neoplasm of lower lobe, left bronchus or lung (principal)

== ENCOUNTER → 2022-04-14 | Outpatient (CLI) | payer MEDICARE ==
[~2022-04-14] MED LIST changes: +LIDOCAINE 1% MDV 20ML VIAL As Ordered ONE
[2022-04-14 10:20] VITALS: BP 117/66
[2022-04-14 10:37] VITALS: BP 117/57
[2022-04-14 10:47] VITALS: BP 120/55
[2022-04-14 11:00] VITALS: BP 119/57
== END ==
LOC: M IRPRO 09:38
PROVIDERS: ATTEND Internal Medicine Gastroenterology
DX: R18.8 Other ascites (principal)
CPT/HCPCS: 49083; 96365; P9047

== ENCOUNTER → 2022-05-07 | Outpatient (CLI) | payer MEDICARE ==
[~2022-05-07] MED LIST changes: -LIDOCAINE 1% MDV 20ML VIAL As Ordered ONE
[2022-05-07 11:13] VITALS: BP 110/65
[2022-05-07 11:23] VITALS: BP 118/57
[2022-05-07 11:42] VITALS: BP 121/59
[2022-05-07 11:45] VITALS: BP 129/58
[2022-05-07 11:58] VITALS: BP 116/57
[2022-05-07 12:11] VITALS: BP_SYST 102; BP_DIAS 54; BP_DIAS 70
== END ==
LOC: M IRPRO 09:51
PROVIDERS: ATTEND Internal Medicine Gastroenterology
DX: R18.8 Other ascites (principal); K74.60 Unspecified cirrhosis of liver

== ENCOUNTER → 2022-05-07 | Outpatient (CLI) | payer MEDICARE ==
[2022-05-07 17:43] LABS: INR 2.91; PROTHROMBIN TIME 30.9 SECONDS (12.5-14.5)
== END ==
LOC: M WUC 12:53
PROVIDERS: ATTEND Student in an Organized Health Care Education/Training Program
DX: E11.21 Type 2 diabetes mellitus with diabetic nephropathy (principal); Z79.01 Long term (current) use of anticoagulants; R18.8 Other ascites; K74.60 Unspecified cirrhosis of liver
CPT/HCPCS: 36415; 83036; 85610; 96365; P9047

== ENCOUNTER → 2022-05-10 | Outpatient (RCR) | payer MEDICARE | LOC: M ONCR 04-12 13:58 | PROVIDERS: ATTEND General Practice | DX: C21.0 Malignant neoplasm of anus, unspecified (principal) ==

== ENCOUNTER → 2022-05-25 | Outpatient (CLI) | payer MEDICARE | LOC: M ONCR 11:17 | PROVIDERS: ATTEND General Practice | DX: C21.0 Malignant neoplasm of anus, unspecified (principal); Z92.21 Personal history of antineoplastic chemotherapy; Z92.3 Personal history of irradiation; K74.60 Unspecified cirrhosis of liver; R18.8 Other ascites ==

== ENCOUNTER → 2022-05-25 | Outpatient (CLI) | payer MEDICARE ==
[~2022-05-25] MED LIST changes: +LIDOCAINE 1% MDV 20ML VIAL As Ordered ONE
[2022-05-25 14:07] VITALS: BP 98/51
[2022-05-25 14:17] VITALS: BP 104/57
[2022-05-25 14:25] VITALS: BP 105/51
[2022-05-25 14:31] VITALS: BP 99/54
== END ==
LOC: M IRPRO 12:50
PROVIDERS: ATTEND Internal Medicine Gastroenterology
DX: R18.8 Other ascites (principal); K74.60 Unspecified cirrhosis of liver
CPT/HCPCS: 49083; 96365; P9047

== ENCOUNTER → 2022-06-01 | Outpatient (REF) | payer MEDICARE ==
[~2022-06-01] MED LIST changes: -LIDOCAINE 1% MDV 20ML VIAL As Ordered ONE
[2022-06-01 18:50] LABS: PROTHROMBIN TIME 47.6 SECONDS (12.5-14.5)
[2022-06-01 19:32] LABS: INR 5.06
== END ==
LOC: M WUC 15:09
PROVIDERS: ATTEND Student in an Organized Health Care Education/Training Program
DX: Z51.81 Encounter for therapeutic drug level monitoring (principal)

== ENCOUNTER → 2022-06-08 | Outpatient (CLI) | payer MEDICARE ==
[2022-06-08 13:44] LABS: INR 3.44; PROTHROMBIN TIME 35.1 SECONDS (12.5-14.5)
== END ==
LOC: M IRPRO 12:19
PROVIDERS: ATTEND Internal Medicine Gastroenterology
DX: R18.8 Other ascites (principal); K74.60 Unspecified cirrhosis of liver

== ENCOUNTER → 2022-06-09 | Outpatient (REF) | payer MEDICARE ==
[2022-06-09 17:32] LABS: INR 2.86; PROTHROMBIN TIME 30.4 SECONDS (12.5-14.5)
== END ==
LOC: M LABWUC 16:41
PROVIDERS: ATTEND Student in an Organized Health Care Education/Training Program
DX: Z51.81 Encounter for therapeutic drug level monitoring (principal); Z79.01 Long term (current) use of anticoagulants

== ENCOUNTER → 2022-06-10 | Outpatient (CLI) | payer MEDICARE ==
[2022-06-10 15:08] VITALS: BP 132/68
[2022-06-10 15:17] VITALS: BP 129/71
[2022-06-10 15:19] VITALS: BP 129/71
[2022-06-10 15:24] VITALS: BP 124/72
[2022-06-10 15:34] VITALS: BP 138/66
[2022-06-10 15:45] VITALS: BP 146/71
== END ==
LOC: M IRPRO 14:26
PROVIDERS: ATTEND Internal Medicine Gastroenterology
DX: R18.8 Other ascites (principal); K74.60 Unspecified cirrhosis of liver
CPT/HCPCS: 49083; 96365; P9047

== ENCOUNTER → 2022-06-10 | Outpatient (CLI) | payer MEDICARE ==
[~2022-06-10] MED LIST changes: -CARV25TA; +CARV25TA PO; +JANT2TAB PO; +JARD1TAB3 PO; +MAGN400T2 PO; +MELA10CA PO; +OXYC10TA12 PO; +SPIR100T3 PO
[2022-06-10 13:05] LABS: INR 2.38; PROTHROMBIN TIME 26.4 SECONDS (12.5-14.5)
== END ==
LOC: M WUC 10:32
PROVIDERS: ATTEND Student in an Organized Health Care Education/Training Program
DX: Z51.81 Encounter for therapeutic drug level monitoring (principal); Z79.01 Long term (current) use of anticoagulants

== ENCOUNTER 2022-06-23 12:12 | Inpatient (IN) | payer MEDICARE ==
[2022-06-23] VITALS (14 sets, daily range): BP systolic 82–106; BP diastolic 38–73
[~2022-06-23] VITALS: Ht 171.4 cm; Wt 99.8 kg
[~2022-06-23 12:12] MED LIST changes: -APRE30TA3 PO; -CORE25TA PO; -JANT2TAB PO; -JARD1TAB3 PO; -MAGN400T2 PO; -MELA10CA PO; -MM S100C PO; +OTEZ1TAB3 PO; -OXYC10TA12 PO; -SPIR100T3 PO
[2022-06-23 13:26] LABS: BASO % 0.4 % (0.0-1.0); EOS # 0.1 10^3/uL (0.0-0.5); EOS % 2.4 % (0.0-3.0); HEMATOCRIT 34.9 % (42.0-52.0); HEMOGLOBIN 10.9 g/dl (13.5-17.5); LYMPH # 0.3 10^3/uL (1.5-5.0); LYMPH % 5.5 % (24.0-44.0); MEAN CORPUSCULAR HEMOGLOBIN 30.6 pg (27.0-33.0); MEAN CORPUSCULAR HGB CONC 31.2 g/dl (32.0-36.5); MONO # 0.4 10^3/uL (0.0-0.8); MONO % 8.4 % (2.0-8.0); NEUTROPHILS # 4.2 10^3/uL (1.5-8.5); NEUTROPHILS % 82.3 % (36.0-66.0); RED BLOOD COUNT 3.56 10^6/uL (4.30-6.10); WHITE BLOOD COUNT 5.1 10^3/uL (4.0-10.0)
[2022-06-23 13:29] LABS: PLATELET COUNT, AUTOMATED 99 10^3/uL (150-450)
[2022-06-23 13:41] LABS: PROTHROMBIN TIME 60.2 SECONDS (12.5-14.5)
[2022-06-23 13:42] LABS: PARTIAL THROMBOPLASTIN TIME 51.7 SECONDS (24.8-34.2)
[2022-06-23 13:45] LABS: RSV AMPLIFICATION NEGATIVE (NEGATIVE)
[2022-06-23] MEDS ORDERED: NS 1,000 ML IV ONE ×2 (13:45→15:10)
[2022-06-23 13:56] LABS: INR 6.84
[2022-06-23 14:58] LABS: ALBUMIN 2.4 G/DL (3.2-5.2); ALKALINE PHOSPHATASE 50 U/L (46-116); ALT/SGPT 28 U/L (7.0-40); AST/SGOT 32 U/L (<34); BILIRUBIN,DIRECT 0.2 MG/DL (<0.4); BILIRUBIN,TOTAL 0.3 MG/DL (0.3-1.2); BLOOD UREA NITROGEN 55 MG/DL (9-23); CALCIUM LEVEL 7.7 MG/DL (8.3-10.6); CARBON DIOXIDE LEVEL 23 MMOL/L (20-31); CHLORIDE LEVEL 106 MMOL/L (98-107); CK-MB VALUE MASS < 1.0 NG/ML (<3.6); CPK CREATINE PHOSPHOKINASE 36 U/L (46-171); CREATININE FOR GFR 3.46 MG/DL (0.70-1.30); GLOMERULAR FILTRATION RATE 19.4 (>49); GLUCOSE, FASTING 145 MG/DL (74-106); LIPASE 31 U/L (12-53); MB/CK RELATIVE INDEX 2.77 (< OR =4); POTASSIUM SERUM 5.8 MMOL/L (3.5-5.1); SODIUM LEVEL 135 MMOL/L (136-145); TOTAL PROTEIN 5.2 G/DL (5.7-8.2)
[2022-06-23] MEDS ORDERED: DEXTROSE 50% 50 ML SYRINGE IV STA ×2 (15:08→16:31)
[2022-06-23] MEDS ORDERED: CALCIUM GLUCONATE 1,000 MG in D5W MINI-BAG PLUS 100 ML IV ONE (15:10)
[2022-06-23] MEDS ORDERED: HumuLIN R (REGULAR) INSULIN (NovoLIN R) **100U/ML** PER UNIT IV ONE (15:10)
[2022-06-23] MEDS ORDERED: LOSA100T45 PO (16:26)
[2022-06-23] MEDS ORDERED: WARF4TAB52 PO (16:26)
[2022-06-23] MEDS ORDERED: SPIR100T3 PO (16:26)
[2022-06-23] MEDS ORDERED: MELA10CA PO (16:26)
[2022-06-23] MEDS ORDERED: OXYC10TA12 PO (16:27)
[2022-06-23] MEDS ORDERED: JARD1TAB3 PO (16:28)
[2022-06-23] MEDS ORDERED: HOME MED LIST COMPLETE! XX SCH (16:30)
[2022-06-23] MEDS ORDERED: PATIROMER SORBITEX CALCIUM 8.4 GM POWDER PACKET (VELTASSA) PO SCH (17:00)
[2022-06-23] MEDS ORDERED: GLUCAGON INJ 1MG VIAL SC PRN (17:20)
[2022-06-23] MEDS ORDERED: GLUCOSE 4GM CHEW TABLET PO PRN (17:20)
[2022-06-23] MEDS: INSULIN LISPRO (NovoLOG) PER UNIT SC SCH ×2 (17:30→20:28)
[2022-06-23 18:17] LABS: CALCIUM LEVEL 7.9 MG/DL (8.3-10.6); CREATININE FOR GFR 3.5 MG/DL (0.70-1.30); GLOMERULAR FILTRATION RATE 19.1 (>49); POTASSIUM SERUM 5.2 MMOL/L (3.5-5.1)
[2022-06-23] MEDS: cefTRIAXone SOD 2 GM in D5W MINI-BAG PLUS 50 ML IV SCH (20:50)
[2022-06-23] MEDS: metroNIDAZOLE 500 MG in IV 1 EA IV SCH (20:50)
[2022-06-23] MEDS ORDERED: LEVEMIR (INSULIN DETEMIR) 1 UNITS/0.01ML SC SCH (21:00)
[2022-06-24] VITALS (49 sets, daily range): BP systolic 75–160; BP diastolic 44–77
[2022-06-24 00:33] LABS: CALCIUM LEVEL 7.6 MG/DL (8.3-10.6); CREATININE FOR GFR 3.47 MG/DL (0.70-1.30); GLOMERULAR FILTRATION RATE 19.3 (>49); POTASSIUM SERUM 5.8 MMOL/L (3.5-5.1)
[2022-06-24] MEDS: DEXTROSE 50% 50 ML SYRINGE IV PRN ×2 (00:48→17:14)
[2022-06-24] MEDS: metroNIDAZOLE 500 MG in IV 1 EA IV SCH (04:07)
[2022-06-24 05:37] LABS: BASO % 0.1 % (0.0-1.0); EOS # 0.2 10^3/uL (0.0-0.5); EOS % 2.3 % (0.0-3.0); HEMATOCRIT 35.6 % (42.0-52.0); HEMOGLOBIN 11.1 g/dl (13.5-17.5); LYMPH # 0.3 10^3/uL (1.5-5.0); LYMPH % 4.3 % (24.0-44.0); MEAN CORPUSCULAR HEMOGLOBIN 30.7 pg (27.0-33.0); MEAN CORPUSCULAR HGB CONC 31.2 g/dl (32.0-36.5); MEAN CORPUSCULAR VOLUME 98.6 fl (80.0-96.0); MONO # 0.7 10^3/uL (0.0-0.8); MONO % 9.7 % (2.0-8.0); NEUTROPHILS # 5.6 10^3/uL (1.5-8.5); NEUTROPHILS % 82.9 % (36.0-66.0); PLATELET COUNT, AUTOMATED 111 10^3/uL (150-450); RED BLOOD COUNT 3.61 10^6/uL (4.30-6.10); WHITE BLOOD COUNT 6.8 10^3/uL (4.0-10.0)
[2022-06-24 05:47] LABS: PROTHROMBIN TIME 48.4 SECONDS (12.5-14.5)
[2022-06-24 05:51] LABS: INR 5.17
[2022-06-24 05:52] LABS: MAGNESIUM LEVEL 1.8 MG/DL (1.8-2.4)
[2022-06-24 05:55] LABS: ALBUMIN 2.3 G/DL (3.2-5.2); CREATININE FOR GFR 3.51 MG/DL (0.70-1.30); GLOMERULAR FILTRATION RATE 19.1 (>49); PHOSPHORUS LEVEL 7.3 MG/DL (2.4-5.1)
[2022-06-24] MEDS ORDERED: PATIROMER SORBITEX CALCIUM 8.4 GM POWDER PACKET (VELTASSA) PO ONE ×5 (07:00→20:00)
[2022-06-24] MEDS ORDERED: BISACODYL 10 MG SUPP PR ONE (07:00)
[2022-06-24] MEDS: INSULIN LISPRO (NovoLOG) PER UNIT SC SCH ×4 (07:02→20:37)
[2022-06-24] MEDS: PANTOPRAZOLE 40MG VIAL IV SCH (08:32)
[2022-06-24] MEDS ORDERED: PROTHROMBIN COMPLEX CONCEN IV ONE (10:00)
[2022-06-24] MEDS ORDERED: PHYTONADIONE 5 MG TAB PO ONE (10:00)
[2022-06-24] MEDS ORDERED: MIDAZOLAM INJ 2MG/2ML VIAL (J2250 PER 1MG) IV ONE (12:05)
[2022-06-24] MEDS: MIDODRINE 5 MG TAB PO SCH ×2 (13:11→16:00)
[2022-06-24 14:04] LABS: INR 1.46
[2022-06-24 16:14] LABS: APPEARANCE, BODY FLUID CLEAR (CLEAR); ASCITES FL COLOR PALE YELLOW (COLORLESS); SOURCE, BODY FLUID ASCITES
[2022-06-24 16:27] LABS: SOURCE, BODY FLUID ALBUMIN ASCITES
[2022-06-24 16:28] LABS: SPEC. GRAVITY BODY FLUIDS 1.016 (NOT ESTABLISHED)
[2022-06-24 16:33] LABS: SOURCE, BODY FLUID GLUCOSE ASCITES
[2022-06-24] MEDS: OCTREOTIDE ACETATE 100MCG/ML VIAL **SC ADMINISTRATION ONLY SC SCH ×2 (16:34→22:25)
[2022-06-24 16:36] LABS: SOURCE, BODY FLUID TOT PROTEIN ASCITES; TOTAL PROTEIN, BODY FLUID < 2.0 G/DL (NOT ESTABLISHED)
[2022-06-24] MEDS ORDERED: D5W/0.9% SODIUM CHLORIDE 1,000 ML IV SCH (17:25)
[2022-06-24] MEDS: cefTRIAXone SOD 2 GM in D5W MINI-BAG PLUS 50 ML IV SCH (20:46)
[2022-06-25] VITALS (21 sets, daily range): BP systolic 115–165; BP diastolic 55–79
[2022-06-25 04:47] LABS: BASO % 0.4 % (0.0-1.0); EOS # 0.1 10^3/uL (0.0-0.5); EOS % 3.1 % (0.0-3.0); HEMATOCRIT 34.7 % (42.0-52.0); HEMOGLOBIN 11.2 g/dl (13.5-17.5); LYMPH # 0.3 10^3/uL (1.5-5.0); LYMPH % 5.5 % (24.0-44.0); MEAN CORPUSCULAR HEMOGLOBIN 30.9 pg (27.0-33.0); MEAN CORPUSCULAR HGB CONC 32.3 g/dl (32.0-36.5); MEAN CORPUSCULAR VOLUME 95.6 fl (80.0-96.0); MONO # 0.5 10^3/uL (0.0-0.8); MONO % 10.4 % (2.0-8.0); NEUTROPHILS # 3.6 10^3/uL (1.5-8.5); NEUTROPHILS % 79.7 % (36.0-66.0); RED BLOOD COUNT 3.63 10^6/uL (4.30-6.10); WHITE BLOOD COUNT 4.5 10^3/uL (4.0-10.0)
[2022-06-25 04:55] LABS: MAGNESIUM LEVEL 1.7 MG/DL (1.8-2.4)
[2022-06-25] MEDS: OCTREOTIDE ACETATE 100MCG/ML VIAL **SC ADMINISTRATION ONLY SC SCH (04:59)
[2022-06-25 05:00] LABS: INR 1.54; PROTHROMBIN TIME 18.8 SECONDS (12.5-14.5)
[2022-06-25 05:02] LABS: ALBUMIN 2.8 G/DL (3.2-5.2); CALCIUM LEVEL 8.2 MG/DL (8.3-10.6); CREATININE FOR GFR 1.78 MG/DL (0.70-1.30); GLOMERULAR FILTRATION RATE 41.7 (>49); PHOSPHORUS LEVEL 4.2 MG/DL (2.4-5.1)
[2022-06-25 05:10] LABS: PLATELET COUNT, AUTOMATED 77 10^3/uL (150-450)
[2022-06-25] MEDS ORDERED: HumuLIN R (REGULAR) INSULIN (NovoLIN R) **100U/ML** PER UNIT IV STA (05:30)
[2022-06-25] MEDS ORDERED: DEXTROSE 50% 50 ML SYRINGE IV STA (05:30)
[2022-06-25] MEDS ORDERED: FLEET ENEMA PR ONE (05:30)
[2022-06-25] MEDS: INSULIN LISPRO (NovoLOG) PER UNIT SC SCH ×4 (07:30→20:53)
[2022-06-25] MEDS: MIDODRINE 5 MG TAB PO SCH (08:00)
[2022-06-25] MEDS ORDERED: GABAPENTIN 300 MG CAP PO SCH (09:00)
[2022-06-25] MEDS ORDERED: NS 1,000 ML IV ONE (09:15)
[2022-06-25] MEDS: PANTOPRAZOLE 40MG VIAL IV SCH (09:45)
[2022-06-25] MEDS ORDERED: metOLazone 5 MG TAB PO ONE (10:00)
[2022-06-25] MEDS ORDERED: FUROSEMIDE 100MG/10ML VIAL (J1940) IV ONE (10:00)
[2022-06-25] MEDS: PATIROMER SORBITEX CALCIUM 8.4 GM POWDER PACKET (VELTASSA) PO SCH ×3 (10:56→20:53)
[2022-06-25] MEDS ORDERED: MAGNESIUM OXIDE 400MG TAB (MAG-OX) PO ONE (12:00)
[2022-06-25 12:37] LABS: BILIRUBIN,DIRECT 0.5 MG/DL (<0.4)
[2022-06-25 12:38] LABS: ALBUMIN 3.1 G/DL (3.2-5.2); BILIRUBIN,TOTAL 0.9 MG/DL (0.3-1.2); TOTAL PROTEIN 5.5 G/DL (5.7-8.2)
[2022-06-25 15:51] LABS: CALCIUM LEVEL 8.7 MG/DL (8.3-10.6); CREATININE FOR GFR 1.68 MG/DL (0.70-1.30); GLOMERULAR FILTRATION RATE 44.6 (>49); POTASSIUM SERUM 5.3 MMOL/L (3.5-5.1)
[2022-06-25] MEDS: cefTRIAXone SOD 2 GM in D5W MINI-BAG PLUS 50 ML IV SCH (20:53)
[2022-06-25] MEDS: GABAPENTIN 400MG CAP PO SCH (20:53)
[2022-06-26] VITALS: BP 134/61
[2022-06-26 04:00] VITALS: BP 142/65
[2022-06-26 06:28] LABS: BASO % 0.6 % (0.0-1.0); EOS # 0.1 10^3/uL (0.0-0.5); EOS % 2.6 % (0.0-3.0); HEMOGLOBIN 11.8 g/dl (13.5-17.5); LYMPH # 0.2 10^3/uL (1.5-5.0); LYMPH % 4.3 % (24.0-44.0); MEAN CORPUSCULAR HEMOGLOBIN 31.1 pg (27.0-33.0); MEAN CORPUSCULAR HGB CONC 32.8 g/dl (32.0-36.5); MONO # 0.5 10^3/uL (0.0-0.8); MONO % 9.5 % (2.0-8.0); NEUTROPHILS # 4.4 10^3/uL (1.5-8.5); NEUTROPHILS % 81.9 % (36.0-66.0); PLATELET COUNT, AUTOMATED 101 10^3/uL (150-450); RED BLOOD COUNT 3.79 10^6/uL (4.30-6.10); WHITE BLOOD COUNT 5.4 10^3/uL (4.0-10.0)
[2022-06-26 06:36] LABS: INR 1.33; PROTHROMBIN TIME 16.7 SECONDS (12.5-14.5)
[2022-06-26 06:48] LABS: MAGNESIUM LEVEL 1.6 MG/DL (1.8-2.4)
[2022-06-26 06:50] LABS: CALCIUM LEVEL 8.4 MG/DL (8.3-10.6); CREATININE FOR GFR 1.32 MG/DL (0.70-1.30); GLOMERULAR FILTRATION RATE 58.9 (>49); PHOSPHORUS LEVEL 3.1 MG/DL (2.4-5.1); POTASSIUM SERUM 5.1 MMOL/L (3.5-5.1)
[2022-06-26] MEDS: GABAPENTIN 400MG CAP PO SCH ×2 (07:39→12:51)
[2022-06-26] MEDS: INSULIN LISPRO (NovoLOG) PER UNIT SC SCH ×2 (07:40→11:59)
[2022-06-26] MEDS: PANTOPRAZOLE 40MG VIAL IV SCH (07:41)
[2022-06-26] MEDS ORDERED: MAG SULF 1GM/100ML (MAG RUN) 1 GM in IV 1 EA IV ONE (08:00)
[2022-06-26] MEDS ORDERED: MAGNESIUM OXIDE 400MG TAB (MAG-OX) PO SCH (09:00)
[2022-06-26] MEDS ORDERED: CARV25TA PO (12:17)
[2022-06-26] MEDS ORDERED: JANT2TAB PO (12:17)
[2022-06-26] MEDS ORDERED: TOUJ1.2I SC (12:18)
[2022-06-26] MEDS ORDERED: MAGN400T2 PO (12:18)
[2022-06-26] MEDS ORDERED: WARFARIN SOD 2MG TAB PO SCH (17:00)
== END 2022-06-26 13:03 | disposition home or self-care (01) | DRG 432 ==
LOC: M ED 12:12 → M ED INP 16:27 → ENRESERV 17:13 → M ICU 18:43
PROVIDERS: ADMIT Internal Medicine Pulmonary Disease; ATTEND Internal Medicine
PROC: 30233J1 Transfusion of Nonautologous Serum Albumin into Peripheral Vein, Percutaneous Approach (ICD-10-PCS; 2022-06-24)
PROC: 0W9G3ZZ Drainage of Peritoneal Cavity, Percutaneous Approach (ICD-10-PCS; principal; 2022-06-24 14:39)
DX: K74.60 Unspecified cirrhosis of liver (principal); K76.7 Hepatorenal syndrome; D66 Hereditary factor VIII deficiency; I50.32 Chronic diastolic (congestive) heart failure; E66.2 Morbid (severe) obesity with alveolar hypoventilation; N17.9 Acute kidney failure, unspecified; K76.6 Portal hypertension; R18.8 Other ascites; I13.0 Hypertensive heart and chronic kidney disease with heart failure and stage 1 through stage 4 chronic kidney disease, or unspecified chronic kidney disease; I85.00 Esophageal varices without bleeding; E11.51 Type 2 diabetes mellitus with diabetic peripheral angiopathy without gangrene; E61.1 Iron deficiency; E78.5 Hyperlipidemia, unspecified; I73.9 Peripheral vascular disease, unspecified; Z89.512 Acquired absence of left leg below knee; Z86.73 Personal history of transient ischemic attack (TIA), and cerebral infarction without residual deficits; K21.9 Gastro-esophageal reflux disease without esophagitis; L40.9 Psoriasis, unspecified; I27.20 Pulmonary hypertension, unspecified; F43.21 Adjustment disorder with depressed mood; Z90.49 Acquired absence of other specified parts of digestive tract; F17.200 Nicotine dependence, unspecified, uncomplicated; I95.9 Hypotension, unspecified; Z79.899 Other long term (current) drug therapy; Z20.822 Contact with and (suspected) exposure to COVID-19; N18.30 Chronic kidney disease, stage 3 unspecified; E11.22 Type 2 diabetes mellitus with diabetic chronic kidney disease; J44.9 Chronic obstructive pulmonary disease, unspecified; D64.9 Anemia, unspecified; N28.89 Other specified disorders of kidney and ureter; E87.70 Fluid overload, unspecified

== ENCOUNTER → 2022-06-23 | Outpatient (CLI) | payer MEDICARE ==
[~2022-06-23] MED LIST changes: +APRE30TA3 PO; +CORE25TA PO; +MM S100C PO; -OTEZ1TAB3 PO
[2022-06-23 11:51] LABS: INR 6.38
[2022-06-23 11:52] VITALS: BP 88/52
== END ==
LOC: M IRPRO 11:05
PROVIDERS: ATTEND Internal Medicine Gastroenterology
DX: K74.60 Unspecified cirrhosis of liver (principal); R18.8 Other ascites; Z79.01 Long term (current) use of anticoagulants

== ENCOUNTER → 2022-07-07 | Outpatient (CLI) | payer MEDICARE ==
[~2022-07-07] MED LIST changes: +JANT2TAB PO; +JARD1TAB3 PO; +MAGN400T2 PO; +MELA10CA PO; +OXYC10TA12 PO; +SPIR100T3 PO
[2022-07-07 13:38] LABS: INR 1.46
[2022-07-07 15:02] VITALS: BP 128/60
[2022-07-07 15:32] VITALS: BP 126/60
[2022-07-07 15:43] VITALS: BP 126/67
[2022-07-07 15:55] VITALS: BP 128/69
== END ==
LOC: M IRPRO 12:47
PROVIDERS: ATTEND Internal Medicine Gastroenterology
DX: R18.8 Other ascites (principal)
CPT/HCPCS: 49083; 85610; 96365; P9047

== ENCOUNTER → 2022-07-15 | Outpatient (CLI) | payer MEDICARE ==
[~2022-07-15] MED LIST changes: +APRE30TA3 PO; -OTEZ1TAB3 PO
[2022-07-15 12:02] LABS: INR 1.94; PARTIAL THROMBOPLASTIN TIME 32.9 SECONDS (24.8-34.2); PROTHROMBIN TIME 22.5 SECONDS (12.5-14.5)
[2022-07-15 12:53] VITALS: BP 111/55
[2022-07-15 13:05] VITALS: BP 111/55
[2022-07-15 13:16] VITALS: BP 125/59
[2022-07-15 13:26] VITALS: BP 126/57
== END ==
LOC: M IRPRO 11:19
PROVIDERS: ATTEND Internal Medicine Gastroenterology
DX: R18.8 Other ascites (principal); K74.60 Unspecified cirrhosis of liver
CPT/HCPCS: 36415; 49083; 85610; 85730; 96365; P9047

== ENCOUNTER → 2022-07-20 | Outpatient (REF) | payer MEDICARE ==
[2022-07-20 11:07] LABS: HEMATOCRIT 38.3 % (42.0-52.0); HEMOGLOBIN 12.3 g/dl (13.5-17.5); MEAN CORPUSCULAR HEMOGLOBIN 30.6 pg (27.0-33.0); MEAN CORPUSCULAR HGB CONC 32.1 g/dl (32.0-36.5); MEAN CORPUSCULAR VOLUME 95.3 fl (80.0-96.0); RED BLOOD COUNT 4.02 10^6/uL (4.30-6.10); WHITE BLOOD COUNT 6.1 10^3/uL (4.0-10.0)
[2022-07-20 11:08] LABS: PLATELET COUNT, AUTOMATED 99 10^3/uL (150-450)
[2022-07-20 11:19] LABS: INR 2.16; PROTHROMBIN TIME 24.5 SECONDS (12.5-14.5)
[2022-07-20 11:35] LABS: ALBUMIN 2.7 G/DL (3.2-5.2); BILIRUBIN,TOTAL 0.8 MG/DL (0.3-1.2); CALCIUM LEVEL 8.5 MG/DL (8.3-10.6); CREATININE FOR GFR 1.57 MG/DL (0.70-1.30); GLOMERULAR FILTRATION RATE 48.1 (>49); POTASSIUM SERUM 5.4 MMOL/L (3.5-5.1); TOTAL PROTEIN 5.2 G/DL (5.7-8.2)
== END ==
LOC: M LAB REF 10:44
PROVIDERS: ATTEND Nurse Practitioner Family
DX: K74.60 Unspecified cirrhosis of liver (principal); R18.8 Other ascites

== ENCOUNTER → 2022-07-27 | Outpatient (REF) | payer MEDICARE ==
[2022-07-27 11:27] LABS: ALBUMIN 2.9 G/DL (3.2-5.2); BILIRUBIN,TOTAL 0.6 MG/DL (0.3-1.2); CALCIUM LEVEL 8.5 MG/DL (8.3-10.6); CREATININE FOR GFR 1.85 MG/DL (0.70-1.30); GLOMERULAR FILTRATION RATE 39.8 (>49); POTASSIUM SERUM 4.9 MMOL/L (3.5-5.1); TOTAL PROTEIN 5.8 G/DL (5.7-8.2)
== END ==
LOC: M LAB REF 10:43
PROVIDERS: ATTEND Nurse Practitioner Family
DX: C21.0 Malignant neoplasm of anus, unspecified (principal); K74.60 Unspecified cirrhosis of liver; R18.8 Other ascites; I85.00 Esophageal varices without bleeding

== ENCOUNTER → 2022-07-28 | Outpatient (CLI) | payer MEDICARE ==
[~2022-07-28] MED LIST changes: +CORE25TA PO; +GASTROGRAFIN SOLUTION 30ML As Ordered ONE; +ISOVUE-370 76% 100ML VIAL As Ordered ONE; +MM S100C PO; +PHYT5TAB9 PO
== END ==
LOC: M RAD 09:11
PROVIDERS: ATTEND General Practice
DX: C21.0 Malignant neoplasm of anus, unspecified (principal); K44.9 Diaphragmatic hernia without obstruction or gangrene; K86.2 Cyst of pancreas; R16.1 Splenomegaly, not elsewhere classified; N28.89 Other specified disorders of kidney and ureter; N28.1 Cyst of kidney, acquired; M47.9 Spondylosis, unspecified; K74.60 Unspecified cirrhosis of liver; K76.6 Portal hypertension

== ENCOUNTER → 2022-07-28 | Outpatient (CLI) | payer MEDICARE ==
[~2022-07-28] MED LIST changes: -CORE25TA PO; -GASTROGRAFIN SOLUTION 30ML As Ordered ONE; -ISOVUE-370 76% 100ML VIAL As Ordered ONE; +LIDOCAINE 1% MDV 20ML VIAL As Ordered ONE; -MM S100C PO; -PHYT5TAB9 PO
[2022-07-28 12:00] VITALS: BP 120/76
[2022-07-28 12:16] VITALS: BP 139/93
[2022-07-28 12:51] VITALS: BP 123/58
== END ==
LOC: M IRPRO 09:12
PROVIDERS: ATTEND Nurse Practitioner Family
DX: R18.8 Other ascites (principal)
CPT/HCPCS: 49083; 96365; P9047

== ENCOUNTER → 2022-08-03 | Outpatient (CLI) | payer MEDICARE ==
[~2022-08-03] MED LIST changes: +CORE25TA PO; +MM S100C PO
[2022-08-03 10:57] VITALS: BP 116/72
[2022-08-03 11:00] LABS: INR 1.73; PROTHROMBIN TIME 20.6 SECONDS (12.5-14.5)
[2022-08-03 11:17] VITALS: BP 118/56
== END ==
LOC: M IRPRO 09:57
PROVIDERS: ATTEND Internal Medicine Gastroenterology
DX: R18.8 Other ascites (principal); K74.60 Unspecified cirrhosis of liver; C21.0 Malignant neoplasm of anus, unspecified
CPT/HCPCS: 49083; 85610; 96365; P9047

== ENCOUNTER → 2022-08-12 | Outpatient (CLI) | payer MEDICARE ==
[~2022-08-12] MED LIST changes: -LIDOCAINE 1% MDV 20ML VIAL As Ordered ONE
[2022-08-12 10:20] VITALS: BP 131/68
[2022-08-12 10:26] VITALS: BP 126/76
[2022-08-12 10:31] VITALS: BP 133/80
[2022-08-12 10:40] LABS: ALBUMIN 2.5 G/DL (3.2-5.2); BILIRUBIN,TOTAL 0.6 MG/DL (0.3-1.2); CREATININE FOR GFR 1.76 MG/DL (0.70-1.30); GLOMERULAR FILTRATION RATE 42.1 (>49); POTASSIUM SERUM 5.1 MMOL/L (3.5-5.1); TOTAL PROTEIN 5.6 G/DL (5.7-8.2)
[2022-08-12 11:32] LABS: INR 1.8; PROTHROMBIN TIME 21.2 SECONDS (12.5-14.5)
[2022-08-12 11:33] LABS: PARTIAL THROMBOPLASTIN TIME 31.9 SECONDS (24.8-34.2)
== END ==
LOC: M IRPRO 09:41
PROVIDERS: ATTEND Internal Medicine Gastroenterology
DX: R18.8 Other ascites (principal); K74.60 Unspecified cirrhosis of liver; C21.0 Malignant neoplasm of anus, unspecified
CPT/HCPCS: 36415; 49083; 80053; 85610; 85730; 96374; P9047

== ENCOUNTER → 2022-08-17 | Outpatient (CLI) | payer MEDICARE ==
[2022-08-17 10:55] VITALS: BP 113/58
[2022-08-17 10:58] LABS: INR 1.57; PROTHROMBIN TIME 19.1 SECONDS (12.5-14.5)
[2022-08-17 10:59] LABS: PARTIAL THROMBOPLASTIN TIME 31.8 SECONDS (24.8-34.2)
[2022-08-17 11:14] VITALS: BP 121/60
== END ==
LOC: M IRPRO 09:44
PROVIDERS: ATTEND Internal Medicine Gastroenterology
DX: R18.8 Other ascites (principal); K74.60 Unspecified cirrhosis of liver; C21.0 Malignant neoplasm of anus, unspecified
CPT/HCPCS: 49083; 85610; 85730; 96365; P9047

== ENCOUNTER → 2022-08-24 | Outpatient (CLI) | payer MEDICARE ==
[2022-08-24 15:03] VITALS: BP 121/68
[2022-08-24 15:09] LABS: INR 1.82; PROTHROMBIN TIME 21.4 SECONDS (12.5-14.5)
[2022-08-24 15:10] VITALS: BP 111/66
[2022-08-24 15:10] LABS: PARTIAL THROMBOPLASTIN TIME 33.2 SECONDS (24.8-34.2)
[2022-08-24 15:25] VITALS: BP 123/70
== END ==
LOC: M IRPRO 14:10
PROVIDERS: ATTEND Internal Medicine Gastroenterology
DX: R18.8 Other ascites (principal); K74.60 Unspecified cirrhosis of liver
CPT/HCPCS: 49083; 85610; 85730; 96365; P9047

== ENCOUNTER → 2022-09-01 | Outpatient (CLI) | payer MEDICARE ==
[2022-09-01 13:35] VITALS: BP 116/70
[2022-09-01 13:40] VITALS: BP 128/52
[2022-09-01 13:44] VITALS: BP 120/68
[2022-09-01 13:49] VITALS: BP 123/61
[2022-09-01 13:54] LABS: INR 2.31; PROTHROMBIN TIME 25.8 SECONDS (12.5-14.5)
[2022-09-01 13:55] VITALS: BP 121/69
== END ==
LOC: M IRPRO 12:52
PROVIDERS: ATTEND Internal Medicine Gastroenterology
DX: R18.8 Other ascites (principal); K74.60 Unspecified cirrhosis of liver
CPT/HCPCS: 49083; 85610; 96365; P9047

== ENCOUNTER → 2022-09-08 | Outpatient (CLI) | payer MEDICARE ==
[2022-09-08 11:58] LABS: INR 1.93; PROTHROMBIN TIME 22.4 SECONDS (12.5-14.5)
[2022-09-08 12:19] VITALS: BP 99/64
[2022-09-08 12:30] VITALS: BP 109/68
[2022-09-08 12:40] VITALS: BP 115/64
== END ==
LOC: M IRPRO 10:49
PROVIDERS: ATTEND Physician Assistant
DX: R18.8 Other ascites (principal)
CPT/HCPCS: 49083; 85610; 96365; P9047

== ENCOUNTER → 2022-09-16 | Outpatient (CLI) | payer MEDICARE ==
[2022-09-16 10:13] LABS: INR 2.66; PROTHROMBIN TIME 28.8 SECONDS (12.5-14.5)
[2022-09-16 10:14] LABS: PARTIAL THROMBOPLASTIN TIME 38.3 SECONDS (24.8-34.2)
[2022-09-16 10:29] VITALS: BP 104/56
[2022-09-16 10:50] VITALS: BP 142/84
== END ==
LOC: M IRPRO 09:20
PROVIDERS: ATTEND Physician Assistant
DX: R18.8 Other ascites (principal)
CPT/HCPCS: 49083; 85610; 85730; 96365; P9047

== ENCOUNTER → 2022-09-16 | Outpatient (CLI) | payer OTHER, MEDICARE | LOC: M RAD 09:38 | PROVIDERS: ATTEND Physical Medicine & Rehabilitation | DX: M16.11 Unilateral primary osteoarthritis, right hip (principal) ==

== ENCOUNTER → 2022-09-23 | Outpatient (CLI) | payer OTHER, MEDICARE ==
[~2022-09-23] MED LIST changes: +PHYT5TAB9 PO
[2022-09-23 09:35] VITALS: BP 112/59
[2022-09-23 10:16] LABS: INR 3.34; PROTHROMBIN TIME 34.4 SECONDS (12.5-14.5)
[2022-09-23 10:17] LABS: PARTIAL THROMBOPLASTIN TIME 36.3 SECONDS (24.8-34.2)
== END ==
LOC: M IRPRO 09:20
PROVIDERS: ATTEND Physician Assistant
DX: R18.8 Other ascites (principal)

== ENCOUNTER → 2022-09-27 | Outpatient (CLI) | payer MEDICARE ==
[2022-09-27 13:30] VITALS: BP 93/54
[2022-09-27 13:41] VITALS: BP 113/66
== END ==
LOC: M IRPRO 11:43
PROVIDERS: ATTEND Physician Assistant
DX: R18.8 Other ascites (principal)
CPT/HCPCS: 49083; 96365; P9047

== ENCOUNTER → 2022-10-05 | Outpatient (CLI) | payer MEDICARE ==
[2022-10-05 12:36] LABS: INR 3.24; PROTHROMBIN TIME 33.6 SECONDS (12.5-14.5)
[2022-10-05 12:37] LABS: PARTIAL THROMBOPLASTIN TIME 34.8 SECONDS (24.8-34.2)
[2022-10-05 12:45] VITALS: BP 108/61
[2022-10-05 13:04] VITALS: BP 101/56
== END ==
LOC: M IRPRO 11:29
PROVIDERS: ATTEND Internal Medicine Gastroenterology
DX: R18.8 Other ascites (principal); E11.9 Type 2 diabetes mellitus without complications; Z79.01 Long term (current) use of anticoagulants
CPT/HCPCS: 49083; 83036; 85610; 85730; 96365; P9047

== ENCOUNTER → 2022-10-05 | Outpatient (CLI) | payer MEDICARE ==
[2022-10-05 14:06] LABS: HEMOGLOBIN A1c 6.4 % (4.0-6.0)
== END ==
LOC: M LAB 11:38
PROVIDERS: ATTEND Student in an Organized Health Care Education/Training Program
DX: E11.9 Type 2 diabetes mellitus without complications (principal)

== ENCOUNTER → 2022-10-12 | Outpatient (CLI) | payer MEDICARE ==
[2022-10-12 13:35] VITALS: BP 118/59
[2022-10-12 14:12] LABS: INR 3.32; PROTHROMBIN TIME 34.2 SECONDS (12.5-14.5)
== END ==
LOC: M IRPRO 13:28
PROVIDERS: ATTEND Internal Medicine Gastroenterology
DX: R18.8 Other ascites (principal)

== ENCOUNTER → 2022-10-13 | Outpatient (CLI) | payer MEDICARE ==
[2022-10-13 13:38] LABS: INR 2.87; PROTHROMBIN TIME 30.5 SECONDS (12.5-14.5)
[2022-10-13 13:39] LABS: PARTIAL THROMBOPLASTIN TIME 45.3 SECONDS (24.8-34.2)
== END ==
LOC: M LAB 12:27
PROVIDERS: ATTEND Internal Medicine Hematology & Oncology
DX: C21.0 Malignant neoplasm of anus, unspecified (principal); Z79.899 Other long term (current) drug therapy; Z79.01 Long term (current) use of anticoagulants

== ENCOUNTER → 2022-10-14 | Outpatient (CLI) | payer MEDICARE ==
[2022-10-14 15:07] LABS: INR 2.41; PROTHROMBIN TIME 26.6 SECONDS (12.5-14.5)
[2022-10-14 15:08] LABS: PARTIAL THROMBOPLASTIN TIME 38.8 SECONDS (24.8-34.2)
== END ==
LOC: M LAB 13:51
PROVIDERS: ATTEND Internal Medicine Hematology & Oncology
DX: C21.0 Malignant neoplasm of anus, unspecified (principal); Z79.01 Long term (current) use of anticoagulants

== ENCOUNTER → 2022-10-14 | Outpatient (CLI) | payer MEDICARE ==
[2022-10-14 16:17] VITALS: BP 105/61
[2022-10-14 16:24] VITALS: BP 104/30
[2022-10-14 16:34] VITALS: BP 109/62
== END ==
LOC: M IRPRO 15:44
PROVIDERS: ATTEND Internal Medicine Gastroenterology
DX: R18.8 Other ascites (principal)
CPT/HCPCS: 49083; 96365; P9047

== ENCOUNTER → 2022-10-21 | Outpatient (CLI) | payer MEDICARE ==
[2022-10-21 15:42] VITALS: BP 98/60
[2022-10-21 15:46] VITALS: BP 94/56
[2022-10-21 15:52] VITALS: BP 98/56
== END ==
LOC: M IRPRO 13:58
PROVIDERS: ATTEND Internal Medicine Gastroenterology
DX: R18.8 Other ascites (principal)
CPT/HCPCS: 49083; 96374; P9047

== ENCOUNTER → 2022-10-21 | Outpatient (CLI) | payer MEDICARE ==
[2022-10-21 14:34] LABS: INR 2.67; PROTHROMBIN TIME 28.9 SECONDS (12.5-14.5)
[2022-10-21 14:35] LABS: PARTIAL THROMBOPLASTIN TIME 39.3 SECONDS (24.8-34.2)
== END ==
LOC: M IRPRO 12:56
PROVIDERS: ATTEND Specialist
DX: C21.0 Malignant neoplasm of anus, unspecified (principal); Z79.01 Long term (current) use of anticoagulants

== ENCOUNTER 2022-10-28 13:44 | Inpatient (IN) | payer MEDICARE ==
[~2022-10-28] VITALS: Ht 175.3 cm; Wt 100.1 kg
[2022-10-28 14:33] LABS: BASO % 0.2 % (0.0-1.0); EOS # 0.1 10^3/uL (0.0-0.5); EOS % 0.8 % (0.0-3.0); HEMOGLOBIN 10.4 g/dl (13.5-17.5); LYMPH # 0.4 10^3/uL (1.5-5.0); MEAN CORPUSCULAR HEMOGLOBIN 29.3 pg (27.0-33.0); MEAN CORPUSCULAR HGB CONC 32.5 g/dl (32.0-36.5); MEAN CORPUSCULAR VOLUME 90.1 fl (80.0-96.0); MONO # 0.8 10^3/uL (0.0-0.8); NEUTROPHILS # 7.4 10^3/uL (1.5-8.5); NEUTROPHILS % 84.5 % (36.0-66.0); PLATELET COUNT, AUTOMATED 118 10^3/uL (150-450); RED BLOOD COUNT 3.55 10^6/uL (4.30-6.10); WHITE BLOOD COUNT 8.8 10^3/uL (4.0-10.0)
[2022-10-28 14:44] LABS: INR 2.27; PROTHROMBIN TIME 25.4 SECONDS (12.5-14.5)
[2022-10-28 15:39] LABS: ALBUMIN 2.1 G/DL (3.2-5.2); ALKALINE PHOSPHATASE 64 U/L (46-116); ALT/SGPT 42 U/L (7.0-40); AST/SGOT 69 U/L (<34); BILIRUBIN,DIRECT 0.6 MG/DL (<0.4); BILIRUBIN,TOTAL 0.8 MG/DL (0.3-1.2); BLOOD UREA NITROGEN 107 MG/DL (9-23); CALCIUM LEVEL 8.2 MG/DL (8.3-10.6); CARBON DIOXIDE LEVEL 25 MMOL/L (20-31); CHLORIDE LEVEL 95 MMOL/L (98-107); CK-MB VALUE MASS 1.4 NG/ML (<3.6); CPK CREATINE PHOSPHOKINASE 41 U/L (46-171); CREATININE FOR GFR 3.95 MG/DL (0.70-1.30); GLOMERULAR FILTRATION RATE 16.6 (>49); GLUCOSE, FASTING 76 MG/DL (74-106); MB/CK RELATIVE INDEX 3.41 (< OR =4); SODIUM LEVEL 127 MMOL/L (136-145); THYROID STIMULATING HORMONE 1.578 uIU/ML (0.55-4.78); TOTAL PROTEIN 5.2 G/DL (5.7-8.2)
[2022-10-28 15:46] VITALS: BP 93/55
[2022-10-28 16:15] VITALS: BP 94/50
[2022-10-28] MEDS ORDERED: PATIROMER SORBITEX CALCIUM 8.4 GM POWDER PACKET (VELTASSA) PO ONE (16:50)
[2022-10-28 17:24] LABS: CREATININE,RANDOM URINE 98.5 MG/DL
[2022-10-28 17:28] LABS: SODIUM,RANDOM URINE < 10 MMOL/L
[2022-10-28] MEDS ORDERED: HumuLIN R (REGULAR) INSULIN (NovoLIN R) **100U/ML** PER UNIT IV STA ×2 (17:44→22:13)
[2022-10-28] MEDS ORDERED: DEXTROSE 50% 50ML SYRINGE IV STA ×2 (17:44→22:13)
[2022-10-28] MEDS ORDERED: CALCIUM GLUCONATE 1,000 MG in D5W MINI-BAG PLUS 100 ML IV ONE (17:45)
[2022-10-28] MEDS: OCTREOTIDE ACETATE 100MCG/ML VIAL **IV ADMINISTRATION ONLY IV SCH (18:44)
[2022-10-28] MEDS ORDERED: FENO54TA2 PO (18:56)
[2022-10-28] MEDS ORDERED: LOSA100T45 PO (18:56)
[2022-10-28] MEDS ORDERED: HOME MED LIST COMPLETE! XX SCH (19:00)
[2022-10-28] MEDS: NS 1,000 ML IV SCH (19:34)
[2022-10-28] MEDS ORDERED: IPRATROPIUM 0.5MG/ALBUTEROL 2.5MG INH SOL UD 3ML (DUONEB) NEB PRN (19:50)
[2022-10-28] MEDS ORDERED: FERROUS SULFATE 325MG TAB PO SCH (21:00)
[2022-10-28] MEDS ORDERED: MIDODRINE 5 MG TAB PO ONE (21:15)
[2022-10-28 21:33] LABS: VENOUS BASE EXCESS -3.6 (-2.0-2.0); VENOUS HCO3 22.8 MEQ/L (23.0-27.0); VENOUS O2 SATURATION 90.7 % (60.0-80.0); VENOUS PARTIAL PRESSURE CO2 47.6 mmHg (38.0-50.0); VENOUS PARTIAL PRESSURE O2 66.4 mmHg (30.0-50.0); VENOUS PH 7.299 UNITS (7.330-7.430); VENOUS STANDARD HCO3 21.3 MEQ/L; VENOUS TOTAL CO2 24.3 MEQ/L (24.0-28.0)
[2022-10-28 21:55] VITALS: BP 98/56
[2022-10-28] MEDS ORDERED: GLUCAGON INJ 1MG VIAL SC PRN (21:55)
[2022-10-28] MEDS ORDERED: DEXTROSE 50% 50ML SYRINGE IV PRN (21:55)
[2022-10-28] MEDS ORDERED: GLUCOSE 4GM CHEW TABLET PO PRN (21:55)
[2022-10-28 22:09] LABS: CALCIUM LEVEL 8.1 MG/DL (8.3-10.6); CREATININE FOR GFR 3.85 MG/DL (0.70-1.30); GLOMERULAR FILTRATION RATE 17.1 (>49)
[2022-10-28] MEDS: PANTOPRAZOLE 40MG VIAL IV SCH (22:40)
[2022-10-28] MEDS: GABAPENTIN 100 MG CAP PO SCH (22:56)
[2022-10-28] MEDS ORDERED: ALBUTEROL SULFATE 2.5MG/0.5ML INH NEB SOLN NEB ONE (23:00)
[2022-10-28] MEDS ORDERED: LACTULOSE 20GM/30ML SYRUP UDC PO ONE (23:00)
[2022-10-28] MEDS ORDERED: ACETAMINOPHEN TAB 650MG DOSE (2X325MG) PO ONE (23:00)
[2022-10-28 23:14] VITALS: BP 90/51
[2022-10-28 23:33] VITALS: BP 94/55
[2022-10-29 00:24] VITALS: BP 99/54
[2022-10-29 01:34] LABS: CALCIUM LEVEL 8.2 MG/DL (8.3-10.6); CREATININE FOR GFR 3.85 MG/DL (0.70-1.30); GLOMERULAR FILTRATION RATE 17.1 (>49); POTASSIUM SERUM 6.5 MMOL/L (3.5-5.1)
[2022-10-29] MEDS: OCTREOTIDE ACETATE 100MCG/ML VIAL **IV ADMINISTRATION ONLY IV SCH ×2 (01:48→10:16)
[2022-10-29] MEDS ORDERED: SOD POLYSTYRENE SULFONATE SUSP 15GM 60ML UD PO ONE (02:00)
[2022-10-29] MEDS ORDERED: DEXTROSE 50% 50ML SYRINGE IV STA ×2 (02:29→07:23)
[2022-10-29] MEDS ORDERED: HumuLIN R (REGULAR) INSULIN (NovoLIN R) **100U/ML** PER UNIT IV STA ×2 (02:29→07:23)
[2022-10-29] MEDS ORDERED: CALCIUM GLUCONATE 1,000 MG in D5W MINI-BAG PLUS 100 ML IV ONE ×2 (03:00→08:00)
[2022-10-29 04:54] VITALS: BP 142/80
[2022-10-29] MEDS ORDERED: LACTULOSE 20GM/30ML SYRUP UDC PO SCH (06:00)
[2022-10-29] MEDS: INSULIN LISPRO (NovoLOG) PER UNIT SC SCH ×3 (06:00→12:00)
[2022-10-29 06:13] LABS: HEMOGLOBIN 8.5 g/dl (13.5-17.5); MEAN CORPUSCULAR HEMOGLOBIN 28.8 pg (27.0-33.0); MEAN CORPUSCULAR HGB CONC 32.7 g/dl (32.0-36.5); MEAN CORPUSCULAR VOLUME 88.1 fl (80.0-96.0); RED BLOOD COUNT 2.95 10^6/uL (4.30-6.10); WHITE BLOOD COUNT 8.7 10^3/uL (4.0-10.0)
[2022-10-29 06:20] LABS: PLATELET COUNT, AUTOMATED 96 10^3/uL (150-450)
[2022-10-29 06:48] LABS: ALBUMIN 2.1 G/DL (3.2-5.2); BILIRUBIN,TOTAL 0.7 MG/DL (0.3-1.2); CALCIUM LEVEL 8.2 MG/DL (8.3-10.6); CREATININE FOR GFR 3.98 MG/DL (0.70-1.30); GLOMERULAR FILTRATION RATE 16.4 (>49); MAGNESIUM LEVEL 2.4 MG/DL (1.8-2.4); POTASSIUM SERUM 6.8 MMOL/L (3.5-5.1); TOTAL PROTEIN 4.6 G/DL (5.7-8.2)
[2022-10-29 06:49] LABS: CALCIUM LEVEL 8.1 MG/DL (8.3-10.6); CREATININE FOR GFR 4.03 MG/DL (0.70-1.30); GLOMERULAR FILTRATION RATE 16.2 (>49); POTASSIUM SERUM 6.8 MMOL/L (3.5-5.1)
[2022-10-29] MEDS ORDERED: PATIROMER SORBITEX CALCIUM 8.4 GM POWDER PACKET (VELTASSA) PO ONE ×2 (07:15→09:00)
[2022-10-29] MEDS ORDERED: LACTULOSE 20GM/30ML SYRUP UDC PR ONE (07:50)
[2022-10-29] MEDS: MIDODRINE 5 MG TAB PO SCH ×2 (07:54→12:00)
[2022-10-29 08:00] VITALS: BP 100/50
[2022-10-29 08:36] LABS: ALBUMIN 2.2 G/DL (3.2-5.2); BILIRUBIN,DIRECT 0.4 MG/DL (<0.4); BILIRUBIN,TOTAL 0.7 MG/DL (0.3-1.2); TOTAL PROTEIN 4.4 G/DL (5.7-8.2)
[2022-10-29] MEDS: DOCUSATE SODIUM 100MG CAPSULE PO SCH ×2 (09:00→10:15)
[2022-10-29] MEDS: GABAPENTIN 100 MG CAP PO SCH ×2 (09:00→10:15)
[2022-10-29] MEDS ORDERED: SODIUM BICARBONATE 150 MEQ in D5W 1,000 ML IV SCH (10:00)
[2022-10-29] MEDS: DEXTROSE 50% 50ML SYRINGE IV SCH ×2 (10:16→11:00)
[2022-10-29] MEDS: PANTOPRAZOLE 40MG VIAL IV SCH (10:16)
[2022-10-29 10:30] VITALS: BP 103/57
[2022-10-29] MEDS ORDERED: ONDANSETRON 4MG 2ML VIAL IV ONE (10:40)
[2022-10-29] MEDS ORDERED: HYOSCYAMINE SULFATE 0.125 MG SUBL TABLET PO PRN (11:45)
[2022-10-29] MEDS ORDERED: BISACODYL 10MG SUPP PR PRN (11:45)
[2022-10-29] MEDS ORDERED: ONDANSETRON 4MG 2ML VIAL IV PRN (11:45)
[2022-10-29] MEDS ORDERED: ATROPINE SULFATE 1% OPHTH SOLN 2ML BTL SL PRN (11:45)
[2022-10-29] MEDS ORDERED: SCOPOLAMINE 1MG TRANSDERMAL PATCH TOP PRN (11:45)
[2022-10-29 12:00] VITALS: BP 100/62
[2022-10-29] MEDS ORDERED: PATIROMER SORBITEX CALCIUM 8.4 GM POWDER PACKET (VELTASSA) PO SCH (12:00)
[2022-10-29] MEDS: MORPHINE 2 MG/ML 1ML VIAL IV PRN ×3 (14:04→22:15)
[2022-10-29] MEDS: LORazepam 2 MG/ML 1ML VIAL IV PRN ×3 (14:39→22:41)
[2022-10-29] MEDS ORDERED: MORPHINE 4 MG/ML 1ML VIAL IV ONE (23:15)
[2022-10-29] MEDS ORDERED: LORazepam 2 MG/ML 1ML VIAL IV ONE (23:15)
[2022-10-30] MEDS ORDERED: LORazepam 2 MG/ML 1ML VIAL IV PRN
[2022-10-30] MEDS ORDERED: MORPHINE 4 MG/ML 1ML VIAL IV PRN
== END 2022-10-30 00:42 | disposition expired | DRG 441 ==
LOC: M ED 13:44 → M ED INP 19:50 → M MSPAV 19:50 → M PCU 21:54 → M MSPAV 10-29 14:15
PROVIDERS: ADMIT Family Medicine; ATTEND General Practice
PROC: 30233J1 Transfusion of Nonautologous Serum Albumin into Peripheral Vein, Percutaneous Approach (ICD-10-PCS; principal; 2022-10-28)
DX: K72.90 Hepatic failure, unspecified without coma (principal); K76.7 Hepatorenal syndrome; G93.41 Metabolic encephalopathy; J96.01 Acute respiratory failure with hypoxia; N17.9 Acute kidney failure, unspecified; K76.6 Portal hypertension; C21.0 Malignant neoplasm of anus, unspecified; I85.00 Esophageal varices without bleeding; E66.2 Morbid (severe) obesity with alveolar hypoventilation; I50.32 Chronic diastolic (congestive) heart failure; I13.0 Hypertensive heart and chronic kidney disease with heart failure and stage 1 through stage 4 chronic kidney disease, or unspecified chronic kidney disease; E87.1 Hypo-osmolality and hyponatremia; R18.8 Other ascites; K76.82 Hepatic encephalopathy; Z66 Do not resuscitate; E87.5 Hyperkalemia; N18.30 Chronic kidney disease, stage 3 unspecified; R34 Anuria and oliguria; K74.60 Unspecified cirrhosis of liver; I86.8 Varicose veins of other specified sites; I95.9 Hypotension, unspecified; J98.4 Other disorders of lung; J44.9 Chronic obstructive pulmonary disease, unspecified; D63.8 Anemia in other chronic diseases classified elsewhere; E11.649 Type 2 diabetes mellitus with hypoglycemia without coma; I73.9 Peripheral vascular disease, unspecified; E11.22 Type 2 diabetes mellitus with diabetic chronic kidney disease; E11.51 Type 2 diabetes mellitus with diabetic peripheral angiopathy without gangrene; E78.5 Hyperlipidemia, unspecified; K21.9 Gastro-esophageal reflux disease without esophagitis; L40.9 Psoriasis, unspecified; F43.20 Adjustment disorder, unspecified; G89.29 Other chronic pain; F17.200 Nicotine dependence, unspecified, uncomplicated; Q10.0 Congenital ptosis; Z89.512 Acquired absence of left leg below knee; Z88.1 Allergy status to other antibiotic agents; Z88.8 Allergy status to other drugs, medicaments and biological substances; Z79.84 Long term (current) use of oral hypoglycemic drugs; Z79.4 Long term (current) use of insulin; Z79.01 Long term (current) use of anticoagulants; Z79.899 Other long term (current) drug therapy; Z20.822 Contact with and (suspected) exposure to COVID-19; Z68.32 Body mass index [BMI] 32.0-32.9, adult; Z92.21 Personal history of antineoplastic chemotherapy

== ENCOUNTER → 2022-10-28 | Outpatient (CLI) | payer MEDICARE | LOC: M IRPRO 13:17 | PROVIDERS: ATTEND Internal Medicine Gastroenterology | DX: R18.8 Other ascites (principal) ==